=== PATIENT | female | born 1965 | race Caucasian/White ===

== ENCOUNTER 2019-11-24 22:15 | Emergency (ER) | payer MEDICARE, MEDICAID, SELFPAY ==
[2019-11-24 22:20] VITALS: O2SAT 86
[2019-11-24 22:29] VITALS: BP 120/76; BP 169/73; PULSE 66; PULSE 69; RESP 16; TEMP 36.5; O2SAT 94; O2SAT 97; BMI 39.5
[2019-11-24 23:09] VITALS: PULSE 65; RESP 16; O2SAT 97
--- NOTE | 2019-11-24 23:09 | XR_ITS ---
EXAMINATION: XR CHEST CLINICAL INFORMATION: Shortness of breath COMPARISON: None TECHNIQUE: Frontal view of the chest was obtained. FINDINGS: Heart size within normal limits. CHF. Some minimal bibasilar densities are seen which may represent atelectasis. An early infiltrate cannot be excluded, especially on the right. A tiny right pleural effusion may be present. No left effusion is seen. IMPRESSION: Mild bibasilar density. An early infiltrate could be present
--- NOTE | 2019-11-24 23:09 | ECG_ITS ---
Test Reason : SOB Blood Pressure : / mmHG Vent. Rate : 066 BPM Atrial Rate : 066 BPM P-R Int : 164 ms QRS Dur : 078 ms QT Int : 430 ms P-R-T Axes : 051 052 134 degrees QTc Int : 450 ms Normal sinus rhythm ST & T wave abnormality, consider lateral ischemia Abnormal ECG No previous ECGs available Referred By: Catalino Pinto Electronically Signed By:HILLARY DUMONT
--- NOTE | 2019-11-24 23:29 | ED.SOB ---
HPI - SOB/Dyspnea General Chief Complaint: Dyspnea Stated Complaint: shortness of breath Time Seen by Provider: 11/24/19 23:07 Source: patient Mode of arrival: EMS History of Present Illness HPI Narrative: 54-year-old female coming in from respite care secondary to shortness of breath, not taking medications and agitation. Patient is a poor historian unable to obtain a proper history from patient MD elicited complaint: shortness of breath Related Data Home oxygen amount: none Allergies Allergy/AdvReac Type Severity Reaction Status Date / Time Penicillins Allergy Mild unkown Verified 11/24/19 23:09 Sulfa (Sulfonamide Allergy Mild unknown Verified 11/24/19 23:09 Antibiotics) Review of Systems Review of Systems: unable to obtain secondary to poor historian PMF Past Medical History Attestation statement: The following information was validated with the patient. Medical History Bipolar 1 disorder Diabetes HTN (hypertension) Kidney disease Social History Social History Alcohol intake: never Smoking Status: Current every day smoker Smoked in Last 30 Days: Yes Use of substances other than those prescribed or required for medical reasons: No Advance Directives: No Advance Directives Information Provided: Yes Physical Exam Vital Signs and I&O and Narrative: Vital Signs and I&O: Vital Signs Temp 97.7 F 11/24/19 22:29 Pulse 69 11/24/19 22:29 Resp 16 11/24/19 22:29 BP 169/73 H 11/24/19 22:29 Pulse Ox 94 11/24/19 22:29 Intake & Output 11/24/19 11/24/19 11/25/19 06:59 18:59 06:59 Weight 111.13 kg Body Mass Index 39.5 reviewed vital signs Const: Other: Appearance: Alert. obese awake and following commands No acute distress. Eyes: Pupils equal, round and reactive to light. ENT: Pharynx normal. Neck: Normal inspection. Neck supple. CVS: Normal heart rate and rhythm. Pulses normal. Respiratory: mild respiratory distress. Decreased bilateral breath sounds no rales no wheezing Abdomen: Soft and nontender. Skin: Skin warm and dry. Normal skin color. Normal skin turgor. Extremities: positive bilateral lower extremity edema. no rational lacerations no bleeding Neuro: awake and following simple commands. No motor deficit. No sensory deficit. General: cooperative Course Course Hospital Course: my differential diagnosis includes pulmonary embolism, acute coronary syndrome, heart failure, pneumonia MDM - SOB/Dyspnea Lab Data Attestation: I reviewed the patient's lab results. ECG Data Attestation: I personally reviewed and interpreted this ECG as follows: Interpretation: rate of 66, normal sinus rhythm. Normal axis. Nonspecific ST TT changes. No STEMI
[2019-11-24 23:46] LABS: MANUAL DIFF FLAG NO
[2019-11-24 23:50] LABS: Basophils Absolute Auto 0.1 X10*3/uL (0.0-0.2); Basophils Percent Auto 1.1 % (0-2); Eosinophils Absolute Auto 0.3 X10*3/uL (0.0-0.4); Eosinophils Percent Auto 4.4 % (0-4); Hematocrit 25.6 % (37-47); Hemoglobin 8.3 g/dl (12.0-16.0); Imm Gran Abs Auto 0.02 X10*3/uL (0.00-0.03); Imm Gran Pct Auto 0.3 % (0.0-0.4); Lymphocytes Absolute Auto 2.8 X10*3/uL (1.2-4.9); Lymphocytes Percent Auto 46.3 % (20-40); Mean Corpuscular HGB Conc 32.4 g/dl (31.0-35.0); Mean Corpuscular Volume 92.4 fL (80-98); Mean Platelet Volume 11.1 fL (9.4-12.3); Monocytes Absolute Auto 0.6 X10*3/uL (0.1-1.2); Monocytes Percent Auto 10.3 % (2-11); Neutrophils Absolute Auto 2.3 X10*3/uL (2.0-8.3); Neutrophils Percent Auto 37.6 % (45-73); Platelet Count 202 X10*3/uL (160-400); Red Blood Count 2.77 X10*6/uL (4.20-5.50); Red Cell Distribution Width 14.5 % (11.0-16.0); White Blood Count 6.1 X10*3/uL (4.8-10.8)
[2019-11-25] VITALS (10 sets, daily range): BP systolic 120–152; BP diastolic 46–84; PULSE 66–127; RESP 16–23; TEMP 36.1–37.2; O2SAT 93–98
--- NOTE | 2019-11-25 | CT_ITS ---
EXAMINATION: CT PULMONARY EMBOLISM STUDY CLINICAL INFORMATION: Hypoxia. COMPARISON: 11/24/2019. TECHNIQUE: Contiguous helical images of the chest were obtained following the administration of IV contrast. Multiplanar reconstructions were performed. MIPS were obtained and reviewed. DLP: 453 mGy-cm. CONTRAST: 65 mL of Omnipaque 350 were administered without incident. FINDINGS: The heart is of normal size. There is no pericardial effusion. The great vessels are unremarkable. Specifically, there is no pulmonary arterial filling defect. There is no CT evidence for pulmonary embolism. There are no chest wall masses. Review of lung windows demonstrates that there are no pneumothoraces. There are small bilateral pleural effusions with associated bilateral lower lobe atelectasis. Limited evaluation of the upper abdomen demonstrates that the liver is of normal size and attenuation without focal lesions. Normal adrenal glands are identified. IMPRESSION: No CT evidence for pulmonary embolism. Small bilateral pleural effusions with associated bibasilar atelectasis. Automated exposure control (Care Dose) Adjustment of the mA and/or kv according to patient size (this includes techniques or standardized protocols for targeted exams where dose is matched to indication / reason for exam; i.e. extremities or head).
[2019-11-25 00:03] LABS: D Dimer 639 NG/ML
[2019-11-25 00:21] LABS: B Type Natriuretic Peptide 739 pg/mL (<100); Troponin-I High Sensitivity 4.6 ng/L (<3.5-17.0)
[2019-11-25 00:24] LABS: Alanine Aminotransferase 7 U/L (0-31); Albumin Level 2.9 g/dL (3.5-5.0); Alkaline Phosphatase 45 U/L (39-117); Anion Gap 14 (12-20); Aspartate Amino Transferase 10 U/L (5-31); Bilirubin Direct < 0.2 mg/dL (0.0-0.5); Bilirubin Total 0.2 mg/dL (0.0-1.0); Blood Urea Nitrogen 14 mg/dL (9-16); Calcium 8.6 mg/dL (8.4-10.2); Carbon Dioxide 24 mmol/L (22-29); Chloride 104 mmol/L (96-108); Creatinine Clr Calc Pharmacy 75.6; Estimated Glomerular Filt Rate 52; Glucose Random 76 mg/dL (60-115); Lipase 10 U/L (8-78); Potassium 4.3 mmol/l (3.3-5.1); Sodium 138 mmol/L (135-145); Total Protein 5.5 g/dL (6.5-8.0)
--- NOTE | 2019-11-25 00:58 | ED.GENADULT ---
HPI - General Adult General Chief complaint: Dyspnea Stated complaint: shortness of breath Time Seen by Provider: 11/24/19 23:07 Source: patient Mode of arrival: EMS History of Present Illness HPI narrative: patient sent over by respite for not acting right, history of bipolar not taking medications and depressed. He also noted that she had bilateral leg edema with shortness of breath. Sent over on a Section [facility] to be evaluated by crisis. And medically. Patient recently discharged from [facility] for similar Onset (ago): day(s) Severity: mild Related Data Home Medications Medication Instructions Recorded Confirmed Abilify 11/25/19 Abilify 30 mg DAILY 11/25/19 11/25/19 Colace 100 mg BID 11/25/19 11/25/19 Vistaril 50 mg TID 11/25/19 11/25/19 acetaminophen [Mapap Extra 1 tab PO Q6H PRN 11/25/19 11/25/19 Strength] divalproex 3 tab PO BEDTIME 11/25/19 11/25/19 lisinopril 1 tab PO DAILY 11/25/19 11/25/19 metformin 1 tab PO BID 11/25/19 11/25/19 metoprolol succinate 1 tab PO DAILY 11/25/19 11/25/19 multivitamin [Daily-Lisa] 1 tab PO DAILY 11/25/19 11/25/19 olanzapine 1 tab PO DAILY PRN 11/25/19 11/25/19 prazosin 1 mg PO BID 11/25/19 11/25/19 senna 8.6 mg BID 11/25/19 11/25/19 trazodone 4 tab PO BEDTIME 11/25/19 11/25/19 Allergies Allergy/AdvReac Type Severity Reaction Status Date / Time Penicillins Allergy Mild unkown Verified 11/24/19 23:09 Sulfa (Sulfonamide Allergy Mild unknown Verified 11/24/19 23:09 Antibiotics) Review of Systems Review of Systems: Constitutional : obese No Fever, No Chills, No Night Sweats, No Fatigue, No Malaise ENT/Mouth : No Hearing loss, No Ear Pain, No Nasal Congestion, No Sinus Pain, No Hoarseness, No sore throat, No Rhinorrhea, No Swallowing Difficulty Eyes: No Eye Pain, No Swelling, No Redness, No Foreign Body, No Discharge, No Vision Changes Cardiovascular : No Chest Pain, No SOB, No Dyspnea on Exertion, No Orthopnea, No Edema, No Palpitations Respiratory : No Cough, No Sputum, No Wheezing, No Smoke Exposure, No Dyspnea Gastrointestinal : No Nausea, No Vomiting, No Diarrhea, No Constipation, No abdominal Pain, No Hematochezia, No Melena Genitourinary : no irregular bleeding, No Dysuria, No Urinary Frequency, No Hematuria, No Urinary Incontinence, No Urgency, No Flank Pain, No Urinary Flow Changes, No Hesitancy Musculoskeletal : No joint pain, No Myalgias, bilateral pitting edema without ecchymosis without lacerations Skin : No Skin Lesions, No rash Neuro : No Weakness, No Numbness, No Paresthesias, No Loss of Consciousness, No Dizziness, No Headache Psych : No Anxiety/Panic, No Depression, No SI/HI/AH/VH, No Social Issues, Heme/Lymph: No Bruising, No Bleeding,No Lymphadenopathy Endocrine : No Polyuria, No Polydipsia, No Temperature Intolerance [facility] Past Medical History Medical History Bipolar 1 disorder Diabetes HTN (hypertension) Kidney disease Social History Social History Alcohol intake: never Smoking Status: Current every day smoker Smoked in Last 30 Days: Yes Use of substances other than those prescribed or required for medical reasons: No Advance Directives: No Advance Directives Information Provided: Yes Physical Exam Vital Signs and I&O and Narrative: Vital Signs and I&O: Vital Signs Temp 97.7 F 11/24/19 22:29 Pulse 67 11/25/19 00:04 Resp 23 H 11/25/19 00:04 BP 120/46 L 11/25/19 00:04 Pulse Ox 98 11/25/19 00:04 Intake & Output 11/24/19 11/24/19 11/25/19 06:59 18:59 06:59 Weight 111.13 kg Body Mass Index 39.5 vital signs noted Const: Other: Appearance: Alert. awake and alert No acute distress. Eyes: Pupils equal, round and reactive to light. ENT: Pharynx normal. Neck: Normal inspection. Neck supple. CVS: Normal heart rate and rhythm. Pulses normal. Respiratory: No respiratory distress. Breath sounds normal. Abdomen: Soft and nontender. Skin: Skin warm and dry. Normal skin color. Normal skin turgor. Extremities: positive bilateral pain and edema, no abrasions, no lacerations, intact neurovascular Neuro: awake and alert No motor deficit. No sensory deficit. General: cooperative Course Course Hospital Course: my differential diagnosis includes pulmonary embolism, acute coronary syndrome, heart failure, pneumonia Reevaluation(s) Reevaluation #1: patient sent to the emergency department for medical and psychiatric evaluation. Patient with a transient drop of oxygen however off oxygen patient remains well above 92%. Unless sleeping. CT scan of the chest without evidence of PE. 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 Will medically clear for evaluation on pH in Time: 01:50 Medical Decision Making Medical Records Medical records reviewed: Yes I reviewed the patient's medical records. Medical records narrative: records from [facility] with the discharge of 11/22/2019 were reviewed by me. records indicate that patient was there for shortness of breath as well as psychiatric evaluation. Patient was noted to have bilateral pedal edema in which was evaluated and had at echocardiogram on November 20 with a EF of 60 65%. patient was also worked up for anemia in which revealed microcytic anemia due to iron deficiency. Discharge labs on November 21 revealed that a hemoglobin of 8.1 and 25.1 hematocrit, in which 2 days numbers are 8.3 and 25 which are improved on arrival patient's BNP was greater than 3000 in which today's is improved at 739 Patient also had a venous Doppler of the bilateral extremities which showed edema no clots workup at [facility] secondary to shortness of breath and pedal edema reveal that today's workup is much improved. However at this point patient did have transient drop of oxygen and will do a CT scan of the chest for rule out PE secondary to an elevated D-dimer. Lab Data Lab results reviewed: Yes I reviewed the patient's lab results. Result diagrams: 11/24/19 23:39 11/24/19 23:39 Labs: Lab Results 11/24/19 11/24/19 11/24/19 Range/Units 23:39 23:39 23:39 WBC 6.1 (4.8-10.8) X10*3/uL RBC 2.77 L (4.20-5.50) X10*6/uL Hgb 8.3 L (12.0-16.0) g/dl Hct 25.6 L (37-47) % MCV 92.4 (80-98) fL MCH 30.0 (27.0-33.0) pg MCHC 32.4 (31.0-35.0) g/dl RDW 14.5 (11.0-16.0) % Plt Count 202 (160-400) X10*3/uL MPV 11.1 (9.4-12.3) fL Immature Gran % (Auto) 0.3 (0.0-0.4) % Neut % (Auto) 37.6 L (45-73) % Lymph % (Auto) 46.3 H (20-40) % [place] % (Auto) 10.3 (2-11) % Eos % (Auto) 4.4 H (0-4) % Baso % (Auto) 1.1 (0-2) % Neut # (Auto) 2.3 (2.0-8.3) X10*3/uL Lymph # (Auto) 2.8 (1.2-4.9) X10*3/uL [place] # (Auto) 0.6 (0.1-1.2) X10*3/uL Eos # (Auto) 0.3 (0.0-0.4) X10*3/uL Baso # (Auto) 0.1 (0.0-0.2) X10*3/uL Abs Immat Gran (auto) 0.02 (0.00-0.03) X10*3/uL Absolute Nucleated RBC 0.000 (0.0-0.012) X10*3/uL Nucleated RBC % (auto) 0.0 (0.0-0.2) /100WBC D-Dimer 639 NG/ML Hold Blue Top SEE NOTE Sodium 138 (135-145) mmol/L Potassium 4.3 (3.3-5.1) mmol/l Chloride 104 (96-108) mmol/L Carbon Dioxide 24 (22-29) mmol/L Anion Gap 14 (12-20) BUN 14 (9-16) mg/dL Creatinine 1.10 (0.5-1.4) mg/dL Estim Creat Clear Calc 75.6 Estimated GFR 52 Random Glucose 76 (60-115) mg/dL Calcium 8.6 (8.4-10.2) mg/dL Total Bilirubin 0.2 (0.0-1.0) mg/dL Direct Bilirubin < 0.2 (0.0-0.5) mg/dL AST 10 (5-31) U/L ALT 7 (0-31) U/L Alkaline Phosphatase 45 (39-117) U/L Troponin I High Sens (<3.5-17.0) ng/L B-Natriuretic Peptide (<100) pg/mL Total Protein 5.5 L (6.5-8.0) g/dL Albumin 2.9 L (3.5-5.0) g/dL Lipase 10 (8-78) U/L 11/24/19 Range/Units 23:39 WBC (4.8-10.8) X10*3/uL RBC (4.20-5.50) X10*6/uL Hgb (12.0-16.0) g/dl Hct (37-47) % MCV (80-98) fL MCH (27.0-33.0) pg MCHC (31.0-35.0) g/dl RDW (11.0-16.0) % Plt Count (160-400) X10*3/uL MPV (9.4-12.3) fL Immature Gran % (Auto) (0.0-0.4) % Neut % (Auto) (45-73) % Lymph % (Auto) (20-40) % [place] % (Auto) (2-11) % Eos % (Auto) (0-4) % Baso % (Auto) (0-2) % Neut # (Auto) (2.0-8.3) X10*3/uL Lymph # (Auto) (1.2-4.9) X10*3/uL [place] # (Auto) (0.1-1.2) X10*3/uL Eos # (Auto) (0.0-0.4) X10*3/uL Baso # (Auto) (0.0-0.2) X10*3/uL Abs Immat Gran (auto) (0.00-0.03) X10*3/uL Absolute Nucleated RBC (0.0-0.012) X10*3/uL Nucleated RBC % (auto) (0.0-0.2) /100WBC D-Dimer NG/ML Hold Blue Top Sodium (135-145) mmol/L Potassium (3.3-5.1) mmol/l Chloride (96-108) mmol/L Carbon Dioxide (22-29) mmol/L Anion Gap (12-20) BUN (9-16) mg/dL Creatinine (0.5-1.4) mg/dL Estim Creat Clear Calc Estimated GFR Random Glucose (60-115) mg/dL Calcium (8.4-10.2) mg/dL Total Bilirubin (0.0-1.0) mg/dL Direct Bilirubin (0.0-0.5) mg/dL AST (5-31) U/L ALT (0-31) U/L Alkaline Phosphatase (39-117) U/L Troponin I High Sens 4.6 (<3.5-17.0) ng/L B-Natriuretic Peptide 739 H (<100) pg/mL Total Protein (6.5-8.0) g/dL Albumin (3.5-5.0) g/dL Lipase (8-78) U/L Discharge Plan Discharge Clinical Impression: Bipolar 1 disorder, Depression, Pedal edema Prescriptions: No Action Abilify 30 mg DAILY RF: 0 Abilify RF: 0 multivitamin [Daily-Lisa] Tablet 1 tab PO DAILY RF: 0 metformin 500 mg tablet 1 tab PO BID RF: 0 trazodone 50 mg tablet 4 tab PO BEDTIME RF: 0 metoprolol succinate 50 mg tablet extended release 24 hr 1 tab PO DAILY RF: 0 prazosin 1 mg capsule 1 mg PO BID RF: 0 olanzapine 5 mg tablet 1 tab PO DAILY PRN (Reason: Agitation) RF: 0 acetaminophen [Mapap Extra Strength] 500 mg tablet 1 tab PO Q6H PRN (Reason: pain) RF: 0 lisinopril 10 mg tablet 1 tab PO DAILY RF: 0 divalproex 500 mg tablet extended release 24 hr 3 tab PO BEDTIME RF: 0 Colace 100 mg BID RF: 0 senna 8.6 mg BID RF: 0 Vistaril 50 mg TID RF: 0
[2019-11-25] MEDS: iohexoL 350 MG/ML 100 ML INFUS..BTL 75 ML IV (01:37)
--- NOTE | 2019-11-25 02:01 | PC.NURSE ---
Pt semi fowlers in bed, no distress and oxygen removed by provider. Pt s spo2 remains in 90 s. pt expressed that she has been depressed, and was discharged from respite, now has no place to live. Pt has her lock box with RX medications with her. When asked why she wouldn t take her medications, she said i was too tired, why bother. Pt mentions that she has a history of bipolar disorder and had something happen to her recently that she doesn't want to talk about.
--- NOTE | 2019-11-25 02:17 | PC.NURSE ---
SUMMARY FAXED TO [facility]
--- NOTE | 2019-11-25 02:45 | PC.NURSE ---
pt refusing anything to eat or drink. Pt has not had evening medications,
[2019-11-25 06:51] LABS: Glucose, Whole Blood 76 mg/dL (60-115)
--- NOTE | 2019-11-25 07:13 | PC.NURSE ---
Pt sat up out from her bed, got dressed and walked down the hallway towards the exit. Pt stopped at the door, security assisted walking patient to the [facility]. IV's removed.
--- NOTE | 2019-11-25 07:14 | PC.NURSE ---
REPORT RECIEVED. PT AMBULATED TO POD WITH STEADY GAIT, PT RESPONDING APPROPRIATELY TO STAFF, PT DENIES COMPLAINTS.
--- NOTE | 2019-11-25 09:30 | PC.NURSE ---
pt resting, calm and cooperative, reporting anxiety, provider aware.
[2019-11-25] MEDS: Multivitamin TABLET 1 TAB PO (10:18)
[2019-11-25] MEDS: ARIPiprazole 30 MG TABLET PO (10:18)
[2019-11-25] MEDS: metFORMIN HCl 500 MG TABLET PO (10:19)
[2019-11-25] MEDS: Metoprolol Succinate ER 50 MG TAB.ER.24H PO (10:46)
[2019-11-25] MEDS: Prazosin HCL 1 MG CAPSULE PO ×2 (10:47→21:08)
[2019-11-25] MEDS: lisinopriL 10 MG TABLET PO (10:47)
[2019-11-25] MEDS: OLANZapine 5 MG TABLET PO (11:21)
--- NOTE | 2019-11-25 11:22 | PC.NURSE ---
MEDICATED FOR BUILDING ANXIETY. PT HAS BEEN TOLD THAT SHE IS A CASE MNGNT FOR PLACEMENT. IS EAGER TO LEAVE EVEN THOUGH SHE HAS NOWHERE TO GO. THIS RN SUSPECTS THAT PT IS INCAPABLE OF COMPREHENDING CONSEQUENCES OF HER DECISIONS. IS EASILY REDIRECTABLE BUT FREQUENTLY ASKS TO GO HOME.
--- NOTE | 2019-11-25 12:05 | PC.NURSE ---
THIS RN CALLING CASE MANAGMENT. PT WAS ATTEMPTING TO ELOPE AND DIFFICULT TO REDIRECT. STOOD AT EXIT TO POD FOR 15-20 MINUTES. SECURITY WAS CALLED. PT EVENTUALLY REDIRECTED TO BED ONCE SECURITY PRESENT AND STATES IF IM GOING TO STAY HERE I'M GOING TO NEED SOME STRONG MEDS CASE MNGMENT SUGGESTING PSYCHCONSULT FOR DECISION MAKING ABILITY
--- NOTE | 2019-11-25 12:09 | PC.NURSE ---
MARY ANN FROM [facility] CALLING TO SPEAK WITH HAZEL DIRECTLY. STATES THAT PATIENT WILL SABATOG PLACEMENT AND WOULD LIKE TO SPEAK WITH PATIENT DIRECTLY TO ASSESS WILLINGNESS TO TAKE PLACEMENT. PT HAS BEEN HOPING FOR A BED AT [facility] BUT THERE WAS A COVIUD OUTBREAK. RECENTLY DX WITH CHF, HAD DIFF WITH ADL'S. PT IS ALLOWED TO KEEP SWEATPANTS ON IN POD BECAUSE OTHER AREAS OF COPERATION ARE TAKING PRIORITY. SECURITY CHECKED POCKETS.
--- NOTE | 2019-11-25 12:14 | MHC.CM.ED ---
Received case management consult. Patient came to ER from [facility]. Patient evaluated by [facility]. Cleared from crisis stand point. [facility] is not able to accept patient back. [facility] would agree to pay for motel for patient. However, she is not participating in daily ADL's. Referral broadcasted in [employer]. [facility] is able to offer a bed. Per Sylvia CUELLAR, patient has been trying to elope from the pod. She is alert and oriented but it is unsure if she has the ability to make her own medical decisions. Psych consult has been ordered to see if HCP needs to be invoked. Continue to monitor for d/c needs.
[2019-11-25] MEDS: hydrOXYzine HCL 50 MG TABLET PO ×2 (12:32→22:50)
[2019-11-25] MEDS: Nicotine 14 MG PATCH.TD24 TRANSDERMA (12:32)
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
--- NOTE | 2019-11-25 13:38 | MHC.CM.ED ---
Received telephone call from patient's [facility] worker, Rhoda. Rhoda can be reached via telephone at [phone]. Rhoda has gotten patient to agree to rehab. However patient is requesting to be at a facility that would allow her to smoke. T/W explained there were only 2 facilities prior to Covid that allowed patients to smoke. During the current pandemic, there are no facilities that will allow this. Rhoda will speak to patient. Continue to monitor for d/c needs.
--- NOTE | 2019-11-25 14:59 | MHC.CM.ED ---
Addendum entered by Jihan Matias 11/25/19 15:41: Patient was accepted at [facility], not [place]. Original Note: Received telephone call from Rhoda son [facility]. Patient is agreeable to going to [facility]. She is requesting prescription for nicotine patch and lozenges. Patient will need PASRR Level 2. Clinicals faxed to [facility]. Don't anticipate exemption letter will be received before tomorrow. Anticipate patient will remain in ER overnight night. Continue to monitor for d/c needs.
--- NOTE | 2019-11-25 15:23 | PC.NURSE ---
PT GETTING AGGITATED BUT ABLE TO REDIRECTABLE REQUESTING HALDOL. THIS RN TO REQUEST OF PROVIDER.
[2019-11-25] MEDS: haloperidoL 5 MG TABLET PO (16:08)
--- NOTE | 2019-11-25 20:24 | PC.NURSE ---
Patient in bed appears sleeping comfortably, safety check maintained as ordered. Will continue to monitor.
[2019-11-25] MEDS: Divalproex Sodium ER 500 MG TAB.ER.24H 1500 MG PO (21:06)
[2019-11-25] MEDS: traZODone HCL 50 MG TABLET 200 MG PO (21:07)
--- NOTE | 2019-11-25 22:02 | PC.NURSE ---
Patient in bed lying on/off sleeping. Compliant with HS PO medication. Compliant with care. Denied SI/HI/AVH. Will continue to monitor.
[2019-11-26 01:28] VITALS: BP 165/65; PULSE 79; RESP 18; TEMP 36.7; O2SAT 92
[2019-11-26] MEDS: OLANZapine 5 MG TABLET PO ×2 (01:31→16:10)
--- NOTE | 2019-11-26 01:33 | PC.NURSE ---
Patient out of room after having incontinence bladder episode, incontinence care & support provided, patient compliant with care. Requested for haldol, educated patient has prn Olanzapine 5 mg but was prn daily order next prn is due in the morning. Provider notified/ordered one time Olanzapine 5 mg/administered as ordered. Patient currently in bed lying. Will continue to monitor.
--- NOTE | 2019-11-26 04:01 | PC.NURSE ---
Patient in bed appears sleeping, no distress observed/reported, respiration +/=/non-labored bilaterally. Will continue to monitor.
--- NOTE | 2019-11-26 06:31 | PC.NURSE ---
Patient in bed appears sleeping. Patient was briefly up in bed and back to bed. No distress observed/reported. Respiration +/=/non-labored bilaterally. Will continue to monitor.
[2019-11-26] MEDS: metFORMIN HCl 500 MG TABLET PO ×2 (09:21→23:19)
[2019-11-26] MEDS: Metoprolol Succinate ER 50 MG TAB.ER.24H PO (09:21)
[2019-11-26] MEDS: hydrOXYzine HCL 50 MG TABLET PO ×3 (09:22→23:05)
[2019-11-26] MEDS: Multivitamin TABLET 1 TAB PO (09:22)
[2019-11-26] MEDS: Prazosin HCL 1 MG CAPSULE PO ×2 (09:22→23:05)
[2019-11-26] MEDS: lisinopriL 10 MG TABLET PO (09:22)
[2019-11-26] MEDS: Docusate Sodium 100 MG CAPSULE PO (09:22)
[2019-11-26] MEDS: Sennosides 8.6 MG TABLET PO (09:22)
--- NOTE | 2019-11-26 09:33 | PC.NURSE ---
pt laying on right side on bed. pt sts she will not take her medication unless she knows that she is leaving today. This RN assured pt that a plan is in place for her to leave but the exact time is unknown. pt agreed to take medication but not colace or sennoside. pt is calm & cooperative. pt sts I don't want to give you a hard time, it's just really boring in here
[2019-11-26 09:43] VITALS: BP 136/61; PULSE 67; RESP 18; TEMP 36.4; O2SAT 92
[2019-11-26] MEDS: ARIPiprazole 30 MG TABLET PO (10:37)
[2019-11-26] MEDS: Nicotine 21 MG PATCH.TD24 TRANSDERMA (12:11)
--- NOTE | 2019-11-26 12:15 | PC.NURSE ---
patient agitated about not having her nicotine patch yet, order was obtained, patient medicated per order, patch placed on rt upper arm per patient request. patient has since calmed.
--- NOTE | 2019-11-26 13:30 | MHC.CM.ED ---
pls call mora at [facility] at [phone] when we have a dc time. at this time we are still waiting for the paa letter. cm to cont. to follow.
--- NOTE | 2019-11-26 15:55 | PC.NURSE ---
PT AGITATED Pt becoming increasingly agitated, wants to leave. Yelling and swearing at staff and patients. Requesting medication, given vistaril. Scottie from case management here to speak with patient.
[2019-11-26] MEDS: LORazepam 1 MG TABLET 2 MG PO (16:10)
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
--- NOTE | 2019-11-26 19:30 | PC.NURSE ---
PT CURRENTLY ASLEEP, NO SIGNS OF DISTRESS, RESPIRATIONS UNLABORED
[2019-11-26] MEDS: Divalproex Sodium ER 500 MG TAB.ER.24H 1500 MG PO (23:04)
[2019-11-26 23:05] VITALS: BP 134/50; PULSE 71
[2019-11-26] MEDS: traZODone HCL 50 MG TABLET 200 MG PO (23:05)
[2019-11-26 23:14] VITALS: BP 134/50; PULSE 71; RESP 16; TEMP 36.1; O2SAT 93
[2019-11-26 23:47] VITALS: BP 134/50; PULSE 71; RESP 16; TEMP 36.1; O2SAT 93
[2019-11-27] VITALS (8 sets, daily range): BP systolic 126–137; BP diastolic 8–74; PULSE 75–90; RESP 16–18; TEMP 36.8; O2SAT 93
--- NOTE | 2019-11-27 01:28 | PC.NURSE ---
Patient compliant with her medication, pt needed help to get up for medication, compliant with most of her HS medication accept laxatives. Denied distress. Will continue to monitor.
--- NOTE | 2019-11-27 02:08 | PC.NURSE ---
Patient in bed appears sleeping, no distress observed/reported, respiration +/=/non-labored bilaterally. Will continue to monitor.
--- NOTE | 2019-11-27 04:05 | PC.NURSE ---
Patient in bed appears sleeping. No distress observed/reported. Respiration +/=/non-labored bilaterally. Will continue to monitor .
--- NOTE | 2019-11-27 06:40 | PC.NURSE ---
Patient just got out of room enquiring about her discharge. Patient made aware of the process. Patient calm and appears frustrated for being here for too long. Patiewnt is in goo behavioral control. Slept well.
--- NOTE | 2019-11-27 07:12 | PC.NURSE ---
Report received. PT is sleeping in bed. Breathing is even and unlabored. Awaiting transfer to [facility].
[2019-11-27] MEDS: Multivitamin TABLET 1 TAB PO (09:16)
[2019-11-27 09:17] LABS: Glucose, Whole Blood 77 mg/dL (60-115)
[2019-11-27] MEDS: Prazosin HCL 1 MG CAPSULE PO (09:17)
[2019-11-27] MEDS: lisinopriL 10 MG TABLET PO (09:18)
[2019-11-27] MEDS: Metoprolol Succinate ER 50 MG TAB.ER.24H PO (09:19)
[2019-11-27] MEDS: hydrOXYzine HCL 50 MG TABLET PO (09:19)
[2019-11-27] MEDS: metFORMIN HCl 500 MG TABLET PO (09:19)
[2019-11-27] MEDS: ARIPiprazole 30 MG TABLET PO (09:19)
--- NOTE | 2019-11-27 10:21 | PC.NURSE ---
Addendum entered by Jose Manuel Villarreal 11/27/19 10:34: PT is resting in bed. Calm and cooperative. Waiting to be transferred to [facility]. No complaints at this time. Original Note: PT resting in bed. Calm and cooperative. Waiting to be transferred to . No complaints at this time.
--- NOTE | 2019-11-27 10:22 | MHC.CM.ED ---
Patient remains in ER. PASRR letter obtained. Clinical updates sent to [facility] via [employer]. Rapid Covid is pending. Continue to monitor for d/c needs.
[2019-11-27 11:23] LABS: SARS COV2 PCR INHOUSE NEGATIVE (Negative)
--- NOTE | 2019-11-27 11:52 | MHC.CM.ED ---
MDS completed and sent to [facility] and [facility]. Covid swab is negative. Patient can leave at 1pm. [facility] booked. [facility] with chart. Patient, Rhoda of [facility], Breanna ROSENBERG and Shawn CUELLAR aware. Continue to monitor for d/c needs.
[2019-11-27] MEDS: OLANZapine 5 MG TABLET PO (12:40)
[2019-11-27] MEDS: Nicotine 14 MG PATCH.TD24 TRANSDERMA (12:40)
--- NOTE | 2019-11-27 13:07 | PC.NURSE ---
PT resting, awaiting transfer, calm and cooperative, denies complaints.
--- NOTE | 2019-11-27 14:18 | MHC.CM.ED ---
Late entry from 11/26/2019: Psych consult was ordered for Neeta Martinez for capacity to make medical decisions. Consult is no longer needed. Neeta Martinez aware.
== END 2019-11-27 13:36 | disposition skilled nursing facility (03) ==
PROVIDERS: Physician Assistant; Emergency Provider Emergency Medicine
DX: F32.9 Major depressive disorder, single episode, unspecified (principal); R60.0 Localized edema; Z20.828 Contact with and (suspected) exposure to other viral communicable diseases; E11.9 Type 2 diabetes mellitus without complications; I10 Essential (primary) hypertension; F17.200 Nicotine dependence, unspecified, uncomplicated; Z71.6 Tobacco abuse counseling; Z79.84 Long term (current) use of oral hypoglycemic drugs; Z79.899 Other long term (current) drug therapy
CPT/HCPCS: 36415; 71045; 71275; 80048; 80076; 82947; 83690; 83880; 84484; 85025; 85379; 87635; 93005; 93010; 97161; 97166; 99285

== ENCOUNTER 2019-12-20 10:22 | Outpatient (REF) | payer MEDICARE, MEDICAID, SELFPAY | END 2019-12-20 10:23 | disposition home or self-care (01) | LOC: HO.LAB 10:22 | PROVIDERS: Visit Provider Internal Medicine | DX: Z20.828 Contact with and (suspected) exposure to other viral communicable diseases (principal) | CPT/HCPCS: U0003 ==

== ENCOUNTER 2021-05-05 00:38 | Inpatient (IN) | payer MEDICARE, SELFPAY ==
[2021-05-05 01:00] VITALS: BP 153/67; PULSE 85; RESP 18; TEMP 36.2; O2SAT 97
[2021-05-05 02:00] VITALS: BMI 32.5
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
[2021-05-05 09:27] VITALS: BP 195/99; PULSE 87; RESP 17; TEMP 36.3; O2SAT 97
[2021-05-05 10:55] LABS: Glucose, Whole Blood 162 mg/dL (60-115)
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
[2021-05-05] MEDS: Metoprolol Succinate ER 50 MG TAB.ER.24H PO (13:39)
[2021-05-05] MEDS: Colchicine 0.6 MG TABLET PO (13:40)
[2021-05-05] MEDS: dilTIAZem HCL CD 180 MG CAP.ER.24H 360 MG PO (13:40)
[2021-05-05 13:41] VITALS: BP 188/82; PULSE 94; RESP 17; O2SAT 100
--- NOTE | 2021-05-05 14:39 | MHC.CLN ---
NUTRITION PATIENT REPORTS 100# WEIGHT LOSS X 1 YEAR. PLEASED WITH WEIGHT LOSS. STATED THAT SKILLED NURSING WATCHES PATIENT'S INTAKE. NOT TAKING DM MEDS AND WANTS REGULAR DIET. REPORTS NO TEETH BUT OK FOR REGULAR DIET.
--- NOTE | 2021-05-05 17:27 | PC.NURSE ---
medication list recieved from correction, home med list updated.
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
[2021-05-05 23:06] VITALS: BP 150/67; PULSE 75; TEMP 36.6; O2SAT 94
[2021-05-05] MEDS: OLANZapine 10 MG TABLET PO (23:10)
[2021-05-05] MEDS: Prazosin HCL 1 MG CAPSULE PO (23:10)
[2021-05-05] MEDS: traZODone HCL 50 MG TABLET PO (23:19)
[2021-05-05] MEDS: Divalproex Sodium ER 500 MG TAB.ER.24H 1000 MG PO (23:20)
[2021-05-05] MEDS: Acetaminophen 325 MG TABLET 650 MG PO (23:28)
[2021-05-06] MEDS: Levothyroxine Sodium 125 MCG TABLET PO (06:49)
[2021-05-06 08:35] LABS: Glucose, Whole Blood 90 mg/dL (60-115)
[2021-05-06 08:51] VITALS: BP 170/78; PULSE 75; RESP 16; TEMP 36.4; O2SAT 100
[2021-05-06 08:58] LABS: Alanine Aminotransferase 9 U/L (0-31); Albumin Level 3.2 g/dL (3.5-5.0); Alkaline Phosphatase 78 U/L (39-117); Anion Gap 10 (12-20); Aspartate Amino Transferase 10 U/L (5-31); Bilirubin Total 0.3 mg/dL (0.0-1.0); Blood Urea Nitrogen 19 mg/dL (9-16); Calcium 9.5 mg/dL (8.4-10.2); Carbon Dioxide 27 mmol/L (22-29); Chloride 108 mmol/L (96-108); Cholesterol 145 mg/dL; Creatinine Clr Calc Pharmacy 81.3; Estimated Glomerular Filt Rate > 60; Glucose Fasting 88 mg/dL (60-99); HDL Cholesterol 35 mg/dL; LDL Cholesterol Calculated 90 mg/dl; Potassium 4.4 mmol/L (3.3-5.1); Sodium 141 mmol/L (135-145); Total Protein 5.8 g/dL (6.5-8.0); Triglycerides 101 mg/dL
--- NOTE | 2021-05-06 12:31 | P.PNPSI_ITS ---
Subjective Subjective Date of Service: 05/06/21 Reason For Visit: Bipolar Interim History: pt found resting in her bed in her room. rousable to voice. does not respond to MD's questions with more than monosyllabic yes/no's, grunts, or i want to go home today. one exception was when MD referred to the place where she lives as your home, and she retorted, i don't have a home. MD explained he felt pt should go home soon but we need to be sure her behavior is stable and the intermediate would determine when they might accept her back. and in order for them to accept her back, they would want to see her taking her medications and not throwing her walker in frustration as she did last night. she did not endorse a plan to attempt to comply with recommended medical treatment or to attempt to control her impulses. per staff, c/o anxiety and depression. wants to discharge. isolative, withdrawn. tearful and threw walker when she was unable to access her belongings yesterday. c/o feeling targeted by her intermediate. declining medications. Mental Status Exam Mental Status Exam Narrative: dressed in hospital attire. no PMA/PMR. not cooperative. speech soft, nml rate, decr amount, flattened prosody, incr latency. thoughts linear and logical. affect constricted, normo-intense, non-labile. mood not assessed. no SIBI/SI/HI/AVH expressed. Diagnostics Vital Signs (24Hr): Vital Signs - 24 hr 05/05/21 13:41 05/05/21 23:06 05/06/21 08:51 Temperature 97.8 F 97.6 F Pulse Rate 94 75 75 Respiratory Rate 17 16 Blood Pressure 188/82 H 150/67 H 170/78 H Pulse Oximetry 100 94 100 BMI result Body Mass Index 32.5 Labs Results: 05/06/21 08:04 Labs: Laboratory Results - last 48 hr 05/05/21 05/06/21 05/06/21 10:51 08:04 08:30 Sodium 141 Potassium 4.4 Chloride 108 Carbon Dioxide 27 Anion Gap 10 L BUN 19 H Creatinine 0.89 Estim Creat Clear Calc 81.3 Estimated GFR > 60 POC Glucose 162 H 90 Fasting Glucose 88 Calcium 9.5 D Total Bilirubin 0.3 AST 10 ALT 9 Alkaline Phosphatase 78 D Total Protein 5.8 L Albumin 3.2 L Triglycerides 101 Cholesterol 145 LDL Cholesterol, Calc 90 HDL Cholesterol 35 Medications Medications Current Medications Acetaminophen (Acetaminophen 325 Mg Tablet) 650 mg PO Q6H PRN PRN Reason: Headache/Pain Mild Scale (1-3) Last Admin: 05/05/21 23:28 Dose: 650 mg Documented by: Al Hydroxide/Mg Hydroxide (Magnesium Hydrox/Alum Hydrox 30 Ml Oral.Susp) 30 ml PO Q6H PRN PRN Reason: Heartburn/Nausea Albuterol Sulfate (Albuterol Sulfate 90 Mcg 8 Gm Inhaler) 2 puff INHALE Q4H PRN PRN Reason: Shortness of Breath Aripiprazole (Aripiprazole 30 Mg Tablet) 30 mg PO DAILY [facility] Last Admin: 05/06/21 08:59 Dose: Not Given Documented by: Aspirin (Aspirin 81 Mg Tab.Chew) 81 mg PO DAILY [facility] Last Admin: 05/06/21 08:55 Dose: Not Given Documented by: Atorvastatin Calcium (Atorvastatin Calcium 80 Mg Tablet) 80 mg PO BEDTIME [facility] Baclofen (Baclofen 10 Mg Tablet) 10 mg PO BID [facility] Last Admin: 05/06/21 08:55 Dose: Not Given Documented by: Benztropine Mesylate (Benztropine Mesylate 0.5 Mg Tablet) 0.5 mg PO BID [facility] Last Admin: 05/06/21 08:59 Dose: Not Given Documented by: Colchicine (Colchicine 0.6 Mg Tablet) 0.6 mg PO DAILY [facility] Last Admin: 05/06/21 08:55 Dose: Not Given Documented by: Diltiazem HCl (Diltiazem Hcl Cd 180 Mg Cap.Er.24h) 360 mg PO DAILY [facility]; Protocol Last Admin: 05/06/21 08:55 Dose: Not Given Documented by: Divalproex Sodium (Divalproex Sodium Er 500 Mg Tab.Er.24h) 1,000 mg PO BEDTIME [facility] Last Admin: 05/05/21 23:20 Dose: 1,000 mg Documented by: Divalproex Sodium (Divalproex Sodium Er 500 Mg Tab.Er.24h) 500 mg PO DAILY [facility] Last Admin: 05/06/21 08:58 Dose: Not Given Documented by: Famotidine (Famotidine 20 Mg Tablet) 10 mg PO DAILY [facility] Last Admin: 05/06/21 08:56 Dose: Not Given Documented by: Ferrous Sulfate (Ferrous Sulfate 324 Mg Tablet.Dr) 324 mg PO DAILY [facility] Last Admin: 05/06/21 08:56 Dose: Not Given Documented by: Fluticasone/Vilanterol (Fluticasone/Vilanterol 100/25 Blst.W.Dev) 1 puff INHALE DAILY [facility] Last Admin: 05/06/21 08:56 Dose: Not Given Documented by: Hydroxyzine HCl (Hydroxyzine Hcl 50 Mg Tablet) 50 mg PO TID PRN PRN Reason: Anxiety Lactulose (Lactulose 20 Gm/30 Ml Solution) 10 gm PO DAILY [facility] Last Admin: 05/06/21 08:56 Dose: Not Given Documented by: Levothyroxine Sodium (Levothyroxine Sodium 125 Mcg Tablet) 125 mcg PO DAILY@0600 [facility] Last Admin: 05/06/21 06:49 Dose: 125 mcg Documented by: Loperamide HCl (Loperamide Hcl 2 Mg Capsule) 2 mg PO Q6H PRN PRN Reason: Diarrhea Magnesium Hydroxide (Milk Of Magnesia 30 Ml Oral.Susp) 30 ml PO DAILY PRN PRN Reason: Constipation Metoprolol Succinate (Metoprolol Succinate Er 50 Mg Tab.Er.24h) 50 mg PO DAILY [facility]; Protocol Last Admin: 05/06/21 08:56 Dose: Not Given Documented by: Multivitamins/Vitamin C (Multivitamin Tablet) 1 tab PO DAILY [facility] Last Admin: 05/06/21 08:56 Dose: Not Given Documented by: Nicotine (Nicotine 14 Mg Patch.Td24) 14 mg TRANSDERMA DAILY [facility] Last Admin: 05/06/21 08:56 Dose: Not Given Documented by: Olanzapine (Olanzapine 10 Mg Tablet) 10 mg PO TID PRN PRN Reason: Agitation Olanzapine (Olanzapine 10 Mg Tablet) 10 mg PO BID [facility] Last Admin: 05/06/21 08:58 Dose: Not Given Documented by: Polyethylene Glycol (Polyethylene Glycol 3350 17 Gm Powd.Pack) 17 gm PO DAILY [facility] Last Admin: 05/06/21 08:56 Dose: Not Given Documented by: Prazosin HCl (Prazosin Hcl 1 Mg Capsule) 1 mg PO BID [facility]; Protocol Last Admin: 05/06/21 08:56 Dose: Not Given Documented by: Senna (Sennosides 8.6 Mg Tablet) 8.6 mg PO BID PRN PRN Reason: Constipation Sitagliptin Phosphate (Sitagliptin Phosphate 100 Mg Tablet) 100 mg PO DAILY [facility] Last Admin: 05/06/21 08:56 Dose: Not Given Documented by: Trazodone HCl (Trazodone Hcl 50 Mg Tablet) 50 mg PO BEDTIME PRN PRN Reason: Insomnia Trazodone HCl (Trazodone Hcl 50 Mg Tablet) 50 mg PO BEDTIME [facility] Last Admin: 05/05/21 23:19 Dose: 50 mg Documented by: Venlafaxine HCl (Venlafaxine Hcl Er 150 Mg Cap.Er.24h) 150 mg PO DAILY [facility] Last Admin: 05/06/21 08:58 Dose: Not Given Documented by: Allergies Allergies Allergy/AdvReac Type Severity Reaction Status Date / Time Penicillins Allergy Mild unkown Verified 11/24/19 23:09 Sulfa (Sulfonamide Allergy Mild unknown Verified 11/24/19 23:09 Antibiotics) Assessment & Plan Assessment & Plan (1) PTSD (post-traumatic stress disorder): Status: Acute Code(s): F43.10 - Post-traumatic stress disorder, unspecified (2) Borderline personality disorder: Status: Acute Code(s): F60.3 - Borderline personality disorder Plan continue home medications for now. keep hospitalization brief. discharge to intermediate once stabilized. I spent __15____ minutes with the patient and/or on the patient floor today, greater than?50% of which was spent counseling/coordinating care. Reason for contiued inpatient stay Substantial Risk for: inability to function and rapid decompensation
[2021-05-06] MEDS: Acetaminophen 325 MG TABLET 650 MG PO (15:24)
[2021-05-06] MEDS: OLANZapine 10 MG TABLET PO (16:43)
[2021-05-06 18:00] VITALS: RESP 16
[2021-05-06] MEDS: traZODone HCL 50 MG TABLET PO (22:47)
[2021-05-07 08:35] LABS: Glucose, Whole Blood 103 mg/dL (60-115)
--- NOTE | 2021-05-07 11:13 | PM.PSYDC ---
DS: Providers Provider Date of admission: 05/05/21 00:38 Primary care physician: Unknown Physician Consults: 05/05/21 10:58 Consult to Hospitalist Routine Consulting Provider: Hospitalist Reason For Exam: direct admission DS: Diagnosis Discharge Diagnosis (1) PTSD (post-traumatic stress disorder): Status: Acute (2) Borderline personality disorder: Status: Acute DS: Medications Discharge Medications Home Medications: Home Medications Medication Instructions Recorded Confirmed acetaminophen 500 mg tablet (Mapap 500 mg PO Q6H PRN 11/25/19 05/05/21 Extra Strength) aripiprazole 30 mg tablet (Abilify) 30 mg PO DAILY 11/25/19 05/05/21 divalproex 500 mg tablet,extended 500 mg PO DAILY 11/25/19 05/05/21 release 24 hr hydroxyzine pamoate 50 mg capsule 50 mg PO TID PRN 11/25/19 05/05/21 (Vistaril) metoprolol succinate 50 mg 50 mg PO BID 11/25/19 05/05/21 tablet,extended release 24 hr multivitamin (Daily-Lisa) 1 tab PO DAILY 11/25/19 05/05/21 olanzapine 5 mg tablet 10 mg PO TID PRN 11/25/19 05/05/21 sennosides 8.6 mg tablet (senna) 8.6 mg PO BID PRN 11/25/19 05/05/21 trazodone 50 mg tablet 50 mg PO BEDTIME 11/25/19 05/05/21 venlafaxine 75 mg capsule,extended 150 mg PO DAILY 11/25/19 05/05/21 release 24 hr albuterol sulfate 90 mcg/actuation 2 puff INHALATION Q4-6H 05/05/21 05/05/21 aerosol inhaler aspirin 81 mg chewable tablet 81 mg PO DAILY 05/05/21 05/05/21 atorvastatin 80 mg tablet 80 mg PO BEDTIME 05/05/21 05/05/21 baclofen 10 mg tablet 10 mg PO BID 05/05/21 05/05/21 benztropine 0.5 mg tablet 0.5 mg PO BID 05/05/21 05/05/21 budesonide-formoterol HFA 80 2 puff INHALATION BID 05/05/21 05/05/21 mcg-4.5 mcg/actuation aerosol inhaler (Symbicort) colchicine 0.6 mg tablet 0.6 mg PO BID 05/05/21 05/05/21 diltiazem HCl 360 mg capsule,24 360 mg PO DAILY 05/05/21 05/05/21 hr,extended release divalproex 500 mg tablet,extended 1,000 mg PO BEDTIME 05/05/21 05/05/21 release 24 hr famotidine 10 mg tablet 10 mg PO DAILY 05/05/21 05/05/21 ferrous sulfate 325 mg (65 mg 325 mg PO DAILY 05/05/21 05/05/21 iron) tablet lactulose 10 gram/15 mL (15 mL) 15 ml PO DAILY 05/05/21 05/05/21 oral solution levothyroxine 125 mcg tablet 125 mcg PO DAILY 05/05/21 05/05/21 loperamide 2 mg tablet 2 mg PO Q6H PRN 05/05/21 05/05/21 olanzapine 10 mg tablet 10 mg PO BID 05/05/21 05/05/21 polyethylene glycol 3350 17 gram 17 g PO DAILY 05/05/21 05/05/21 oral powder packet prazosin 1 mg capsule 1 mg PO BID 05/05/21 05/05/21 sitagliptin 100 mg tablet 100 mg PO DAILY 05/05/21 05/05/21 Previous Rx's Medication Instructions Recorded nicotine 14 mg/24 hr daily 1 patch TRANSDERMAL DAILY #28 ea 11/27/19 transdermal patch Data Data Completed and Pending Completed studies during hospitalization [Text1]: 05/05/21 05/06/21 05/06/21 10:51 08:04 08:30 Sodium 141 Potassium 4.4 Chloride 108 Carbon Dioxide 27 Anion Gap 10 L BUN 19 H Creatinine 0.89 Estim Creat Clear Calc 81.3 Estimated GFR > 60 POC Glucose 162 H 90 Fasting Glucose 88 Calcium 9.5 D Total Bilirubin 0.3 AST 10 ALT 9 Alkaline Phosphatase 78 D Total Protein 5.8 L Albumin 3.2 L Triglycerides 101 Cholesterol 145 LDL Cholesterol, Calc 90 HDL Cholesterol 35 05/07/21 08:30 Sodium Potassium Chloride Carbon Dioxide Anion Gap BUN Creatinine Estim Creat Clear Calc Estimated GFR POC Glucose 103 Fasting Glucose Calcium Total Bilirubin AST ALT Alkaline Phosphatase Total Protein Albumin Triglycerides Cholesterol LDL Cholesterol, Calc HDL Cholesterol DS: Summary Time Spent with Patient Time attestation: Total time spent providing and/or coordinating discharge services: Discharge Plan Discharge Patient Disposition: Home, Self-Care Discharge Diagnosis: Borderline Personality Disorder Referrals: Dr. Joel Zee (Psychiatry) [Other] - 1 Week (In Person Appointment) Darell Elizabeth PA [Physician Posting Clerk] - 05/13/21 3:20 pm () Discharge Medications: Continued multivitamin [Daily-Lisa] Tablet 1 tab PO DAILY 0RF trazodone 50 mg tablet 50 mg PO BEDTIME 0RF metoprolol succinate 50 mg tablet extended release 24 hr 50 mg PO BID 0RF olanzapine 5 mg tablet 10 mg PO TID PRN (Reason: Agitation) 0RF acetaminophen [Mapap Extra Strength] 500 mg tablet 500 mg PO Q6H PRN (Reason: pain) 0RF divalproex 500 mg tablet extended release 24 hr 500 mg PO DAILY 0RF sennosides [senna] 8.6 mg Tablet 8.6 mg PO BID PRN (Reason: Constipation) 0RF hydroxyzine pamoate [Vistaril] 50 mg Capsule 50 mg PO TID PRN (Reason: Anxiety) 0RF aripiprazole [Abilify] 30 mg Tablet 30 mg PO DAILY 0RF venlafaxine 75 mg Capsule,Extended Release 24hr 150 mg PO DAILY 0RF nicotine 14 mg/24 hr patch 24 hour 1 patch transdermal DAILY Qty: 28 0RF benztropine 0.5 mg Tablet 0.5 mg PO BID 0RF loperamide 2 mg Tablet 2 mg PO Q6H PRN (Reason: Diarrhea) 0RF ferrous sulfate 325 mg (65 mg iron) Tablet 325 mg PO DAILY 0RF levothyroxine 125 mcg Tablet 125 mcg PO DAILY 0RF albuterol sulfate 90 mcg/actuation Hfa Aerosol Inhaler 2 puff INHALATION Q4-6H 0RF colchicine 0.6 mg Tablet 0.6 mg PO BID 0RF sitagliptin 100 mg Tablet 100 mg PO DAILY 0RF budesonide-formoterol [Symbicort] 80-4.5 mcg/actuation Hfa Aerosol Inhaler 2 puff INHALATION BID 0RF famotidine 10 mg Tablet 10 mg PO DAILY 0RF aspirin 81 mg Tablet,Chewable 81 mg PO DAILY 0RF diltiazem HCl 360 mg Capsule,Extended Release 24 Hr 360 mg PO DAILY 0RF atorvastatin 80 mg Tablet 80 mg PO BEDTIME 0RF baclofen 10 mg Tablet 10 mg PO BID 0RF polyethylene glycol 3350 17 gram Powder In Packet 17 g PO DAILY 0RF prazosin 1 mg Capsule 1 mg PO BID 0RF olanzapine 10 mg Tablet 10 mg PO BID 0RF divalproex 500 mg Tablet Extended Release 24 Hr 1,000 mg PO BEDTIME 0RF lactulose 10 gram/15 mL (15 mL) Solution 15 ml PO DAILY 0RF Discharge Orders: Discharge Order (Routine); Ordered 05/07/21 Ordered By: Campos Brush Diet: advance to usual diet and diabetic diet Activity on Discharge: As tolerated Stand Alone Forms: Patient Portal Discharge page Care Plan Goals: remain safe and stable in the outpatient treatment setting Health Concerns: Diabetes Asthma Gout Cardiac Disease HTN Hyperlipidemia GERD Hypothyroidism Plan of Treatment: take medications as prescribed, attend appointments as scheduled Assessment: this patient's personality structure is such that her mood and behavior may be reactive and unpredictable in relation to life stressors and her environment. she is felt to be at baseline at the time of discharge and further psychiatric hospitalization will not improve her mental status.
[2021-05-07] MEDS: OLANZapine 10 MG TABLET PO ×2 (14:49→22:06)
--- NOTE | 2021-05-07 14:50 | HO.PSYCHPN ---
Subjective Subjective Date of Service: 05/07/21 Reason For Visit: Bipolar Interim History: pt seen in the morning for discharge. she states she wants to leave. informs her that that is the plan and that is what he is meeting with her to go over. she then says she wants to kill herself, that if she is discharged she will kill herself. CITLALI barrera joins the interview. pt proceeds to say she wants to discharge but she will kill herself if we allow her to. she states she does not want to return to the care home where she was, but that it is her only option. and CITLALI encourage pt to not kill herself but maintain discharge plan for the moment. later in the day pt throwing her chair against nursing station, yelling, saying we don't care if she dies, we're still discharging her. she is ultimately calmed by several staff and eats lunch. once again 30 minutes prior to the planned discharge time she has another episode of agitated yelling saying MD will lose his license bcse she will kill herself after she goes. continues to tell staff to discharge her and also that she will kill herself if we do. unable to have insight regarding her double-binding behavior. informs pt that despite her stating she would like to discharge from the hospital today, her behavior is communicating otherwise and therefore we will stop the discharge and revisit the issue monday. of note, CITLALI barrera later contacted this handbook writer and informed that [facility] will not be returning pt to prior care home but rather a different one. pt currently unaware. such a late change of plan not acceptable for discharge in any case. per staff, no groups. yesterday declined all morning meds. isolative. refused 1:1 contact. she stated to staff that she would not tell you how i really feel so i can leave tomorrow. took trazodone only at HS. denies SI/HI @ HS. refused meds this morning. POC 90 yesterday. Mental Status Exam Mental Status Exam Narrative: dressed in hospital attire. no PMA/PMR. not cooperative. speech variable in loudness, nml rate, nml amount, fnml prosody, decr latency. thoughts linear and illogical. affect constricted, hyper-intense, labile. mood angry/irritable. reporting SI. no SIBI/HI/AVH expressed. Diagnostics Vital Signs (24Hr): Vital Signs - 24 hr 05/06/21 18:00 Respiratory Rate 16 BMI result Body Mass Index 32.5 Labs Results: 05/06/21 08:04 Labs: Laboratory Results - last 48 hr 05/06/21 05/06/21 05/07/21 08:04 08:30 08:30 Sodium 141 Potassium 4.4 Chloride 108 Carbon Dioxide 27 Anion Gap 10 L BUN 19 H Creatinine 0.89 Estim Creat Clear Calc 81.3 Estimated GFR > 60 POC Glucose 90 103 Fasting Glucose 88 Calcium 9.5 D Total Bilirubin 0.3 AST 10 ALT 9 Alkaline Phosphatase 78 D Total Protein 5.8 L Albumin 3.2 L Triglycerides 101 Cholesterol 145 LDL Cholesterol, Calc 90 HDL Cholesterol 35 Medications Medications Current Medications Acetaminophen (Acetaminophen 325 Mg Tablet) 650 mg PO Q6H PRN PRN Reason: Headache/Pain Mild Scale (1-3) Last Admin: 05/06/21 15:24 Dose: 650 mg Documented by: Al Hydroxide/Mg Hydroxide (Magnesium Hydrox/Alum Hydrox 30 Ml Oral.Susp) 30 ml PO Q6H PRN PRN Reason: Heartburn/Nausea Albuterol Sulfate (Albuterol Sulfate 90 Mcg 8 Gm Inhaler) 2 puff INHALE Q4H PRN PRN Reason: Shortness of Breath Aripiprazole (Aripiprazole 30 Mg Tablet) 30 mg PO DAILY [facility] Last Admin: 05/07/21 08:42 Dose: Not Given Documented by: Aspirin (Aspirin 81 Mg Tab.Chew) 81 mg PO DAILY [facility] Last Admin: 05/07/21 08:42 Dose: Not Given Documented by: Atorvastatin Calcium (Atorvastatin Calcium 80 Mg Tablet) 80 mg PO BEDTIME [facility] Last Admin: 05/06/21 22:45 Dose: Not Given Documented by: Baclofen (Baclofen 10 Mg Tablet) 10 mg PO BID [facility] Last Admin: 05/07/21 08:42 Dose: Not Given Documented by: Benztropine Mesylate (Benztropine Mesylate 0.5 Mg Tablet) 0.5 mg PO BID [facility] Last Admin: 05/07/21 08:42 Dose: Not Given Documented by: Colchicine (Colchicine 0.6 Mg Tablet) 0.6 mg PO DAILY [facility] Last Admin: 05/07/21 08:42 Dose: Not Given Documented by: Diltiazem HCl (Diltiazem Hcl Cd 180 Mg Cap.Er.24h) 360 mg PO DAILY [facility]; Protocol Last Admin: 05/07/21 08:43 Dose: Not Given Documented by: Divalproex Sodium (Divalproex Sodium Er 500 Mg Tab.Er.24h) 1,000 mg PO BEDTIME [facility] Last Admin: 05/06/21 22:45 Dose: Not Given Documented by: Divalproex Sodium (Divalproex Sodium Er 500 Mg Tab.Er.24h) 500 mg PO DAILY [facility] Last Admin: 05/07/21 08:43 Dose: Not Given Documented by: Famotidine (Famotidine 20 Mg Tablet) 10 mg PO DAILY [facility] Last Admin: 05/07/21 08:43 Dose: Not Given Documented by: Ferrous Sulfate (Ferrous Sulfate 324 Mg Tablet.Dr) 324 mg PO DAILY [facility] Last Admin: 05/07/21 08:45 Dose: Not Given Documented by: Fluticasone/Vilanterol (Fluticasone/Vilanterol 100/25 Blst.W.Dev) 1 puff INHALE DAILY [facility] Last Admin: 05/07/21 08:45 Dose: Not Given Documented by: Hydroxyzine HCl (Hydroxyzine Hcl 50 Mg Tablet) 50 mg PO TID PRN PRN Reason: Anxiety Lactulose (Lactulose 20 Gm/30 Ml Solution) 10 gm PO DAILY [facility] Last Admin: 05/07/21 08:45 Dose: Not Given Documented by: Levothyroxine Sodium (Levothyroxine Sodium 125 Mcg Tablet) 125 mcg PO DAILY@0600 [facility] Last Admin: 05/07/21 08:42 Dose: Not Given Documented by: Loperamide HCl (Loperamide Hcl 2 Mg Capsule) 2 mg PO Q6H PRN PRN Reason: Diarrhea Magnesium Hydroxide (Milk Of Magnesia 30 Ml Oral.Susp) 30 ml PO DAILY PRN PRN Reason: Constipation Metoprolol Succinate (Metoprolol Succinate Er 50 Mg Tab.Er.24h) 50 mg PO DAILY [facility]; Protocol Last Admin: 05/07/21 08:45 Dose: Not Given Documented by: Multivitamins/Vitamin C (Multivitamin Tablet) 1 tab PO DAILY [facility] Last Admin: 05/07/21 08:45 Dose: Not Given Documented by: Nicotine (Nicotine 14 Mg Patch.Td24) 14 mg TRANSDERMA DAILY [facility] Last Admin: 05/07/21 08:45 Dose: Not Given Documented by: Olanzapine (Olanzapine 10 Mg Tablet) 10 mg PO TID PRN PRN Reason: Agitation Last Admin: 05/06/21 16:43 Dose: 10 mg Documented by: Olanzapine (Olanzapine 10 Mg Tablet) 10 mg PO BID [facility] Last Admin: 05/07/21 08:46 Dose: Not Given Documented by: Polyethylene Glycol (Polyethylene Glycol 3350 17 Gm Powd.Pack) 17 gm PO DAILY [facility] Last Admin: 05/07/21 08:46 Dose: Not Given Documented by: Prazosin HCl (Prazosin Hcl 1 Mg Capsule) 1 mg PO BID [facility]; Protocol Last Admin: 05/07/21 08:46 Dose: Not Given Documented by: Senna (Sennosides 8.6 Mg Tablet) 8.6 mg PO BID PRN PRN Reason: Constipation Sitagliptin Phosphate (Sitagliptin Phosphate 100 Mg Tablet) 100 mg PO DAILY [facility] Last Admin: 05/07/21 08:46 Dose: Not Given Documented by: Trazodone HCl (Trazodone Hcl 50 Mg Tablet) 50 mg PO BEDTIME PRN PRN Reason: Insomnia Trazodone HCl (Trazodone Hcl 50 Mg Tablet) 50 mg PO BEDTIME [facility] Last Admin: 05/06/21 22:47 Dose: 50 mg Documented by: Venlafaxine HCl (Venlafaxine Hcl Er 150 Mg Cap.Er.24h) 150 mg PO DAILY [facility] Last Admin: 05/07/21 08:46 Dose: Not Given Documented by: Allergies Allergies Allergy/AdvReac Type Severity Reaction Status Date / Time Penicillins Allergy Mild unkown Verified 11/24/19 23:09 Sulfa (Sulfonamide Allergy Mild unknown Verified 11/24/19 23:09 Antibiotics) Assessment & Plan Assessment & Plan (1) PTSD (post-traumatic stress disorder): Status: Acute Code(s): F43.10 - Post-traumatic stress disorder, unspecified (2) Borderline personality disorder: Status: Acute Code(s): F60.3 - Borderline personality disorder Plan continue home medications for now. keep hospitalization brief. discharge to care home once stabilized. I spent ___60___ minutes with the patient and/or on the patient floor today, greater than?50% of which was spent counseling/coordinating care. Reason for contiued inpatient stay Substantial Risk for: harm to self, inability to function and rapid decompensation
[2021-05-07] MEDS: Acetaminophen 325 MG TABLET 650 MG PO (15:54)
[2021-05-07] MEDS: Divalproex Sodium ER 500 MG TAB.ER.24H 1000 MG PO (22:06)
[2021-05-07] MEDS: traZODone HCL 50 MG TABLET PO (22:07)
[2021-05-07] MEDS: Benztropine Mesylate 0.5 MG TABLET PO (22:07)
[2021-05-07] MEDS: Prazosin HCL 1 MG CAPSULE PO (22:09)
[2021-05-07 22:12] VITALS: BP 172/83; PULSE 80; RESP 16; O2SAT 98
[2021-05-08 09:36] LABS: Glucose, Whole Blood 136 mg/dL (60-115)
--- NOTE | 2021-05-08 10:57 | P.PNPSI_ITS ---
Subjective Subjective Date of Service: 05/08/21 Reason For Visit: Bipolar Interim History: Patient was seen and discussed in rounds today. She continues to be very angry and demanding to leave even though yesterday she had stated that she would ?kill? herself if discharged. Her discharge which was planned for yesterday was descended. She also is demanding to get her belongings, specially cellphone. All her belongings are in quarantine and double backed because of bedbugs. She has been refusing care and medications. Eating adequately. No dangerous behaviors. A lot of anger and screaming pertaining to not getting herself on. No changes were made today Mental Status Exam Mental Status Exam Narrative: In today's visit she is alert, very angry and uncooperative. She repeatedly asked about herself on and when I tried to explain to her the reasons she told me to, ?go to hell?. She does express suicidal ideations but no dangerous behaviors reported. No acute signs of psychosis. Judgment is impaired Diagnostics Vital Signs (24Hr): Vital Signs - 24 hr 05/07/21 22:12 Pulse Rate 80 Respiratory Rate 16 Blood Pressure 172/83 H Pulse Oximetry 98 BMI result Body Mass Index 32.5 Labs Results: 05/06/21 08:04 Labs: Laboratory Results - last 48 hr 05/07/21 05/08/21 08:30 09:32 POC Glucose 103 136 H Medications Medications Current Medications Acetaminophen (Acetaminophen 325 Mg Tablet) 650 mg PO Q6H PRN PRN Reason: Headache/Pain Mild Scale (1-3) Last Admin: 05/07/21 15:54 Dose: 650 mg Documented by: Al Hydroxide/Mg Hydroxide (Magnesium Hydrox/Alum Hydrox 30 Ml Oral.Susp) 30 ml PO Q6H PRN PRN Reason: Heartburn/Nausea Albuterol Sulfate (Albuterol Sulfate 90 Mcg 8 Gm Inhaler) 2 puff INHALE Q4H PRN PRN Reason: Shortness of Breath Aripiprazole (Aripiprazole 30 Mg Tablet) 30 mg PO DAILY [facility] Last Admin: 05/07/21 08:42 Dose: Not Given Documented by: Aspirin (Aspirin 81 Mg Tab.Chew) 81 mg PO DAILY [facility] Last Admin: 05/07/21 08:42 Dose: Not Given Documented by: Atorvastatin Calcium (Atorvastatin Calcium 80 Mg Tablet) 80 mg PO BEDTIME [facility] Last Admin: 05/08/21 02:02 Dose: Not Given Documented by: Baclofen (Baclofen 10 Mg Tablet) 10 mg PO BID [facility] Last Admin: 05/08/21 02:03 Dose: Not Given Documented by: Benztropine Mesylate (Benztropine Mesylate 0.5 Mg Tablet) 0.5 mg PO BID [facility] Last Admin: 05/07/21 22:07 Dose: 0.5 mg Documented by: Colchicine (Colchicine 0.6 Mg Tablet) 0.6 mg PO DAILY [facility] Last Admin: 05/07/21 08:42 Dose: Not Given Documented by: Diltiazem HCl (Diltiazem Hcl Cd 180 Mg Cap.Er.24h) 360 mg PO DAILY [facility]; Protocol Last Admin: 05/07/21 08:43 Dose: Not Given Documented by: Divalproex Sodium (Divalproex Sodium Er 500 Mg Tab.Er.24h) 1,000 mg PO BEDTIME [facility] Last Admin: 05/07/21 22:06 Dose: 1,000 mg Documented by: Divalproex Sodium (Divalproex Sodium Er 500 Mg Tab.Er.24h) 500 mg PO DAILY [facility] Last Admin: 05/07/21 08:43 Dose: Not Given Documented by: Famotidine (Famotidine 20 Mg Tablet) 10 mg PO DAILY [facility] Last Admin: 05/07/21 08:43 Dose: Not Given Documented by: Ferrous Sulfate (Ferrous Sulfate 324 Mg Tablet.Dr) 324 mg PO DAILY [facility] Last Admin: 05/07/21 08:45 Dose: Not Given Documented by: Fluticasone/Vilanterol (Fluticasone/Vilanterol 100/25 Blst.W.Dev) 1 puff INHALE DAILY [facility] Last Admin: 05/07/21 08:45 Dose: Not Given Documented by: Hydroxyzine HCl (Hydroxyzine Hcl 50 Mg Tablet) 50 mg PO TID PRN PRN Reason: Anxiety Lactulose (Lactulose 20 Gm/30 Ml Solution) 10 gm PO DAILY [facility] Last Admin: 05/07/21 08:45 Dose: Not Given Documented by: Levothyroxine Sodium (Levothyroxine Sodium 125 Mcg Tablet) 125 mcg PO DAILY@0600 [facility] Last Admin: 05/07/21 08:42 Dose: Not Given Documented by: Loperamide HCl (Loperamide Hcl 2 Mg Capsule) 2 mg PO Q6H PRN PRN Reason: Diarrhea Magnesium Hydroxide (Milk Of Magnesia 30 Ml Oral.Susp) 30 ml PO DAILY PRN PRN Reason: Constipation Metoprolol Succinate (Metoprolol Succinate Er 50 Mg Tab.Er.24h) 50 mg PO DAILY [facility]; Protocol Last Admin: 05/07/21 08:45 Dose: Not Given Documented by: Multivitamins/Vitamin C (Multivitamin Tablet) 1 tab PO DAILY [facility] Last Admin: 05/07/21 08:45 Dose: Not Given Documented by: Nicotine (Nicotine 14 Mg Patch.Td24) 14 mg TRANSDERMA DAILY [facility] Last Admin: 05/07/21 08:45 Dose: Not Given Documented by: Olanzapine (Olanzapine 10 Mg Tablet) 10 mg PO TID PRN PRN Reason: Agitation Last Admin: 05/07/21 14:49 Dose: 10 mg Documented by: Olanzapine (Olanzapine 10 Mg Tablet) 10 mg PO BID [facility] Last Admin: 05/07/21 22:06 Dose: 10 mg Documented by: Polyethylene Glycol (Polyethylene Glycol 3350 17 Gm Powd.Pack) 17 gm PO DAILY [facility] Last Admin: 05/07/21 08:46 Dose: Not Given Documented by: Prazosin HCl (Prazosin Hcl 1 Mg Capsule) 1 mg PO BID [facility]; Protocol Last Admin: 05/07/21 22:09 Dose: 1 mg Documented by: Senna (Sennosides 8.6 Mg Tablet) 8.6 mg PO BID PRN PRN Reason: Constipation Sitagliptin Phosphate (Sitagliptin Phosphate 100 Mg Tablet) 100 mg PO DAILY [facility] Last Admin: 05/07/21 08:46 Dose: Not Given Documented by: Trazodone HCl (Trazodone Hcl 50 Mg Tablet) 50 mg PO BEDTIME PRN PRN Reason: Insomnia Trazodone HCl (Trazodone Hcl 50 Mg Tablet) 50 mg PO BEDTIME [facility] Last Admin: 05/07/21 22:07 Dose: 50 mg Documented by: Venlafaxine HCl (Venlafaxine Hcl Er 150 Mg Cap.Er.24h) 150 mg PO DAILY [facility] Last Admin: 05/07/21 08:46 Dose: Not Given Documented by: Allergies Allergies Allergy/AdvReac Type Severity Reaction Status Date / Time Penicillins Allergy Mild unkown Verified 11/24/19 23:09 Sulfa (Sulfonamide Allergy Mild unknown Verified 11/24/19 23:09 Antibiotics) Assessment & Plan Assessment & Plan (1) PTSD (post-traumatic stress disorder): Status: Acute Code(s): F43.10 - Post-traumatic stress disorder, unspecified (2) Borderline personality disorder: Status: Acute Code(s): F60.3 - Borderline personality disorder Plan continue home medications for now. keep hospitalization brief. discharge to correction once stabilized. 05/08/2021 continue current regimen and try to explain to her the circumstances which has not been easy. I spent minutes with the patient and/or on the patient floor today, greater than?50% of which was spent counseling/coordinating care. Reason for contiued inpatient stay Substantial Risk for: harm to self and med/psych decompensation
[2021-05-08] MEDS: OLANZapine 10 MG VIAL IM (15:00)
[2021-05-08] MEDS: LORazepam 2 MG/ML VIAL IM (15:00)
[2021-05-08 16:03] VITALS: BP 137/65; PULSE 93; RESP 16; TEMP 36.3; O2SAT 97
--- NOTE | 2021-05-08 17:04 | PC.NURSE ---
This morning patient refused vital signs and medications. Throughout the morning patient made comments about planning to kill herself. She was refusing to walk with her walker, I hope I fall and hit my head and . During 5 min checks she was found standing on her bed hitting her head on the wall. I will kill myself here. You can't stop me. Patient was assisted to the seated position on her bed by staff and security. She declined prn medications, quiet space, art, attempts to assist her to cope were met with negativity and resistance.Patient was placed on 1:1 for safety at 1247pm. Patient made pleas to retrieve her phone and kelby from quarantine. She agreed to remain safe while I attempted to assist her. Infection control was contacted and electronics were removed from quarantine and disinfected. Phone was not found. Eklby and chargers retrieved. Patient refused them That's not what I want. I have no home. I can't start over again. I'd rather . Patient then began hitting her head and aggressively scratching her skin. She was not redirectable and required hold by staff to remain safe. Dr Miramontes was on unit and ordered medication and physical restraint. IM medication offered with hold only and patient refused. Patient required security assist to 4 point chair restraint. She made continuous attempts to remove her arms from restraint. At 1500 ATivan 2mg given IM in right deltoid and Zyprexa 10mg given IM in left deltoid. Restraint chair was moved to the anteroom where patient continued to struggle at restraints until 1528 when she fell asleep. She was removed from restraint at 1530 and assisted in to her bed with 1:1 for safety. Vital signs remained stable throughout. Patient was offered food, fluids, toileting per policy. At present she is resting comfortably in bed.
[2021-05-08] MEDS: OLANZapine 10 MG TABLET PO (23:22)
[2021-05-08] MEDS: Benztropine Mesylate 0.5 MG TABLET PO (23:22)
[2021-05-08] MEDS: Divalproex Sodium ER 500 MG TAB.ER.24H 1000 MG PO (23:22)
[2021-05-08] MEDS: traZODone HCL 50 MG TABLET PO (23:23)
[2021-05-08 23:28] VITALS: RESP 17
--- NOTE | 2021-05-09 10:24 | HO.PSYCHPN ---
Subjective Subjective Date of Service: 05/09/21 Reason For Visit: Bipolar Subjective Notes: Conditional Voluntary Interim History: Patient was seen and discussed in rounds today. She continues to be upset over not being able to get her belongings, specially her cellphone because of her belongings being in quarantine because of bedbugs. She has been very sleepy today, refusing meds and point of care. She was more pleasant yesterday in spite of not getting her phone back. Was eating and sleeping adequately. This morning she continues to be on one-to-one observation and was drowsy and refused to interact or communicate Review of Systems Review of Systems Yes Unobtainable due to mental status Mental Status Exam Mental Status Exam Narrative: In today's visit she refused to respond or communicate. She was sitting in a chair slumped and has a one-to-one level of observation. Diagnostics Vital Signs (24Hr): Vital Signs - 24 hr 05/08/21 16:03 05/08/21 23:28 Temperature 97.4 F Pulse Rate 93 Respiratory Rate 16 17 Blood Pressure 137/65 Pulse Oximetry 97 BMI result Body Mass Index 32.5 Labs Results: 05/06/21 08:04 Labs: Laboratory Results - last 48 hr 05/08/21 09:32 POC Glucose 136 H Medications Medications Current Medications Acetaminophen (Acetaminophen 325 Mg Tablet) 650 mg PO Q6H PRN PRN Reason: Headache/Pain Mild Scale (1-3) Last Admin: 05/07/21 15:54 Dose: 650 mg Documented by: Al Hydroxide/Mg Hydroxide (Magnesium Hydrox/Alum Hydrox 30 Ml Oral.Susp) 30 ml PO Q6H PRN PRN Reason: Heartburn/Nausea Albuterol Sulfate (Albuterol Sulfate 90 Mcg 8 Gm Inhaler) 2 puff INHALE Q4H PRN PRN Reason: Shortness of Breath Aripiprazole (Aripiprazole 30 Mg Tablet) 30 mg PO DAILY [facility] Last Admin: 05/09/21 09:13 Dose: Not Given Documented by: Aspirin (Aspirin 81 Mg Tab.Chew) 81 mg PO DAILY [facility] Last Admin: 05/09/21 09:13 Dose: Not Given Documented by: Atorvastatin Calcium (Atorvastatin Calcium 80 Mg Tablet) 80 mg PO BEDTIME [facility] Last Admin: 05/08/21 23:27 Dose: Not Given Documented by: Baclofen (Baclofen 10 Mg Tablet) 10 mg PO BID [facility] Last Admin: 05/09/21 09:13 Dose: Not Given Documented by: Benztropine Mesylate (Benztropine Mesylate 0.5 Mg Tablet) 0.5 mg PO BID [facility] Last Admin: 05/09/21 09:13 Dose: Not Given Documented by: Colchicine (Colchicine 0.6 Mg Tablet) 0.6 mg PO DAILY [facility] Last Admin: 05/09/21 09:14 Dose: Not Given Documented by: Diltiazem HCl (Diltiazem Hcl Cd 180 Mg Cap.Er.24h) 360 mg PO DAILY [facility]; Protocol Last Admin: 05/09/21 09:14 Dose: Not Given Documented by: Divalproex Sodium (Divalproex Sodium Er 500 Mg Tab.Er.24h) 1,000 mg PO BEDTIME [facility] Last Admin: 05/08/21 23:22 Dose: 1,000 mg Documented by: Divalproex Sodium (Divalproex Sodium Er 500 Mg Tab.Er.24h) 500 mg PO DAILY [facility] Last Admin: 05/09/21 09:14 Dose: Not Given Documented by: Famotidine (Famotidine 20 Mg Tablet) 10 mg PO DAILY [facility] Last Admin: 05/09/21 09:14 Dose: Not Given Documented by: Ferrous Sulfate (Ferrous Sulfate 324 Mg Tablet.Dr) 324 mg PO DAILY [facility] Last Admin: 05/09/21 09:14 Dose: Not Given Documented by: Fluticasone/Vilanterol (Fluticasone/Vilanterol 100/25 Blst.W.Dev) 1 puff INHALE DAILY [facility] Last Admin: 05/09/21 09:14 Dose: Not Given Documented by: Hydroxyzine HCl (Hydroxyzine Hcl 50 Mg Tablet) 50 mg PO TID PRN PRN Reason: Anxiety Lactulose (Lactulose 20 Gm/30 Ml Solution) 10 gm PO DAILY [facility] Last Admin: 05/09/21 09:14 Dose: Not Given Documented by: Levothyroxine Sodium (Levothyroxine Sodium 125 Mcg Tablet) 125 mcg PO DAILY@0600 [facility] Last Admin: 05/09/21 09:13 Dose: Not Given Documented by: Loperamide HCl (Loperamide Hcl 2 Mg Capsule) 2 mg PO Q6H PRN PRN Reason: Diarrhea Magnesium Hydroxide (Milk Of Magnesia 30 Ml Oral.Susp) 30 ml PO DAILY PRN PRN Reason: Constipation Metoprolol Succinate (Metoprolol Succinate Er 50 Mg Tab.Er.24h) 50 mg PO DAILY [facility]; Protocol Last Admin: 05/09/21 09:14 Dose: Not Given Documented by: Multivitamins/Vitamin C (Multivitamin Tablet) 1 tab PO DAILY [facility] Last Admin: 05/09/21 09:14 Dose: Not Given Documented by: Nicotine (Nicotine 14 Mg Patch.Td24) 14 mg TRANSDERMA DAILY [facility] Last Admin: 05/09/21 09:15 Dose: Not Given Documented by: Olanzapine (Olanzapine 10 Mg Tablet) 10 mg PO TID PRN PRN Reason: Agitation Last Admin: 05/07/21 14:49 Dose: 10 mg Documented by: Olanzapine (Olanzapine 10 Mg Tablet) 10 mg PO BID [facility] Last Admin: 05/09/21 09:18 Dose: Not Given Documented by: Polyethylene Glycol (Polyethylene Glycol 3350 17 Gm Powd.Pack) 17 gm PO DAILY [facility] Last Admin: 05/09/21 09:18 Dose: Not Given Documented by: Prazosin HCl (Prazosin Hcl 1 Mg Capsule) 1 mg PO BID [facility]; Protocol Last Admin: 05/09/21 09:18 Dose: Not Given Documented by: Senna (Sennosides 8.6 Mg Tablet) 8.6 mg PO BID PRN PRN Reason: Constipation Sitagliptin Phosphate (Sitagliptin Phosphate 100 Mg Tablet) 100 mg PO DAILY [facility] Last Admin: 05/09/21 09:18 Dose: Not Given Documented by: Trazodone HCl (Trazodone Hcl 50 Mg Tablet) 50 mg PO BEDTIME PRN PRN Reason: Insomnia Trazodone HCl (Trazodone Hcl 50 Mg Tablet) 50 mg PO BEDTIME [facility] Last Admin: 05/08/21 23:23 Dose: 50 mg Documented by: Venlafaxine HCl (Venlafaxine Hcl Er 150 Mg Cap.Er.24h) 150 mg PO DAILY [facility] Last Admin: 05/09/21 09:18 Dose: Not Given Documented by: Allergies Allergies Allergy/AdvReac Type Severity Reaction Status Date / Time Penicillins Allergy Mild unkown Verified 11/24/19 23:09 Sulfa (Sulfonamide Allergy Mild unknown Verified 11/24/19 23:09 Antibiotics) Assessment & Plan Assessment & Plan (1) PTSD (post-traumatic stress disorder): Status: Acute Code(s): F43.10 - Post-traumatic stress disorder, unspecified (2) Borderline personality disorder: Status: Acute Code(s): F60.3 - Borderline personality disorder Plan continue home medications for now. keep hospitalization brief. discharge to nursing home once stabilized. 05/08/2021 continue current regimen and try to explain to her the circumstances which has not been easy. 05/09/2021 continue current regimen and plans. No changes were implemented today I spent minutes with the patient and/or on the patient floor today, greater than?50% of which was spent counseling/coordinating care. Reason for contiued inpatient stay Substantial Risk for: harm to self
[2021-05-09] MEDS: LORazepam 2 MG/ML VIAL IM ×2 (11:00→16:28)
[2021-05-09] MEDS: OLANZapine 10 MG VIAL IM (11:00)
--- NOTE | 2021-05-09 11:13 | PM.EVENT ---
Event Note Date of Service: 05/09/21 Event Note: This morning she became more stirred up, started to pick at the wound on her wrist and refused all her 20 morning medications.. Out of concern for her safety and current mental status she was given Ativan 2 mg and Zyprexa 10 mg IM with security involved. We did not put her in a chair restrained because she was able to get out of it yesterday and was essentially being held for 30 minutes by security. She was moderately resistant to being held, stating ?let me , I am a DNR?. Her vital signs were within normal range. She is alert and talking.
[2021-05-09 11:44] VITALS: BP 153/79; PULSE 99; RESP 16; TEMP 36.4; O2SAT 99
--- NOTE | 2021-05-09 16:08 | PM.EVENT ---
Event Note Date of Service: 05/09/21 Event Note: Pt seen for physical/chemical restraint. Appears in NAD, VS normal, lungs clear, no resp distress, CV RRR no m/r/g, restricted affect.
[2021-05-09 18:00] VITALS: BP 130/60; PULSE 104; RESP 18; TEMP 36.8; O2SAT 95
[2021-05-09 18:06] LABS: Glucose, Whole Blood 121 mg/dL (60-115)
--- NOTE | 2021-05-09 19:28 | PC.NURSE ---
Pt. was in the kitchen and became upset because the kitchen staff refused to bring her macaroni and cheese after telling her that they would. Pt. began to yell and threaten to hurt herself. She then went into her bedroom with her 1:1 and attempted to throw herself off of the bed to attempt self harm. She was laying 1/2 on 1/2 off of her bed and then very easily unscrewed the bolts from her bed and put one into her mouth. Staff was able to get it out of her mouth, however, at this time, we decided to do a mechanical restraint. This incident started at approximately 1500 and the mechanical restraint started at 1705 Before restraint was applied, staff attempted to redirect patient several times. They offered her art, sensory room, tv, reading, walking, and medication. Patient refused all offers. After patient was placed into restraint chair, she continued to state that she was not going to be safe if we let her out. Chemical restraint was provided with Thorazine 100mg and Ativan 2mg at approximately 1820. Pt was taken out of the chair and placed prone on the bed in order to be give the Thorazine in her gluteus kenya. Ativan given while patient was still in restraint chair. After patient had received both IM injections, she lay quietly on the bed for approximately 30 minutes on her side. She then was able to get up safely and walk to the kitchen for dinner. Patient ate her dinner and is currently safely sitting with her 1:1 operator command support systems.
--- NOTE | 2021-05-09 21:14 | PC.NURSE ---
Prion to 1100am today Ariadna was sitting in the day room on 1:1 when she was noted attempting to reopen left wrist wound with a plastic object. The object was removed. She then attempted to open left wrist wound with her own fingernails. She did not respond to verbal redirection. She declined offers of alternative activities, prn medications, move to quiet area, offers of food, drink and declined to discuss her feelings except to yell, Just let me . I have nothing to live for. She was increasingly agitated and at 1055 she was attempting to bang head on table. Patient was placed in physical hold at 1100 by security and unit staff. Medication restraint Ativan 2mg IM admin in right deltoid, zyprexa 10mg IM administered in left deltoid. She continues to thrash and threaten to kill herself on the unit for the duration of the 30 minute hold. At 11:30 she was placed in restraint chair for her own safety. She continued to thrash and threaten suicdie on the unit until 1150am when she fell asleep. She was removed from mechanical restraint at that time.
[2021-05-09] MEDS: traZODone HCL 50 MG TABLET PO (21:43)
[2021-05-09] MEDS: OLANZapine 10 MG TABLET PO (21:43)
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
== END 2021-05-10 11:45 | disposition home or self-care (01) | DRG 885 ==
PROVIDERS: Psychiatry & Neurology Psychiatry; Admitting Provider Psychiatry & Neurology Psychiatry; Visit Provider Psychiatry & Neurology Psychiatry
DX: F31.9 Bipolar disorder, unspecified (principal); R45.851 Suicidal ideations; I13.0 Hypertensive heart and chronic kidney disease with heart failure and stage 1 through stage 4 chronic kidney disease, or unspecified chronic kidney disease; I50.32 Chronic diastolic (congestive) heart failure; F43.10 Post-traumatic stress disorder, unspecified; F60.1 Schizoid personality disorder; I25.10 Atherosclerotic heart disease of native coronary artery without angina pectoris; E11.22 Type 2 diabetes mellitus with diabetic chronic kidney disease; I48.91 Unspecified atrial fibrillation; Z91.52 Personal history of nonsuicidal self-harm; N18.9 Chronic kidney disease, unspecified; Z87.891 Personal history of nicotine dependence; Z88.0 Allergy status to penicillin; Z88.2 Allergy status to sulfonamides; Z79.82 Long term (current) use of aspirin; Z79.890 Hormone replacement therapy; Z79.899 Other long term (current) drug therapy
CPT/HCPCS: 36415; 80053; 80061; 82947; 97161; J2060; J3230

== ENCOUNTER 2021-06-10 17:57 | Inpatient (IN) | payer OTHER, SELFPAY ==
--- NOTE | ~2021-06-10 | XR_ITS ---
EXAMINATION: XR CHEST CLINICAL INFORMATION: Shortness of breath COMPARISON: CT chest and plain radiographs from November, TECHNIQUE: AP portable upright view of the chest was obtained. FINDINGS: Chronic nonspecific increase in predominantly Central reticular lung markings. Favor minor chronic bronchial wall thickening. No focal pneumonia. No large effusion or pneumothorax. Grossly stable heart and mediastinum; patient rotated to right. Nonobstructive gas pattern. XR/XR chest 1V IMPRESSION: No acute disease. Chronic increase in lung markings likely a bronchial wall thickening.
[2021-06-10 18:23] VITALS: BP 124/78; PULSE 78; O2SAT 99
[2021-06-10 18:27] VITALS: BP 164/63; PULSE 61; RESP 18; TEMP 36.5; O2SAT 94; BMI 41.9
--- NOTE | 2021-06-10 19:00 | ED.GENADULT ---
HPI - General Adult General Chief complaint: Psychiatric Symptoms Stated complaint: SI/HI SECTION 12 Time Seen by Provider: 06/10/21 18:08 Source: patient, EMS and RN notes reviewed Mode of arrival: EMS Limitations: no limitations History of Present Illness HPI narrative: This is a 55-year-old female past medical history significant for CHF, DM, HTN, bipolar disorder, borderline personality disorder, schizophrenia presenting to the emergency department with complaints of suicidal ideation with plan to overdose. According to EMS and patient patient called [facility] and mention to them that she was suicidal and wanted to overdose on Benadryl. She is currently living at a hotel because she is homeless. She reports increasing life stressors. [facility] reached out to and and called an ambulance. Patient was brought in on a Section 12. She tells me she was suicidal, she tells me she has been feeling this way for a while. She denies homicidal ideation. She denies visual, auditory and tactile hallucinations. She denies drugs alcohol and tobacco. She tells me that she has no medical complaints however she does mention to me that she has gained 30 lb in the past 3 weeks. She tells me that this is an estimate however she is not certain. She tells me she has a history of CHF and she is on Lasix she has been taking all her medications as prescribed. She reports some shortness of breath at night however she does not report any shortness of breath, chest pain, fevers, chills, nausea, vomiting, abdominal pain, headaches, dizziness, vision changes. She tells me she sees a therapist and a psychiatrist and she is followed by them regularly. Onset (ago): unknown Relieving factors: none Exacerbating factors: none Associated symptoms: other (Weight gain) Treatments prior to arrival: none Related Data Home Medications Medication Instructions Recorded Confirmed aripiprazole 30 mg tablet (Abilify) 30 mg PO DAILY 11/25/19 06/10/21 divalproex 500 mg tablet,extended 500 mg PO DAILY 11/25/19 06/10/21 release 24 hr hydroxyzine pamoate 50 mg capsule 50 mg PO TID PRN 11/25/19 06/10/21 (Vistaril) metoprolol succinate 50 mg 50 mg PO BID 11/25/19 06/10/21 tablet,extended release 24 hr multivitamin (Daily-Lisa) 1 tab PO DAILY 11/25/19 06/10/21 trazodone 50 mg tablet 50 mg PO BEDTIME 11/25/19 06/10/21 albuterol sulfate 90 mcg/actuation 2 puff INHALATION Q4H 05/05/21 06/10/21 aerosol inhaler aspirin 81 mg chewable tablet 81 mg PO DAILY 05/05/21 06/10/21 atorvastatin 80 mg tablet 80 mg PO BEDTIME 05/05/21 06/10/21 baclofen 10 mg tablet 10 mg PO BID 05/05/21 06/10/21 benztropine 0.5 mg tablet 0.5 mg PO BID 05/05/21 06/10/21 budesonide-formoterol HFA 80 2 puff INHALATION BID 05/05/21 06/10/21 mcg-4.5 mcg/actuation aerosol inhaler (Symbicort) colchicine 0.6 mg tablet 0.6 mg PO BID 05/05/21 06/10/21 diltiazem HCl 360 mg capsule,24 360 mg PO DAILY 05/05/21 06/10/21 hr,extended release divalproex 500 mg tablet,extended 1,000 mg PO BEDTIME 05/05/21 06/10/21 release 24 hr famotidine 10 mg tablet 10 mg PO BID PRN 05/05/21 06/10/21 ferrous sulfate 325 mg (65 mg 325 mg PO DAILY 05/05/21 06/10/21 iron) tablet lactulose 10 gram/15 mL (15 mL) 15 ml PO DAILY 05/05/21 06/10/21 oral solution levothyroxine 125 mcg tablet 125 mcg PO DAILY 05/05/21 06/10/21 loperamide 2 mg tablet 2 mg PO Q6H PRN 05/05/21 06/10/21 olanzapine 10 mg tablet 10 mg PO TID PRN 05/05/21 06/10/21 polyethylene glycol 3350 17 gram 17 g PO DAILY 05/05/21 06/10/21 oral powder packet prazosin 1 mg capsule 1 mg PO BID 05/05/21 06/10/21 sitagliptin 100 mg tablet 100 mg PO DAILY 05/05/21 06/10/21 clotrimazole-betamethasone 1 1 applic TOPICAL BID 06/10/21 06/10/21 %-0.05 % topical cream furosemide 40 mg tablet 1 tab PO DAILY 06/10/21 06/10/21 nicotine 21 mg/24 hr daily 1 patch TOPICAL DAILY 06/10/21 06/10/21 transdermal patch sennosides 8.6 mg-docusate sodium 1 tab PO DAILY PRN 06/10/21 06/10/21 50 mg tablet (Senna Plus) venlafaxine 150 mg 1 cap PO DAILY 06/10/21 06/10/21 capsule,extended release 24 hr Previous Rx's Medication Instructions Recorded nitrofurantoin 100 mg PO Q12H 5 Days #10 cap 06/10/21 monohydrate/macrocrystals 100 mg capsule (Macrobid) Allergies Allergy/AdvReac Type Severity Reaction Status Date / Time Penicillins Allergy Mild unkown Verified 11/24/19 23:09 Sulfa (Sulfonamide Allergy Mild unknown Verified 11/24/19 23:09 Antibiotics) Review of Systems Review of Systems: Constitutional : No Weight loss, No Fever, No Chills, No Fatigue, No Malaise, + weight gain ENT/Mouth : No sore throat, No Rhinorrhea Eyes: No Eye Pain, No Swelling, No Redness Cardiovascular : No Chest Pain, No SOB, No Dyspnea on Exertion, No Orthopnea, No Edema, No Palpitations Respiratory : No Cough, No Sputum, No Wheezing Gastrointestinal : No Nausea, No Vomiting, No Diarrhea, No Constipation, No abdominal Pain, No Hematochezia, No Melena Genitourinary : No Dysuria, No Urinary Frequency, No Hematuria, Musculoskeletal : No joint pain, No Myalgias, No Joint Swelling Skin : No Skin Lesions, No rash Neuro : No Weakness, No Numbness, No Dizziness, No Headache Psych : No Anxiety/Panic, + Depression, + SI All other systems reviewed and are negative Yes all other systems are reviewed and are negative [facility] Past Medical History Attestation statement: The following information was validated with the patient. Source: old records reviewed and nursing notes reviewed Medical History Bipolar 1 disorder Diabetes HTN (hypertension) Kidney disease Social History Social History Household Members Other:: 3 other people live in jail Housing: Other Housing Other:: intermediate Alcohol intake: never Patient Tobacco Use Status: Former Tobacco user Cigarette Packs Per Day: 0.5 Cigarettes Per Day: 10.0 Advance Directives: Yes Advance Directives on File: Yes Advance Directives Date on File: 11/25/19 Patient : No service: No Sexual orientation: UNKNOWN Physical Exam ED Vital Signs: Vital Signs - 24 hr 06/10/21 18:27 06/10/21 20:38 Temperature 97.7 F 96.8 F Pulse Rate 61 63 Respiratory Rate 18 19 Blood Pressure 164/63 H 136/71 Pulse Oximetry 94 94 BMI result Body Mass Index 41.9 Vital signs stable. Appearance: Alert.? Oriented X3.? No acute distress.? Patient withdrawn. Head: Normocephalic, atraumatic, no step-offs or deformities Eyes: Pupils equal, round and reactive to light.? ENT: Pharynx normal.? Neck: Normal inspection.? Neck supple.? CVS: Normal heart rate and rhythm.? Pulses normal.? Respiratory: No respiratory distress.? Breath sounds normal.? Abdomen: Soft and nontender.? Skin: Skin warm and dry.? Normal skin color.? Normal skin turgor.? Extremities:2+ pitting edema to b/l lower extemities. No calf ttp. 5/5 strength to bilateral upper and lower extremities Back: No midline tenderness, no C-spine tenderness, full range of motion, no CVA tenderness bilaterally Neuro: Oriented X 3.? No motor deficit.? No sensory deficit. CN 2-12 intact Course Reevaluation(s) Reevaluation #1: Patient's CBC appears to be around her baseline. Chemistry with no acute electrolyte abnormalities requiring intervention. BNP elevated 622 she will be given 40 mg of IV Lasix. Salicylates, acetaminophen normal. Ethanol negative. Pending UA, MIRANDA. Time: 21:29 Reevaluation #2: Patient saturating well on room air although her BNP was elevated she does have a history of this, she was given Lasix and she also takes p.o. Lasix, patient is not the best historian it is likely that she has not been taking her medications as prescribed. Patient ambulated from her room to the bathroom with no issues, she is not complaining of chest pain, palpitations or shortness of breath. She is saturating 96% on room air. No crackles on exam. Urine toxicology negative. Urine with 2+ leukocyte esterases. Patient will be treated for UTI At this time patient will be placed into physician observation to allow more time to be evaluated by the behavioral health team. At time observation was started patient common cooperative no acute distress. Will continue to monitor. Time: 21:57 Medical Decision Making [facility] Narrative Medical decision making narrative: 1824 55 yo f presents with suicidal ideation with plan to overdose on Benadryl. She also reports increased weight around 30 lb over the past 3 weeks. She does have a history of CHF and she is currently reports intermittent shortness of breath at night however she does not have shortness of breath or chest pain at this time. Physical examination significant for a withdrawn affect, she does have 2+ pitting edema to bilateral lower extremities, regular rate and rhythm, neuro nonfocal, abdomen soft nontender nondistended. Plan at this time is medical clearance Medical Records Medical records reviewed: Yes I reviewed the patient's medical records. Lab Data Lab results reviewed: Yes I reviewed the patient's lab results. Result diagrams: 06/10/21 18:59 06/10/21 18:59 Labs: Lab Results 06/10/21 06/10/21 06/10/21 Range/Units 18:30 18:59 18:59 WBC 5.8 (4.8-10.8) X10*3/uL RBC 3.74 L (4.20-5.50) X10*6/uL Hgb 9.9 L (12.0-16.0) g/dl Hct 31.7 L (37.0-47.0) % MCV 84.8 (80.0-98.0) fL MCH 26.5 L (27.0-33.0) pg MCHC 31.2 (31.0-35.0) g/dl RDW 19.1 H (11.0-16.0) % Plt Count 150 L (160-400) X10*3/uL MPV Not Reportable Immature Gran % (Auto) 0.5 H (0.0-0.4) % Neut % (Auto) 39.2 L (45-73) % Lymph % (Auto) 41.4 H (20-40) % [place] % (Auto) 12.2 H (2-11) % Eos % (Auto) 4.3 H (0-4) % Baso % (Auto) 2.4 H (0-2) % Lymph # (Auto) 2.4 (1.2-4.9) X10*3/uL [place] # (Auto) 0.7 (0.1-1.2) X10*3/uL Eos # (Auto) 0.3 (0.0-0.4) X10*3/uL Baso # (Auto) 0.1 (0.0-0.2) X10*3/uL Abs Immat Gran (auto) 0.03 (0.00-0.03) X10*3/uL Absolute Neuts (auto) 2.3 (2.0-8.3) x10*3/uL Absolute Nucleated RBC 0.000 (0.0-0.012) X10*3/uL Nucleated RBC % (auto) 0.0 (0.0-0.2) /100WBC Sodium 142 (135-145) mmol/L Potassium 3.7 (3.3-5.1) mmol/L Chloride 103 (96-108) mmol/L Carbon Dioxide 31 H (22-29) mmol/L Anion Gap 12 (12-20) BUN 20 H (9-16) mg/dL Creatinine 1.01 (0.5-1.4) mg/dL Estim Creat Clear Calc 84.2 Estimated GFR 57 Random Glucose 99 (60-115) mg/dL Calcium 9.7 (8.4-10.2) mg/dL Magnesium 1.9 (1.6-2.6) mg/dL Total Bilirubin 0.6 (0.0-1.0) mg/dL AST 13 (5-31) U/L ALT 9 (0-31) U/L Alkaline Phosphatase 102 D (39-117) U/L B-Natriuretic Peptide (<100) pg/mL Total Protein 7.1 D (6.5-8.0) g/dL Albumin 4.0 D (3.5-5.0) g/dL Urine Color Urine Appearance Urine pH (5.0-8.0) Ur Specific Chadron (1.005-1.025) Urine Protein (NEG-TRACE) MG/DL Urine Glucose (UA) (NEG) MG/DL Urine Ketones (NEG) MG/DL Urine Blood (NEG) Urine Nitrite (NEG) Ur Leukocyte Esterase (NEG) Urine RBC (0) /HPF Urine WBC (0-4) /HPF Ur Squamous Epith Cells /LPF Urine Bacteria /LPF Salicylates (15-30) mg/dL Urine Opiates Screen (Not Detect) Urine Fentanyl Screen (Not Detect) Acetaminophen (<30) mcg/mL Ur Barbiturates Screen (Not Detect) Ur Phencyclidine Scrn (Not Detect) Ur Amphetamines Screen (Not Detect) U Benzodiazepines Scrn (Not Detect) Urine Cocaine Screen (Not Detect) U Marijuana (THC) Screen (Not Detect) Ethyl Alcohol mg/dL COVID-19 (IDANIA) Negative (Negative) COVID-19 Clin Com See Note 06/10/21 06/10/21 06/10/21 Range/Units 18:59 18:59 18:59 WBC (4.8-10.8) X10*3/uL RBC (4.20-5.50) X10*6/uL Hgb (12.0-16.0) g/dl Hct (37.0-47.0) % MCV (80.0-98.0) fL MCH (27.0-33.0) pg MCHC (31.0-35.0) g/dl RDW (11.0-16.0) % Plt Count (160-400) X10*3/uL MPV Immature Gran % (Auto) (0.0-0.4) % Neut % (Auto) (45-73) % Lymph % (Auto) (20-40) % [place] % (Auto) (2-11) % Eos % (Auto) (0-4) % Baso % (Auto) (0-2) % Lymph # (Auto) (1.2-4.9) X10*3/uL [place] # (Auto) (0.1-1.2) X10*3/uL Eos # (Auto) (0.0-0.4) X10*3/uL Baso # (Auto) (0.0-0.2) X10*3/uL Abs Immat Gran (auto) (0.00-0.03) X10*3/uL Absolute Neuts (auto) (2.0-8.3) x10*3/uL Absolute Nucleated RBC (0.0-0.012) X10*3/uL Nucleated RBC % (auto) (0.0-0.2) /100WBC Sodium (135-145) mmol/L Potassium (3.3-5.1) mmol/L Chloride (96-108) mmol/L Carbon Dioxide (22-29) mmol/L Anion Gap (12-20) BUN (9-16) mg/dL Creatinine (0.5-1.4) mg/dL Estim Creat Clear Calc Estimated GFR Random Glucose (60-115) mg/dL Calcium (8.4-10.2) mg/dL Magnesium (1.6-2.6) mg/dL Total Bilirubin (0.0-1.0) mg/dL AST (5-31) U/L ALT (0-31) U/L Alkaline Phosphatase (39-117) U/L B-Natriuretic Peptide 622 H (<100) pg/mL Total Protein (6.5-8.0) g/dL Albumin (3.5-5.0) g/dL Urine Color Urine Appearance Urine pH (5.0-8.0) Ur Specific Chadron (1.005-1.025) Urine Protein (NEG-TRACE) MG/DL Urine Glucose (UA) (NEG) MG/DL Urine Ketones (NEG) MG/DL Urine Blood (NEG) Urine Nitrite (NEG) Ur Leukocyte Esterase (NEG) Urine RBC (0) /HPF Urine WBC (0-4) /HPF Ur Squamous Epith Cells /LPF Urine Bacteria /LPF Salicylates < 5.0 L (15-30) mg/dL Urine Opiates Screen (Not Detect) Urine Fentanyl Screen (Not Detect) Acetaminophen 7 (<30) mcg/mL Ur Barbiturates Screen (Not Detect) Ur Phencyclidine Scrn (Not Detect) Ur Amphetamines Screen (Not Detect) U Benzodiazepines Scrn (Not Detect) Urine Cocaine Screen (Not Detect) U Marijuana (THC) Screen (Not Detect) Ethyl Alcohol < 10 mg/dL COVID-19 (IDANIA) (Negative) COVID-19 Clin Com 06/10/21 06/10/21 Range/Units 21:47 21:47 WBC (4.8-10.8) X10*3/uL RBC (4.20-5.50) X10*6/uL Hgb (12.0-16.0) g/dl Hct (37.0-47.0) % MCV (80.0-98.0) fL MCH (27.0-33.0) pg MCHC (31.0-35.0) g/dl RDW (11.0-16.0) % Plt Count (160-400) X10*3/uL MPV Immature Gran % (Auto) (0.0-0.4) % Neut % (Auto) (45-73) % Lymph % (Auto) (20-40) % [place] % (Auto) (2-11) % Eos % (Auto) (0-4) % Baso % (Auto) (0-2) % Lymph # (Auto) (1.2-4.9) X10*3/uL [place] # (Auto) (0.1-1.2) X10*3/uL Eos # (Auto) (0.0-0.4) X10*3/uL Baso # (Auto) (0.0-0.2) X10*3/uL Abs Immat Gran (auto) (0.00-0.03) X10*3/uL Absolute Neuts (auto) (2.0-8.3) x10*3/uL Absolute Nucleated RBC (0.0-0.012) X10*3/uL Nucleated RBC % (auto) (0.0-0.2) /100WBC Sodium (135-145) mmol/L Potassium (3.3-5.1) mmol/L Chloride (96-108) mmol/L Carbon Dioxide (22-29) mmol/L Anion Gap (12-20) BUN (9-16) mg/dL Creatinine (0.5-1.4) mg/dL Estim Creat Clear Calc Estimated GFR Random Glucose (60-115) mg/dL Calcium (8.4-10.2) mg/dL Magnesium (1.6-2.6) mg/dL Total Bilirubin (0.0-1.0) mg/dL AST (5-31) U/L ALT (0-31) U/L Alkaline Phosphatase (39-117) U/L B-Natriuretic Peptide (<100) pg/mL Total Protein (6.5-8.0) g/dL Albumin (3.5-5.0) g/dL Urine Color YELLOW Urine Appearance HAZY Urine pH 6.5 (5.0-8.0) Ur Specific [place] 1.010 (1.005-1.025) Urine Protein NEG (NEG-TRACE) MG/DL Urine Glucose (UA) NEG (NEG) MG/DL Urine Ketones NEG (NEG) MG/DL Urine Blood NEG (NEG) Urine Nitrite NEG (NEG) Ur Leukocyte Esterase 2+ H (NEG) Urine RBC 0 (0) /HPF Urine WBC 15-29 H (0-4) /HPF Ur Squamous Epith Cells 1+ /LPF Urine Bacteria 1+ /LPF Salicylates (15-30) mg/dL Urine Opiates Screen Not Detected (Not Detect) Urine Fentanyl Screen Not Detected (Not Detect) Acetaminophen (<30) mcg/mL Ur Barbiturates Screen Not Detected (Not Detect) Ur Phencyclidine Scrn Not Detected (Not Detect) Ur Amphetamines Screen Not Detected (Not Detect) U Benzodiazepines Scrn Not Detected (Not Detect) Urine Cocaine Screen Not Detected (Not Detect) U Marijuana (THC) Screen Not Detected (Not Detect) Ethyl Alcohol mg/dL COVID-19 (IDANIA) (Negative) COVID-19 Clin Com Critical Care Time Critical Care Time Critical Care Time: No Discharge Plan Discharge Clinical Impression: Borderline personality disorder, Depression, Elevated brain natriuretic peptide (BNP) level, Urinary tract infection Patient Disposition: Still a Patient Additional Instructions: Patient has a UTI unsure she gets discharged home with Macrobid. Prescriptions: New nitrofurantoin monohyd/m-cryst [Macrobid] 100 mg capsule 100 mg PO Q12H 5 Days Qty: 10 0RF Rx Instructions: must administer with a meal/food No Action multivitamin [Daily-Lisa] Tablet 1 tab PO DAILY 0RF trazodone 50 mg tablet 50 mg PO BEDTIME 0RF metoprolol succinate 50 mg tablet extended release 24 hr 50 mg PO BID 0RF divalproex 500 mg tablet extended release 24 hr 500 mg PO DAILY 0RF hydroxyzine pamoate [Vistaril] 50 mg Capsule 50 mg PO TID PRN (Reason: Anxiety) 0RF aripiprazole [Abilify] 30 mg Tablet 30 mg PO DAILY 0RF benztropine 0.5 mg Tablet 0.5 mg PO BID 0RF loperamide 2 mg Tablet 2 mg PO Q6H PRN (Reason: Diarrhea) 0RF ferrous sulfate 325 mg (65 mg iron) Tablet 325 mg PO DAILY 0RF levothyroxine 125 mcg Tablet 125 mcg PO DAILY 0RF albuterol sulfate 90 mcg/actuation Hfa Aerosol Inhaler 2 puff INHALATION Q4H 0RF colchicine 0.6 mg Tablet 0.6 mg PO BID 0RF sitagliptin 100 mg Tablet 100 mg PO DAILY 0RF budesonide-formoterol [Symbicort] 80-4.5 mcg/actuation Hfa Aerosol Inhaler 2 puff INHALATION BID 0RF famotidine 10 mg Tablet 10 mg PO BID PRN (Reason: Indigestion) 0RF aspirin 81 mg Tablet,Chewable 81 mg PO DAILY 0RF diltiazem HCl 360 mg Capsule,Extended Release 24 Hr 360 mg PO DAILY 0RF atorvastatin 80 mg Tablet 80 mg PO BEDTIME 0RF baclofen 10 mg Tablet 10 mg PO BID 0RF polyethylene glycol 3350 17 gram Powder In Packet 17 g PO DAILY 0RF prazosin 1 mg Capsule 1 mg PO BID 0RF olanzapine 10 mg Tablet 10 mg PO TID PRN (Reason: Agitation) 0RF divalproex 500 mg Tablet Extended Release 24 Hr 1,000 mg PO BEDTIME 0RF lactulose 10 gram/15 mL (15 mL) Solution 15 ml PO DAILY 0RF furosemide 40 mg tablet 1 tab PO DAILY 0RF sennosides-docusate sodium [Senna Plus] 8.6-50 mg tablet 1 tab PO DAILY PRN (Reason: constipation) 0RF venlafaxine 150 mg capsule,extended release 24hr 1 cap PO DAILY 0RF clotrimazole-betamethasone 1-0.05 % cream 1 applic topical BID 0RF nicotine 21 mg/24 hr patch 24 hour 1 patch topical DAILY 0RF Referrals: Darell Elizabeth PA [Primary Care Provider] - 2 days
[2021-06-10 19:05] LABS: COVID-19 Test Negative (Negative)
[2021-06-10 19:09] LABS: Basophils Absolute Auto 0.1 X10*3/uL (0.0-0.2); Basophils Percent Auto 2.4 % (0-2); Hemoglobin 9.9 g/dl (12.0-16.0); Imm Gran Abs Auto 0.03 X10*3/uL (0.00-0.03); Imm Gran Pct Auto 0.5 % (0.0-0.4); SCAN SMEAR FLAG 1
[2021-06-10 19:11] LABS: Eosinophils Absolute Auto 0.3 X10*3/uL (0.0-0.4); Eosinophils Percent Auto 4.3 % (0-4); Hematocrit 31.7 % (37.0-47.0); Lymphocytes Absolute Auto 2.4 X10*3/uL (1.2-4.9); Lymphocytes Percent Auto 41.4 % (20-40); Mean Corpuscular HGB Conc 31.2 g/dl (31.0-35.0); Mean Corpuscular Hemoglobin 26.5 pg (27.0-33.0); Mean Corpuscular Volume 84.8 fL (80.0-98.0); Monocytes Absolute Auto 0.7 X10*3/uL (0.1-1.2); Monocytes Percent Auto 12.2 % (2-11); Neutrophils Absolute Auto 2.3 x10*3/uL (2.0-8.3); Neutrophils Percent Auto 39.2 % (45-73); Platelet Count 150 X10*3/uL (160-400); Red Blood Count 3.74 X10*6/uL (4.20-5.50); Red Cell Distribution Width 19.1 % (11.0-16.0); White Blood Count 5.8 X10*3/uL (4.8-10.8)
[2021-06-10 19:12] LABS: PLT ABN DIST 1
[2021-06-10 19:13] LABS: MANUAL DIFF FLAG NO
[2021-06-10 19:31] LABS: Ethanol < 10 mg/dL
[2021-06-10 19:33] LABS: Acetaminophen LAB 7 mcg/mL (<30); Salicylate < 5.0 mg/dL (15-30)
[2021-06-10 19:34] LABS: Alanine Aminotransferase 9 U/L (0-31); Alkaline Phosphatase 102 U/L (39-117); Anion Gap 12 (12-20); Aspartate Amino Transferase 13 U/L (5-31); Bilirubin Total 0.6 mg/dL (0.0-1.0); Blood Urea Nitrogen 20 mg/dL (9-16); Calcium 9.7 mg/dL (8.4-10.2); Carbon Dioxide 31 mmol/L (22-29); Chloride 103 mmol/L (96-108); Creatinine Clr Calc Pharmacy 84.2; Estimated Glomerular Filt Rate 57; Glucose Random 99 mg/dL (60-115); Magnesium 1.9 mg/dL (1.6-2.6); Potassium 3.7 mmol/L (3.3-5.1); Sodium 142 mmol/L (135-145); Total Protein 7.1 g/dL (6.5-8.0)
[2021-06-10 19:41] LABS: B Type Natriuretic Peptide 622 pg/mL (<100)
--- NOTE | 2021-06-10 20:35 | PHA.MEDREC ---
Pharmacy Consult ? Medication Reconciliation Pharmacy has completed the medication reconciliation. Pt stated that she has a home visiting nurse that comes twice a day, but could not provide me with contact info. She also stated that she doesn't know what they are but there are a lot of them regarding her medications. I went by the claim history from April to May of 2021 and crosschecked with her discharge paperwork from 05/10/21.
[2021-06-10 20:38] VITALS: BP 136/71; PULSE 63; RESP 19; TEMP 36; O2SAT 94
[2021-06-10] MEDS: Furosemide 40 MG/4 ML VIAL IVPUSH (20:51)
--- NOTE | 2021-06-10 21:55 | PC.NURSE ---
pt ambulated to BR using walker to void with standby contact guard [employer]. steady gait. no c/o pain. sleeping at this time
[2021-06-10 21:58] LABS: Appearance Urine HAZY; Color Urine YELLOW; Glucose Urine UA NEG (NEG); Leukocyte Esterase Urine 2+ (NEG); Nitrite Urine NEG (NEG); PH 6.5 (5.0-8.0); UACC Culture Trigger YES; Urine Blood NEG (NEG); Urine Ketones NEG (NEG); Urine Protein NEG (NEG-TRACE)
[2021-06-10 22:06] LABS: Bacteria Urine 1+ /LPF; RBC Urine 0 /HPF (0); Squamous Epithelial Cell Urine 1+ /LPF
[2021-06-10 22:10] LABS: Amphetamine Screen Urine Not Detected (Not Detect); Barbiturates, Urine Not Detected (Not Detect); Benzodiazepines Screen Urine Not Detected (Not Detect); Cannabinoid Screen Urine Not Detected (Not Detect); Cocaine Screen Urine Not Detected (Not Detect); Fentanyl, urine Not Detected (Not Detect); Opiate Screen Urine Not Detected (Not Detect); Phencyclidine Screen Urine Not Detected (Not Detect)
[2021-06-10] MEDS: Nitrofurantoin Monohyd/M-Cryst 100 MG CAPSULE PO (23:24)
--- NOTE | 2021-06-11 | ECG_ITS ---
Test Reason : PSYCH MEDS Blood Pressure : / mmHG Vent. Rate : 074 BPM Atrial Rate : 074 BPM P-R Int : 200 ms QRS Dur : 086 ms QT Int : 424 ms P-R-T Axes : 042 034 151 degrees QTc Int : 470 ms Normal sinus rhythm ST & T wave abnormality, consider lateral ischemia Prolonged QT Abnormal ECG When compared with ECG of 24-NOV-2019 22:49, No significant change was found Referred By: Contreras Adorno Electronically Signed By:LURDES ARVIZU MD
[2021-06-11 01:27] VITALS: BP 149/74; PULSE 64; RESP 12; TEMP 36.6; O2SAT 96
[2021-06-11] MEDS: Levothyroxine Sodium 125 MCG TABLET PO (05:55)
[2021-06-11] MEDS: Albuterol Sulfate 90 MCG 8 GM INHALER 2 PUFF INHALE ×5 (05:55→21:51)
--- NOTE | 2021-06-11 06:15 | PC.NURSE ---
Patient slept through the night, no distress observed/reported, ambulates with walker independently, medication compliant, patient had incontinence episode which according to patient happens whenever she is stressed, incontinence support provided, BHN assessed the patient, patient engaged, disposition is RICHY f/u in the morning, BP 174/83 at 0600, will continue to monitor.
[2021-06-11 06:23] VITALS: BP 174/83; PULSE 109; RESP 16; TEMP 36.8; O2SAT 98
[2021-06-11 08:49] VITALS: BP 171/61; PULSE 73; RESP 16; TEMP 36.3; O2SAT 95
[2021-06-11] MEDS: ARIPiprazole 30 MG TABLET PO (09:58)
[2021-06-11] MEDS: Colchicine 0.6 MG TABLET PO (09:58)
[2021-06-11] MEDS: Venlafaxine HCl ER 150 MG CAP.ER.24H PO (09:59)
[2021-06-11] MEDS: Furosemide 40 MG TABLET PO (09:59)
[2021-06-11] MEDS: Multivitamin TABLET 1 TAB PO (09:59)
[2021-06-11] MEDS: SITagliptin Phosphate 100 MG TABLET PO (09:59)
[2021-06-11] MEDS: Nitrofurantoin Monohyd/M-Cryst 100 MG CAPSULE PO ×2 (10:00→22:02)
[2021-06-11] MEDS: Aspirin 81 MG TAB.CHEW PO (10:00)
[2021-06-11] MEDS: Ferrous Sulfate 324 MG TABLET.DR PO (10:00)
[2021-06-11] MEDS: Divalproex Sodium ER 500 MG TAB.ER.24H PO (10:00)
[2021-06-11] MEDS: Prazosin HCL 1 MG CAPSULE PO ×2 (10:00→21:51)
[2021-06-11] MEDS: dilTIAZem HCL CD 180 MG CAP.ER.24H 360 MG PO (10:00)
[2021-06-11] MEDS: Baclofen 10 MG TABLET PO ×2 (10:01→21:50)
[2021-06-11] MEDS: Metoprolol Succinate ER 50 MG TAB.ER.24H PO ×2 (10:01→21:50)
[2021-06-11] MEDS: Benztropine Mesylate 0.5 MG TABLET PO ×2 (10:01→21:51)
[2021-06-11] MEDS: Nicotine 21 MG PATCH.TD24 TRANSDERMA (10:02)
--- NOTE | 2021-06-11 14:17 | PC.NURSE ---
Patient very upset regarding belongings that were left at the [facility] in [place] due to seeking crisis. Patient requests to be discharged stating I can't take this anymore and I will act out . This RN called [facility] who reports that the motel agreed to hold belongings for 30 days and that the motel will not allow someone else to cone picker patient's belongings, as it is their policy. Upon relaying this message to the patient, she became very agitated and said If you don't let me leave, I'm going to find a way to kill myself . Patient now on 1:1 checks, charge authorizer aware.
[2021-06-11] MEDS: Divalproex Sodium ER 500 MG TAB.ER.24H 1000 MG PO (21:50)
[2021-06-11] MEDS: Atorvastatin Calcium 80 MG TABLET PO (21:50)
[2021-06-11] MEDS: traZODone HCL 50 MG TABLET PO (21:50)
[2021-06-11] MEDS: OLANZapine 10 MG TABLET PO (21:51)
[2021-06-11 21:57] VITALS: BP 169/64; PULSE 73
[2021-06-11 22:34] VITALS: BP 153/71; PULSE 65; RESP 16; TEMP 35.8; O2SAT 99; BMI 34.6
--- NOTE | 2021-06-11 23:13 | PC.ADMIT ---
Pt is a 55 year old female admitted on CV for inpatient level of care after endorsed suicide with a plan to OD on prescription meds or Benadryl. Pt is alert and oriented X3, VSS, Ambulates with a walker. Covid negative, Tox screen negative. Pt reports she was kicked out of her [facility] due to an attempt to commit suicide by trying to jump out of a moving van. Pt currently lives in a motel. Speech is clear with normal tone and rhythm. Pt has poor eye contact, flat affect, and anxious mood.Pt states she is homeless and will need help getting a place to live after discharge. Impaired insight, judgment and impulse. Pt endorsed depression, denies all psych symptoms at this time. States she will let staff know if SI occurs. Admission orders obtained.
[2021-06-12 08:02] LABS: Cholesterol 132 mg/dL; HDL Cholesterol 41 mg/dL; LDL Cholesterol Calculated 75 mg/dl; Magnesium 1.9 mg/dL (1.6-2.6); Triglycerides 82 mg/dL
[2021-06-12 08:06] LABS: Estimated Average Glucose 103 mg/dL; Hemoglobin A1c % 5.2 %
[2021-06-12 08:16] LABS: Free T4 (Free Thyroxine) 1.07 ng/dL (0.71-1.85); Thyroid Stimulating Hormone 2.16 uIU/mL (0.32-4.0)
[2021-06-12] MEDS: Nicotine 21 MG PATCH.TD24 TRANSDERMA (08:25)
[2021-06-12] MEDS: Fluticasone/Vilanterol 100/25 BLST.W.DEV 1 PUFF INHALE (08:25)
[2021-06-12] MEDS: Venlafaxine HCl ER 150 MG CAP.ER.24H PO (08:26)
[2021-06-12] MEDS: dilTIAZem HCL CD 180 MG CAP.ER.24H 360 MG PO (08:26)
[2021-06-12] MEDS: Benztropine Mesylate 0.5 MG TABLET PO ×2 (08:26→21:13)
[2021-06-12] MEDS: Furosemide 40 MG TABLET PO (08:27)
[2021-06-12] MEDS: Baclofen 10 MG TABLET PO ×2 (08:27→21:14)
[2021-06-12] MEDS: Ferrous Sulfate 324 MG TABLET.DR PO (08:27)
[2021-06-12] MEDS: SITagliptin Phosphate 100 MG TABLET PO (08:27)
[2021-06-12] MEDS: ARIPiprazole 30 MG TABLET PO (08:27)
[2021-06-12] MEDS: Multivitamin TABLET 1 TAB PO (08:27)
[2021-06-12] MEDS: Aspirin 81 MG TAB.CHEW PO (08:27)
[2021-06-12] MEDS: Metoprolol Succinate ER 50 MG TAB.ER.24H PO ×2 (08:28→21:14)
[2021-06-12] MEDS: Colchicine 0.6 MG TABLET PO ×2 (08:28→21:14)
[2021-06-12] MEDS: Nitrofurantoin Monohyd/M-Cryst 100 MG CAPSULE PO ×2 (08:28→21:14)
[2021-06-12] MEDS: Prazosin HCL 1 MG CAPSULE PO ×2 (08:28→21:14)
[2021-06-12] MEDS: Levothyroxine Sodium 125 MCG TABLET PO (08:28)
[2021-06-12] MEDS: Divalproex Sodium ER 500 MG TAB.ER.24H PO (08:39)
[2021-06-12 08:50] VITALS: BP 174/77; PULSE 64; RESP 16; O2SAT 98
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
[2021-06-12] MEDS: Nystatin/Triamcinolone Cream 15 GM TUBE 1 APPL TOPICAL ×2 (08:56→21:16)
[2021-06-12 18:00] VITALS: BP 128/83; PULSE 100; RESP 18; TEMP 36.5; O2SAT 98
[2021-06-12] MEDS: Albuterol Sulfate 90 MCG 8 GM INHALER 2 PUFF INHALE ×2 (19:18→21:16)
[2021-06-12] MEDS: traZODone HCL 50 MG TABLET PO (21:13)
[2021-06-12] MEDS: Divalproex Sodium ER 500 MG TAB.ER.24H 1000 MG PO (21:14)
[2021-06-12] MEDS: Atorvastatin Calcium 80 MG TABLET PO (21:14)
[2021-06-12 21:15] VITALS: BP 133/63; PULSE 72; RESP 16; TEMP 36.3; O2SAT 98
--- NOTE | 2021-06-13 05:51 | P.PNPSI_ITS ---
Subjective Subjective Date of Service: 06/13/21 Reason For Visit: Si, depression Subjective Notes: Conditional Voluntary Interim History: 06/13: Ariadna is contrite today. Worried about being homeless. Wants to work with the team. We discussed DBT and healthy coping. Pleased loss of water weight. No SOB/CP. UTI + on Macrobid Medication Compliance: Yes Review of Systems Review of Systems Constitutional : No Weight loss, No Fever, No Chills, No Fatigue, No Malaise, + weight gain ENT/Mouth : No sore throat, No Rhinorrhea Eyes: No Eye Pain, No Swelling, No Redness Cardiovascular : No Chest Pain, No SOB, No Dyspnea on Exertion, No Orthopnea, No Edema, No Palpitations Respiratory : No Cough, No Sputum, No Wheezing Gastrointestinal : No Nausea, No Vomiting, No Diarrhea, No Constipation, No abdominal Pain, No Hematochezia, No Melena Genitourinary : No Dysuria, No Urinary Frequency, No Hematuria, Musculoskeletal : No joint pain, No Myalgias, No Joint Swelling Skin : No Skin Lesions, No rash Neuro : No Weakness, No Numbness, No Dizziness, No Headache Psych : No Anxiety/Panic, + Depression, + SI All other systems reviewed and are negative Yes all other systems are reviewed and are negative Cardiovascular: Reports dyspnea Respiratory: Reports dyspnea Musculoskeletal: Reports no additional musculoskeletal complaints Skin/Breast: Reports system reviewed and no additional complaints, except as docu Psychiatric: Reports depression and Reports anhedonia Mental Status Exam Mental Status Exam Patient Appearance: Disheveled Patient Orientation: Person, Place, Time and Situation Level of Consciousness: Awake Patient Behavior: Anxious and Good Eye Contact Mood Description: Sad and Nervous Ability to Follow Directions: Excellent Speech Pattern: Clear Memory Description: Intact Diagnostics Vital Signs (24Hr): Vital Signs - 24 hr 06/12/21 08:50 06/12/21 18:00 06/12/21 21:15 Temperature 97.7 F 97.3 F Pulse Rate 64 100 72 Respiratory Rate 16 18 16 Blood Pressure 174/77 H 128/83 133/63 Pulse Oximetry 98 98 98 BMI result Body Mass Index 34.6 Labs Results: 06/10/21 18:59 06/10/21 18:59 Labs: Laboratory Results - last 48 hr 06/12/21 06/12/21 07:17 07:17 Estimat Average Glucose 103 Hemoglobin A1c % 5.2 Magnesium 1.9 Triglycerides 82 Cholesterol 132 LDL Cholesterol, Calc 75 HDL Cholesterol 41 TSH 2.16 Free T4 1.07 Imaging Radiology Impressions: ITS Impressions Chest X-Ray 06/10/21 18:43 IMPRESSION: No acute disease. Chronic increase in lung markings likely a bronchial wall thickening. Medications Medications Current Medications Acetaminophen (Acetaminophen 325 Mg Tablet) 650 mg PO Q6H PRN PRN Reason: Headache/Pain Mild Scale (1-3) Al Hydroxide/Mg Hydroxide (Magnesium Hydrox/Alum Hydrox 30 Ml Oral.Susp) 30 ml PO Q6H PRN PRN Reason: Heartburn/Nausea Albuterol Sulfate (Albuterol Sulfate 90 Mcg 8 Gm Inhaler) 2 puff INHALE Q4H [facility] Last Admin: 06/13/21 02:17 Dose: Not Given Documented by: Aripiprazole (Aripiprazole 30 Mg Tablet) 30 mg PO DAILY [facility] Last Admin: 06/12/21 08:27 Dose: 30 mg Documented by: Aspirin (Aspirin 81 Mg Tab.Chew) 81 mg PO DAILY [facility] Last Admin: 06/12/21 08:27 Dose: 81 mg Documented by: Atorvastatin Calcium (Atorvastatin Calcium 80 Mg Tablet) 80 mg PO BEDTIME [facility] Last Admin: 06/12/21 21:14 Dose: 80 mg Documented by: Baclofen (Baclofen 10 Mg Tablet) 10 mg PO BID [facility] Last Admin: 06/12/21 21:14 Dose: 10 mg Documented by: Benztropine Mesylate (Benztropine Mesylate 0.5 Mg Tablet) 0.5 mg PO BID [facility] Last Admin: 06/12/21 21:13 Dose: 0.5 mg Documented by: Colchicine (Colchicine 0.6 Mg Tablet) 0.6 mg PO BID [facility] Last Admin: 06/12/21 21:14 Dose: 0.6 mg Documented by: Diltiazem HCl (Diltiazem Hcl Cd 180 Mg Cap.Er.24h) 360 mg PO DAILY [facility]; Protocol Last Admin: 06/12/21 08:26 Dose: 360 mg Documented by: Divalproex Sodium (Divalproex Sodium Er 500 Mg Tab.Er.24h) 1,000 mg PO BEDTIME [facility] Last Admin: 06/12/21 21:14 Dose: 1,000 mg Documented by: Divalproex Sodium (Divalproex Sodium Er 500 Mg Tab.Er.24h) 500 mg PO DAILY [facility] Last Admin: 06/12/21 08:39 Dose: 500 mg Documented by: Famotidine (Famotidine 20 Mg Tablet) 10 mg PO BID PRN PRN Reason: Indigestion Ferrous Sulfate (Ferrous Sulfate 324 Mg Tablet.Dr) 324 mg PO DAILY [facility] Last Admin: 06/12/21 08:27 Dose: 324 mg Documented by: Fluticasone/Vilanterol (Fluticasone/Vilanterol 100/25 Blst.W.Dev) 1 puff INHALE DAILY [facility] Last Admin: 06/12/21 08:25 Dose: 1 puff Documented by: Furosemide (Furosemide 40 Mg Tablet) 40 mg PO DAILY [facility]; Protocol Last Admin: 06/12/21 08:27 Dose: 40 mg Documented by: Hydroxyzine HCl (Hydroxyzine Hcl 50 Mg Tablet) 50 mg PO TID PRN PRN Reason: Anxiety Lactulose (Lactulose 20 Gm/30 Ml Solution) 10 gm PO DAILY [facility] Last Admin: 06/12/21 08:29 Dose: Not Given Documented by: Levothyroxine Sodium (Levothyroxine Sodium 125 Mcg Tablet) 125 mcg PO DAILY [facility] Last Admin: 06/12/21 08:28 Dose: 125 mcg Documented by: Loperamide HCl (Loperamide Hcl 2 Mg Capsule) 2 mg PO Q6H PRN PRN Reason: Diarrhea Magnesium Hydroxide (Milk Of Magnesia 30 Ml Oral.Susp) 30 ml PO DAILY PRN PRN Reason: Constipation Metoprolol Succinate (Metoprolol Succinate Er 50 Mg Tab.Er.24h) 50 mg PO BID [facility]; Protocol Last Admin: 06/12/21 21:14 Dose: 50 mg Documented by: Multivitamins/Vitamin C (Multivitamin Tablet) 1 tab PO DAILY [facility] Last Admin: 06/12/21 08:27 Dose: 1 tab Documented by: Nicotine (Nicotine 21 Mg Patch.Td24) 21 mg TRANSDERMA DAILY [facility] Last Admin: 06/12/21 08:25 Dose: 21 mg Documented by: Nitrofurantoin Macrocrystals (Nitrofurantoin Monohyd/M-Cryst 100 Mg Capsule) 100 mg PO BID [facility] Last Admin: 06/12/21 21:14 Dose: 100 mg Documented by: Nystatin/Triamcinolone Acetonide (Nystatin/Triamcinolone Cream 15 Gm Tube) 1 appl TOPICAL BID [facility] Last Admin: 06/12/21 21:16 Dose: 1 appl Documented by: Olanzapine (Olanzapine 10 Mg Tablet) 10 mg PO TID PRN PRN Reason: Agitation Last Admin: 06/11/21 21:51 Dose: 10 mg Documented by: Polyethylene Glycol (Polyethylene Glycol 3350 17 Gm Powd.Pack) 17 gm PO DAILY [facility] Last Admin: 06/12/21 08:35 Dose: Not Given Documented by: Prazosin HCl (Prazosin Hcl 1 Mg Capsule) 1 mg PO BID [facility]; Protocol Last Admin: 06/12/21 21:14 Dose: 1 mg Documented by: Senna/Docusate Sodium (Sennosides/Docusate Sodium Tablet) 1 tab PO DAILY PRN PRN Reason: constipation Sitagliptin Phosphate (Sitagliptin Phosphate 100 Mg Tablet) 100 mg PO DAILY [facility] Last Admin: 06/12/21 08:27 Dose: 100 mg Documented by: Trazodone HCl (Trazodone Hcl 50 Mg Tablet) 50 mg PO BEDTIME [facility] Last Admin: 06/12/21 21:13 Dose: 50 mg Documented by: Venlafaxine HCl (Venlafaxine Hcl Er 150 Mg Cap.Er.24h) 150 mg PO DAILY [facility] Last Admin: 06/12/21 08:26 Dose: 150 mg Documented by: Allergies Allergies Allergy/AdvReac Type Severity Reaction Status Date / Time Penicillins Allergy Mild unkown Verified 11/24/19 23:09 Sulfa (Sulfonamide Allergy Mild unknown Verified 11/24/19 23:09 Antibiotics) Assessment & Plan Assessment & Plan (1) PTSD (post-traumatic stress disorder): Status: Acute Code(s): F43.10 - Post-traumatic stress disorder, unspecified (2) Borderline personality disorder: Status: Acute Code(s): F60.3 - Borderline personality disorder Plan continue home medications for now. Coordinate care with [facility]. Monitor for SOB/edema. UTI+ 06/13: Ct plan. Refer for DBT I spent minutes with the patient and/or on the patient floor today, greater than?50% of which was spent counseling/coordinating care. Reason for contiued inpatient stay Substantial Risk for: harm to self and med/psych decompensation
[2021-06-13 06:00] VITALS: BP 137/63; PULSE 69; RESP 16; O2SAT 97
[2021-06-13 09:04] LABS: B Type Natriuretic Peptide 294 pg/mL (<100)
[2021-06-13] MEDS: Nicotine 21 MG PATCH.TD24 TRANSDERMA (09:15)
[2021-06-13] MEDS: Fluticasone/Vilanterol 100/25 BLST.W.DEV 1 PUFF INHALE (09:15)
[2021-06-13] MEDS: Baclofen 10 MG TABLET PO ×2 (09:15→19:22)
[2021-06-13] MEDS: Multivitamin TABLET 1 TAB PO (09:15)
[2021-06-13] MEDS: Nystatin/Triamcinolone Cream 15 GM TUBE 1 APPL TOPICAL ×2 (09:15→21:37)
[2021-06-13] MEDS: Venlafaxine HCl ER 150 MG CAP.ER.24H PO (09:15)
[2021-06-13] MEDS: Levothyroxine Sodium 125 MCG TABLET PO (09:15)
[2021-06-13] MEDS: SITagliptin Phosphate 100 MG TABLET PO (09:15)
[2021-06-13] MEDS: Aspirin 81 MG TAB.CHEW PO (09:15)
[2021-06-13] MEDS: dilTIAZem HCL CD 180 MG CAP.ER.24H 360 MG PO (09:15)
[2021-06-13] MEDS: Divalproex Sodium ER 500 MG TAB.ER.24H PO (09:15)
[2021-06-13] MEDS: Nitrofurantoin Monohyd/M-Cryst 100 MG CAPSULE PO ×2 (09:15→19:24)
[2021-06-13] MEDS: Benztropine Mesylate 0.5 MG TABLET PO ×2 (09:15→19:22)
[2021-06-13] MEDS: Metoprolol Succinate ER 50 MG TAB.ER.24H PO ×2 (09:15→19:23)
[2021-06-13] MEDS: Colchicine 0.6 MG TABLET PO ×2 (09:16→19:23)
[2021-06-13] MEDS: ARIPiprazole 30 MG TABLET PO (09:16)
[2021-06-13] MEDS: Prazosin HCL 1 MG CAPSULE PO ×2 (09:16→19:23)
[2021-06-13] MEDS: Ferrous Sulfate 324 MG TABLET.DR PO (09:16)
[2021-06-13] MEDS: Furosemide 40 MG TABLET PO (09:16)
[2021-06-13 18:00] VITALS: BP 138/89; PULSE 102; RESP 16; TEMP 36.9; O2SAT 99
[2021-06-13] MEDS: Divalproex Sodium ER 500 MG TAB.ER.24H 1000 MG PO (19:22)
[2021-06-13] MEDS: traZODone HCL 50 MG TABLET PO (19:23)
[2021-06-13] MEDS: Atorvastatin Calcium 80 MG TABLET PO (19:23)
[2021-06-13] MEDS: Albuterol Sulfate 90 MCG 8 GM INHALER 2 PUFF INHALE (21:36)
[2021-06-13] MEDS: Acetaminophen 325 MG TABLET 650 MG PO (21:46)
[2021-06-14] MEDS: Albuterol Sulfate 90 MCG 8 GM INHALER 2 PUFF INHALE ×3 (06:04→14:33)
[2021-06-14 07:51] LABS: Folate 18.8 ng/mL (> or = 4.0); Vitamin B12 480 pg/mL (200-900)
[2021-06-14 08:10] VITALS: BP 125/64; PULSE 61; TEMP 36.4; O2SAT 95
[2021-06-14] MEDS: Nystatin/Triamcinolone Cream 15 GM TUBE 1 APPL TOPICAL ×2 (08:26→22:30)
[2021-06-14] MEDS: Fluticasone/Vilanterol 100/25 BLST.W.DEV 1 PUFF INHALE (08:26)
[2021-06-14] MEDS: Nicotine 21 MG PATCH.TD24 TRANSDERMA (08:27)
[2021-06-14] MEDS: Multivitamin TABLET 1 TAB PO (08:28)
[2021-06-14] MEDS: Nitrofurantoin Monohyd/M-Cryst 100 MG CAPSULE PO ×2 (08:28→21:52)
[2021-06-14] MEDS: SITagliptin Phosphate 100 MG TABLET PO (08:28)
[2021-06-14] MEDS: dilTIAZem HCL CD 180 MG CAP.ER.24H 360 MG PO (08:28)
[2021-06-14] MEDS: Ferrous Sulfate 324 MG TABLET.DR PO (08:29)
[2021-06-14] MEDS: Aspirin 81 MG TAB.CHEW PO (08:29)
[2021-06-14] MEDS: Divalproex Sodium ER 500 MG TAB.ER.24H PO (08:29)
[2021-06-14] MEDS: Colchicine 0.6 MG TABLET PO ×2 (08:29→21:52)
[2021-06-14] MEDS: ARIPiprazole 30 MG TABLET PO (08:29)
[2021-06-14] MEDS: Furosemide 40 MG TABLET PO (08:29)
[2021-06-14] MEDS: Metoprolol Succinate ER 50 MG TAB.ER.24H PO ×2 (08:29→21:52)
[2021-06-14] MEDS: Prazosin HCL 1 MG CAPSULE PO (08:29)
[2021-06-14] MEDS: Venlafaxine HCl ER 150 MG CAP.ER.24H PO (08:30)
[2021-06-14] MEDS: Baclofen 10 MG TABLET PO ×2 (08:30→21:52)
[2021-06-14] MEDS: Levothyroxine Sodium 125 MCG TABLET PO (08:30)
[2021-06-14] MEDS: Benztropine Mesylate 0.5 MG TABLET PO ×2 (08:30→21:52)
[2021-06-14] MEDS: Acetaminophen 325 MG TABLET 975 MG PO (16:49)
--- NOTE | 2021-06-14 17:17 | P.PNPSI_ITS ---
Subjective Subjective Date of Service: 06/14/21 Reason For Visit: Si, depression Interim History: Patient seen and discussed with team. Patient evaluated today and upon interview she reports the weekend went really well, feels proud of myself for not acting out. Says she feels safe. Feels anxiety due to homelessness. Says her voices didnt act up over the weekend, but are acting up today and that she is afraid because when my voices acted up I would act out in certain ways, I definitely dont wanna do that, i.e. in the past has had suicidal gestures like attempting to jump from a van. Reports the voices are negative and sound like someone not liking me. Says she thinks she needs med adjustments to help with the voices and paranoia. Previously on haldol, seroquel 800 mg, olanzapine. Currently on abilify. Sleep is awesome, trazodone knocks me out. Unclear benefit on prazosin 1 mg BID, denies flashbacks or nightmares. Mood is worried. ? In the milieu, patient is safe and appropriate in behavior. Medication Compliance: Yes Side effects from medications: No Attending Groups: Yes Review of Systems Acute medical concerns: No Medical Review of Systems: unchanged Mental Status Exam Mental Status Exam Narrative: A&O. Ambulates with walker, appears older than stated age. Good eye contact, attentive. No Tics or Tremors. No abnormal involuntary movements. Calm, cooperative, engaged. Non-pressured speech, spontaneous with regular rate and rhythm, normal volume and prosody. No prolonged speech latency or dysarthria. Mood is ?worried,? affect is appropriate. Denies SI/SIB/HI upon inquiry. Endorses AH. Denies VH. Endorses paranoid delusional thought content. Thoughts are coherent, has hx of BPD and acting out behaviors. No known cognitive or memory impairment. Insight/ Judgment limited but adequate. Diagnostics Vital Signs (24Hr): Vital Signs - 24 hr 06/13/21 18:00 06/14/21 08:10 Temperature 98.4 F 97.5 F Pulse Rate 102 H 61 Respiratory Rate 16 Blood Pressure 138/89 125/64 Pulse Oximetry 99 95 BMI result Body Mass Index 34.6 Labs Results: 06/10/21 18:59 06/10/21 18:59 Labs: Laboratory Results - last 48 hr 06/12/21 06/13/21 07:17 08:03 B-Natriuretic Peptide 294 H Vitamin B12 480 Folate 18.8 Imaging Radiology Impressions: ITS Impressions Chest X-Ray 06/10/21 18:43 IMPRESSION: No acute disease. Chronic increase in lung markings likely a bronchial wall thickening. Medications Medications Current Medications Acetaminophen (Acetaminophen 325 Mg Tablet) 975 mg PO Q6H PRN PRN Reason: mod-severe pain Last Admin: 06/14/21 16:49 Dose: 975 mg Documented by: Al Hydroxide/Mg Hydroxide (Magnesium Hydrox/Alum Hydrox 30 Ml Oral.Susp) 30 ml PO Q6H PRN PRN Reason: Heartburn/Nausea Albuterol Sulfate (Albuterol Sulfate 90 Mcg 8 Gm Inhaler) 2 puff INHALE Q4H [facility] Last Admin: 06/14/21 14:33 Dose: 2 puff Documented by: Aripiprazole (Aripiprazole 30 Mg Tablet) 30 mg PO DAILY [facility] Last Admin: 06/14/21 08:29 Dose: 30 mg Documented by: Aspirin (Aspirin 81 Mg Tab.Chew) 81 mg PO DAILY [facility] Last Admin: 06/14/21 08:29 Dose: 81 mg Documented by: Atorvastatin Calcium (Atorvastatin Calcium 80 Mg Tablet) 80 mg PO BEDTIME [facility] Last Admin: 06/13/21 19:23 Dose: 80 mg Documented by: Baclofen (Baclofen 10 Mg Tablet) 10 mg PO BID [facility] Last Admin: 06/14/21 08:30 Dose: 10 mg Documented by: Benztropine Mesylate (Benztropine Mesylate 0.5 Mg Tablet) 0.5 mg PO BID [facility] Last Admin: 06/14/21 08:30 Dose: 0.5 mg Documented by: Colchicine (Colchicine 0.6 Mg Tablet) 0.6 mg PO BID [facility] Last Admin: 06/14/21 08:29 Dose: 0.6 mg Documented by: Diltiazem HCl (Diltiazem Hcl Cd 180 Mg Cap.Er.24h) 360 mg PO DAILY [facility]; P rotocol Last Admin: 06/14/21 08:28 Dose: 360 mg Documented by: Divalproex Sodium (Divalproex Sodium Er 500 Mg Tab.Er.24h) 1,000 mg PO BEDTIME [facility] Last Admin: 06/13/21 19:22 Dose: 1,000 mg Documented by: Divalproex Sodium (Divalproex Sodium Er 500 Mg Tab.Er.24h) 500 mg PO DAILY [facility] Last Admin: 06/14/21 08:29 Dose: 500 mg Documented by: Famotidine (Famotidine 20 Mg Tablet) 10 mg PO BID PRN PRN Reason: Indigestion Ferrous Sulfate (Ferrous Sulfate 324 Mg Tablet.Dr) 324 mg PO DAILY [facility] Last Admin: 06/14/21 08:29 Dose: 324 mg Documented by: Fluticasone/Vilanterol (Fluticasone/Vilanterol 100/25 Blst.W.Dev) 1 puff INHALE DAILY [facility] Last Admin: 06/14/21 08:26 Dose: 1 puff Documented by: Furosemide (Furosemide 40 Mg Tablet) 40 mg PO DAILY [facility]; Protocol Last Admin: 06/14/21 08:29 Dose: 40 mg Documented by: Hydroxyzine HCl (Hydroxyzine Hcl 50 Mg Tablet) 50 mg PO TID PRN PRN Reason: Anxiety Lactulose (Lactulose 20 Gm/30 Ml Solution) 10 gm PO DAILY [facility] Last Admin: 06/14/21 09:04 Dose: Not Given Documented by: Levothyroxine Sodium (Levothyroxine Sodium 125 Mcg Tablet) 125 mcg PO DAILY [facility] Last Admin: 06/14/21 08:30 Dose: 125 mcg Documented by: Loperamide HCl (Loperamide Hcl 2 Mg Capsule) 2 mg PO Q6H PRN PRN Reason: Diarrhea Magnesium Hydroxide (Milk Of Magnesia 30 Ml Oral.Susp) 30 ml PO DAILY PRN PRN Reason: Constipation Metoprolol Succinate (Metoprolol Succinate Er 50 Mg Tab.Er.24h) 50 mg PO BID [facility]; Protocol Last Admin: 06/14/21 08:29 Dose: 50 mg Documented by: Multivitamins/Vitamin C (Multivitamin Tablet) 1 tab PO DAILY [facility] Last Admin: 06/14/21 08:28 Dose: 1 tab Documented by: Nicotine (Nicotine 21 Mg Patch.Td24) 21 mg TRANSDERMA DAILY [facility] Last Admin: 06/14/21 08:27 Dose: 21 mg Documented by: Nitrofurantoin Macrocrystals (Nitrofurantoin Monohyd/M-Cryst 100 Mg Capsule) 100 mg PO BID [facility] Last Admin: 06/14/21 08:28 Dose: 100 mg Documented by: Nystatin/Triamcinolone Acetonide (Nystatin/Triamcinolone Cream 15 Gm Tube) 1 appl TOPICAL BID [facility] Last Admin: 06/14/21 08:26 Dose: 1 appl Documented by: Olanzapine (Olanzapine 10 Mg Tablet) 10 mg PO TID PRN PRN Reason: Agitation Last Admin: 06/11/21 21:51 Dose: 10 mg Documented by: Polyethylene Glycol (Polyethylene Glycol 3350 17 Gm Powd.Pack) 17 gm PO DAILY [facility] Last Admin: 06/14/21 09:04 Dose: Not Given Documented by: Prazosin HCl (Prazosin Hcl 1 Mg Capsule) 1 mg PO BID [facility]; Protocol Last Admin: 06/14/21 08:29 Dose: 1 mg Documented by: Senna/Docusate Sodium (Sennosides/Docusate Sodium Tablet) 1 tab PO DAILY PRN PRN Reason: constipation Sitagliptin Phosphate (Sitagliptin Phosphate 100 Mg Tablet) 100 mg PO DAILY [facility] Last Admin: 06/14/21 08:28 Dose: 100 mg Documented by: Trazodone HCl (Trazodone Hcl 50 Mg Tablet) 50 mg PO BEDTIME [facility] Last Admin: 06/13/21 19:23 Dose: 50 mg Documented by: Venlafaxine HCl (Venlafaxine Hcl Er 150 Mg Cap.Er.24h) 150 mg PO DAILY [facility] Last Admin: 06/14/21 08:30 Dose: 150 mg Documented by: Allergies Allergies Allergy/AdvReac Type Severity Reaction Status Date / Time Penicillins Allergy Mild unkown Verified 11/24/19 23:09 Sulfa (Sulfonamide Allergy Mild unknown Verified 11/24/19 23:09 Antibiotics) Assessment & Plan Assessment & Plan (1) PTSD (post-traumatic stress disorder): Status: Acute Code(s): F43.10 - Post-traumatic stress disorder, unspecified (2) Borderline personality disorder: Status: Acute Code(s): F60.3 - Borderline personality disorder Plan continue home medications for now. Coordinate care with [facility] Blue Team. Monitor for SOB/edema. UTI+ 06/13: Ct plan. Refer for DBT 06/14: Will start perphenazine 8 mg BID for AH. Discontinue prazosin 1 mg BID due to unclear benefit, polypharm. Pt on cogentin 1 mg BID already, will continue. I spent minutes with the patient and/or on the patient floor today, greater than?50% of which was spent counseling/coordinating care. Patient educated on: medication risk/benefits Reason for contiued inpatient stay Substantial Risk for: harm to self, rapid decompensation and med/psych decompensation
[2021-06-14 18:00] VITALS: BP 136/62; PULSE 65; RESP 14; TEMP 36.1
[2021-06-14] MEDS: Perphenazine 8 MG TABLET PO ×2 (21:52→22:21)
[2021-06-14] MEDS: traZODone HCL 50 MG TABLET PO (21:52)
[2021-06-14] MEDS: Divalproex Sodium ER 500 MG TAB.ER.24H 1000 MG PO (21:53)
[2021-06-14] MEDS: Atorvastatin Calcium 80 MG TABLET PO (22:29)
[2021-06-15 06:00] VITALS: BP 157/72; PULSE 66; RESP 14; TEMP 36.3; O2SAT 100
[2021-06-15] MEDS: Albuterol Sulfate 90 MCG 8 GM INHALER 2 PUFF INHALE ×2 (06:31→23:15)
[2021-06-15] MEDS: Nicotine 21 MG PATCH.TD24 TRANSDERMA (08:38)
[2021-06-15] MEDS: Fluticasone/Vilanterol 100/25 BLST.W.DEV 1 PUFF INHALE (08:39)
[2021-06-15] MEDS: Benztropine Mesylate 0.5 MG TABLET PO ×2 (08:39→22:18)
[2021-06-15] MEDS: Nystatin/Triamcinolone Cream 15 GM TUBE 1 APPL TOPICAL ×2 (08:39→22:27)
[2021-06-15] MEDS: Multivitamin TABLET 1 TAB PO (08:40)
[2021-06-15] MEDS: Ferrous Sulfate 324 MG TABLET.DR PO (08:40)
[2021-06-15] MEDS: Venlafaxine HCl ER 150 MG CAP.ER.24H PO (08:40)
[2021-06-15] MEDS: Furosemide 40 MG TABLET PO (08:40)
[2021-06-15] MEDS: Metoprolol Succinate ER 50 MG TAB.ER.24H PO ×2 (08:40→22:19)
[2021-06-15] MEDS: Nitrofurantoin Monohyd/M-Cryst 100 MG CAPSULE PO ×2 (08:40→22:18)
[2021-06-15] MEDS: Divalproex Sodium ER 500 MG TAB.ER.24H PO (08:40)
[2021-06-15] MEDS: ARIPiprazole 30 MG TABLET PO (08:40)
[2021-06-15] MEDS: dilTIAZem HCL CD 180 MG CAP.ER.24H 360 MG PO (08:40)
[2021-06-15] MEDS: Aspirin 81 MG TAB.CHEW PO (08:40)
[2021-06-15] MEDS: Baclofen 10 MG TABLET PO ×2 (08:40→22:19)
[2021-06-15] MEDS: SITagliptin Phosphate 100 MG TABLET PO (08:41)
[2021-06-15] MEDS: Colchicine 0.6 MG TABLET PO ×2 (08:41→22:18)
[2021-06-15] MEDS: Perphenazine 8 MG TABLET PO ×2 (08:41→22:18)
[2021-06-15] MEDS: Levothyroxine Sodium 125 MCG TABLET PO (08:41)
[2021-06-15 09:27] LABS: Valproate 94.4 mcg/mL (50.0-100.0)
--- NOTE | 2021-06-15 10:16 | HO.PSYCHPN ---
Subjective Subjective Date of Service: 06/15/21 Reason For Visit: Si, depression Interim History: pt reports she's better, mood is better and that SI remains resolved. She is anxious however about where she will live when discharges. Pt says her outpt team wants her to go a rest home but this makes her anxious and feel down since she wants to go [facility] a pen[facility] and this feels like a regression; however, she has insight to say that she's burned a lot of bridges... with group homes and she can see that possibly going to a rest home is a chance to prove she can tolerate/be appropriate in a group living situation. Pt says meds are fine. She says she gets paranoid, thinking people are talking about her; she's not sure if she has AH about this or just paranoid thinking; however, she says this anxiety has diminished and she reports it's easier to ignore it. She has insight to know this is her mind playing tricks on her. Mental Status Exam Mental Status Exam Narrative: A&O. Ambulates with walker, appears older than stated age. Good eye contact, attentive. No Tics or Tremors. No abnormal involuntary movements. Calm, cooperative, engaged. Non-pressured speech, spontaneous with regular rate and rhythm, normal volume and prosody. No prolonged speech latency or dysarthria. Mood is ?anxious,? affect is appropriate. Denies SI/SIB/HI upon inquiry. Endorses AH. Denies VH. Endorses paranoid delusional thought content. Thoughts are coherent, has hx of BPD and acting out behaviors. No known cognitive or memory impairment. Insight/ Judgment impaired but adequate.? Diagnostics Vital Signs (24Hr): Vital Signs - 24 hr 06/14/21 18:00 06/15/21 06:00 Temperature 97 F 97.4 F Pulse Rate 65 66 Respiratory Rate 14 14 Blood Pressure 136/62 157/72 H Pulse Oximetry 100 BMI result Body Mass Index 34.6 Labs Results: 06/10/21 18:59 06/10/21 18:59 Labs: Laboratory Results - last 48 hr 06/12/21 06/15/21 07:17 08:01 Vitamin B12 480 Folate 18.8 Valproic Acid 94.4 Imaging Radiology Impressions: ITS Impressions Chest X-Ray 06/10/21 18:43 IMPRESSION: No acute disease. Chronic increase in lung markings likely a bronchial wall thickening. Medications Medications Current Medications Acetaminophen (Acetaminophen 325 Mg Tablet) 975 mg PO Q6H PRN PRN Reason: mod-severe pain Last Admin: 06/14/21 16:49 Dose: 975 mg Documented by: Al Hydroxide/Mg Hydroxide (Magnesium Hydrox/Alum Hydrox 30 Ml Oral.Susp) 30 ml PO Q6H PRN PRN Reason: Heartburn/Nausea Albuterol Sulfate (Albuterol Sulfate 90 Mcg 8 Gm Inhaler) 2 puff INHALE Q4H [facility] Last Admin: 06/15/21 06:31 Dose: 2 puff Documented by: Aripiprazole (Aripiprazole 30 Mg Tablet) 30 mg PO DAILY [facility] Last Admin: 06/15/21 08:40 Dose: 30 mg Documented by: Aspirin (Aspirin 81 Mg Tab.Chew) 81 mg PO DAILY [facility] Last Admin: 06/15/21 08:40 Dose: 81 mg Documented by: Atorvastatin Calcium (Atorvastatin Calcium 80 Mg Tablet) 80 mg PO BEDTIME [facility] Last Admin: 06/14/21 22:29 Dose: 80 mg Documented by: Baclofen (Baclofen 10 Mg Tablet) 10 mg PO BID [facility] Last Admin: 06/15/21 08:40 Dose: 10 mg Documented by: Benztropine Mesylate (Benztropine Mesylate 0.5 Mg Tablet) 0.5 mg PO BID [facility] Last Admin: 06/15/21 08:39 Dose: 0.5 mg Documented by: Colchicine (Colchicine 0.6 Mg Tablet) 0.6 mg PO BID [facility] Last Admin: 06/15/21 08:41 Dose: 0.6 mg Documented by: Diltiazem HCl (Diltiazem Hcl Cd 180 Mg Cap.Er.24h) 360 mg PO DAILY [facility]; Protocol Last Admin: 06/15/21 08:40 Dose: 360 mg Documented by: Divalproex Sodium (Divalproex Sodium Er 500 Mg Tab.Er.24h) 1,000 mg PO BEDTIME [facility] Last Admin: 06/14/21 21:53 Dose: 1,000 mg Documented by: Divalproex Sodium (Divalproex Sodium Er 500 Mg Tab.Er.24h) 500 mg PO DAILY [facility] Last Admin: 06/15/21 08:40 Dose: 500 mg Documented by: Famotidine (Famotidine 20 Mg Tablet) 10 mg PO BID PRN PRN Reason: Indigestion Ferrous Sulfate (Ferrous Sulfate 324 Mg Tablet.Dr) 324 mg PO DAILY [facility] Last Admin: 06/15/21 08:40 Dose: 324 mg Documented by: Fluticasone/Vilanterol (Fluticasone/Vilanterol 100/25 Blst.W.Dev) 1 puff INHALE DAILY [facility] Last Admin: 06/15/21 08:39 Dose: 1 puff Documented by: Furosemide (Furosemide 40 Mg Tablet) 40 mg PO DAILY [facility]; Protocol Last Admin: 06/15/21 08:40 Dose: 40 mg Documented by: Hydroxyzine HCl (Hydroxyzine Hcl 50 Mg Tablet) 50 mg PO TID PRN PRN Reason: Anxiety Lactulose (Lactulose 20 Gm/30 Ml Solution) 10 gm PO DAILY [facility] Last Admin: 06/14/21 09:04 Dose: Not Given Documented by: Levothyroxine Sodium (Levothyroxine Sodium 125 Mcg Tablet) 125 mcg PO DAILY [facility] Last Admin: 06/15/21 08:41 Dose: 125 mcg Documented by: Loperamide HCl (Loperamide Hcl 2 Mg Capsule) 2 mg PO Q6H PRN PRN Reason: Diarrhea Magnesium Hydroxide (Milk Of Magnesia 30 Ml Oral.Susp) 30 ml PO DAILY PRN PRN Reason: Constipation Metoprolol Succinate (Metoprolol Succinate Er 50 Mg Tab.Er.24h) 50 mg PO BID [facility]; Protocol Last Admin: 06/15/21 08:40 Dose: 50 mg Documented by: Multivitamins/Vitamin C (Multivitamin Tablet) 1 tab PO DAILY [facility] Last Admin: 06/15/21 08:40 Dose: 1 tab Documented by: Nicotine (Nicotine 21 Mg Patch.Td24) 21 mg TRANSDERMA DAILY [facility] Last Admin: 06/15/21 08:38 Dose: 21 mg Documented by: Nitrofurantoin Macrocrystals (Nitrofurantoin Monohyd/M-Cryst 100 Mg Capsule) 100 mg PO BID [facility] Last Admin: 06/15/21 08:40 Dose: 100 mg Documented by: Nystatin/Triamcinolone Acetonide (Nystatin/Triamcinolone Cream 15 Gm Tube) 1 appl TOPICAL BID [facility] Last Admin: 06/15/21 08:39 Dose: 1 appl Documented by: Olanzapine (Olanzapine 10 Mg Tablet) 10 mg PO TID PRN PRN Reason: Agitation Last Admin: 06/11/21 21:51 Dose: 10 mg Documented by: Perphenazine (Perphenazine 8 Mg Tablet) 8 mg PO BID [facility] Last Admin: 06/15/21 08:41 Dose: 8 mg Documented by: Polyethylene Glycol (Polyethylene Glycol 3350 17 Gm Powd.Pack) 17 gm PO DAILY [facility] Last Admin: 06/14/21 09:04 Dose: Not Given Documented by: Senna/Docusate Sodium (Sennosides/Docusate Sodium Tablet) 1 tab PO DAILY PRN PRN Reason: constipation Sitagliptin Phosphate (Sitagliptin Phosphate 100 Mg Tablet) 100 mg PO DAILY [facility] Last Admin: 06/15/21 08:41 Dose: 100 mg Documented by: Trazodone HCl (Trazodone Hcl 50 Mg Tablet) 50 mg PO BEDTIME [facility] Last Admin: 06/14/21 21:52 Dose: 50 mg Documented by: Trolamine Salicylate/Aloe Vera (Trolamine Salicylate 10%/Aloe Cream 35.4 Gm) 1 appl TOPICAL TID PRN PRN Reason: arthritis Venlafaxine HCl (Venlafaxine Hcl Er 150 Mg Cap.Er.24h) 150 mg PO DAILY [facility] Last Admin: 06/15/21 08:40 Dose: 150 mg Documented by: Allergies Allergies Allergy/AdvReac Type Severity Reaction Status Date / Time Penicillins Allergy Mild unkown Verified 11/24/19 23:09 Sulfa (Sulfonamide Allergy Mild unknown Verified 11/24/19 23:09 Antibiotics) Assessment & Plan Assessment & Plan (1) PTSD (post-traumatic stress disorder): Status: Acute Code(s): F43.10 - Post-traumatic stress disorder, unspecified (2) Borderline personality disorder: Status: Acute Code(s): F60.3 - Borderline personality disorder Plan continue home medications for now. Coordinate care with [facility] Blue [facility]. Monitor for SOB/edema. UTI+ 06/13: Ct plan. Refer for DBT 06/15 continue current tx plan; will review meds and see if possible to reduce some I spent minutes with the patient and/or on the patient floor today, greater than?50% of which was spent counseling/coordinating care. Patient educated on: diagnosis Informed Consent: understands Reason for contiued inpatient stay Substantial Risk for: stable for discharge
[2021-06-15] MEDS: Acetaminophen 325 MG TABLET 975 MG PO ×2 (13:37→23:15)
[2021-06-15] MEDS: OLANZapine 10 MG TABLET PO ×2 (16:56→23:10)
[2021-06-15 18:00] VITALS: BP 122/70; PULSE 75; TEMP 36.1; O2SAT 98
[2021-06-15] MEDS: Atorvastatin Calcium 80 MG TABLET PO (22:19)
[2021-06-15] MEDS: Divalproex Sodium ER 500 MG TAB.ER.24H 1000 MG PO (22:19)
[2021-06-15] MEDS: traZODone HCL 50 MG TABLET PO (22:19)
[2021-06-15] MEDS: hydrOXYzine HCL 50 MG TABLET PO (23:10)
[2021-06-16 09:40] VITALS: BP 164/74; PULSE 98; RESP 16; TEMP 36.9; O2SAT 98
[2021-06-16] MEDS: Nystatin/Triamcinolone Cream 15 GM TUBE 1 APPL TOPICAL ×2 (09:47→21:19)
[2021-06-16] MEDS: Nicotine 21 MG PATCH.TD24 TRANSDERMA (09:47)
[2021-06-16] MEDS: Fluticasone/Vilanterol 100/25 BLST.W.DEV 1 PUFF INHALE (09:47)
[2021-06-16] MEDS: Levothyroxine Sodium 125 MCG TABLET PO (09:48)
[2021-06-16] MEDS: Baclofen 10 MG TABLET PO ×2 (09:48→21:12)
[2021-06-16] MEDS: Colchicine 0.6 MG TABLET PO ×2 (09:48→21:12)
[2021-06-16] MEDS: Nitrofurantoin Monohyd/M-Cryst 100 MG CAPSULE PO ×2 (09:48→21:13)
[2021-06-16] MEDS: Ferrous Sulfate 324 MG TABLET.DR PO (09:48)
[2021-06-16] MEDS: Perphenazine 8 MG TABLET PO ×2 (09:48→21:14)
[2021-06-16] MEDS: Aspirin 81 MG TAB.CHEW PO (09:48)
[2021-06-16] MEDS: Furosemide 40 MG TABLET PO (09:48)
[2021-06-16] MEDS: ARIPiprazole 30 MG TABLET PO (09:48)
[2021-06-16] MEDS: Benztropine Mesylate 0.5 MG TABLET PO ×2 (09:48→21:12)
[2021-06-16] MEDS: Metoprolol Succinate ER 50 MG TAB.ER.24H PO ×2 (09:48→21:13)
[2021-06-16] MEDS: Multivitamin TABLET 1 TAB PO (09:49)
[2021-06-16] MEDS: dilTIAZem HCL CD 180 MG CAP.ER.24H 360 MG PO (09:49)
[2021-06-16] MEDS: Divalproex Sodium ER 500 MG TAB.ER.24H PO (09:49)
[2021-06-16] MEDS: SITagliptin Phosphate 100 MG TABLET PO (09:49)
[2021-06-16] MEDS: Venlafaxine HCl ER 150 MG CAP.ER.24H PO (09:49)
--- NOTE | 2021-06-16 10:20 | HO.PSYCHPN ---
Subjective Subjective Date of Service: 06/16/21 Reason For Visit: Si, depression Interim History: Patient reports that she is less anxious, especially knowing that she is not going to a senior care/Rest Home but rather back to the hotel. She denies any SI. She talked about her struggles to keep herself from acting out when she is upset since she has done it for so much of her life; she also had the insight to know that her suicidal thinking is also her frequent go to thought when triggered and that given the chronicity of it, this will also likely continue intermittently. HOwever, Patient said she has been working on learning to forgive herself and accept the fact that she is human and will continue to have intermittent struggles. Patient's shared that last night she intermittently had a suicidal thought but was able to talk through in that it resolved on its own. Patient says that she feels ready for discharge. Sander Setter discussed medication regimen with her and she agrees to continue with regimen. Patient said that she has urinary accidents at night, having trouble getting to the bathroom on time. She thinks it is a combination of Lasix trouble with mobility as she uses a walker. Patient says however that while this has always been true during the day, it has only been at night, since this admission. She asks if she can be on a medication that would help relieve this. Diagnostics Vital Signs (24Hr): Vital Signs - 24 hr 06/15/21 18:00 Temperature 97.0 F Pulse Rate 75 Blood Pressure 122/70 Pulse Oximetry 98 BMI result Body Mass Index 34.6 Labs Results: 06/10/21 18:59 06/10/21 18:59 Labs: Laboratory Results - last 48 hr 06/15/21 08:01 Valproic Acid 94.4 Imaging Radiology Impressions: ITS Impressions Chest X-Ray 06/10/21 18:43 IMPRESSION: No acute disease. Chronic increase in lung markings likely a bronchial wall thickening. Medications Medications Current Medications Acetaminophen (Acetaminophen 325 Mg Tablet) 975 mg PO Q6H PRN PRN Reason: mod-severe pain Last Admin: 06/15/21 23:15 Dose: 975 mg Documented by: Al Hydroxide/Mg Hydroxide (Magnesium Hydrox/Alum Hydrox 30 Ml Oral.Susp) 30 ml PO Q6H PRN PRN Reason: Heartburn/Nausea Albuterol Sulfate (Albuterol Sulfate 90 Mcg 8 Gm Inhaler) 2 puff INHALE Q4H [facility] Last Admin: 06/16/21 09:58 Dose: Not Given Documented by: Aripiprazole (Aripiprazole 30 Mg Tablet) 30 mg PO DAILY [facility] Last Admin: 06/16/21 09:48 Dose: 30 mg Documented by: Aspirin (Aspirin 81 Mg Tab.Chew) 81 mg PO DAILY [facility] Last Admin: 06/16/21 09:48 Dose: 81 mg Documented by: Atorvastatin Calcium (Atorvastatin Calcium 80 Mg Tablet) 80 mg PO BEDTIME [facility] Last Admin: 06/15/21 22:19 Dose: 80 mg Documented by: Baclofen (Baclofen 10 Mg Tablet) 10 mg PO BID [facility] Last Admin: 06/16/21 09:48 Dose: 10 mg Documented by: Benztropine Mesylate (Benztropine Mesylate 0.5 Mg Tablet) 0.5 mg PO BID [facility] Last Admin: 06/16/21 09:48 Dose: 0.5 mg Documented by: Colchicine (Colchicine 0.6 Mg Tablet) 0.6 mg PO BID [facility] Last Admin: 06/16/21 09:48 Dose: 0.6 mg Documented by: Diltiazem HCl (Diltiazem Hcl Cd 180 Mg Cap.Er.24h) 360 mg PO DAILY [facility]; Protocol Last Admin: 06/16/21 09:49 Dose: 360 mg Documented by: Divalproex Sodium (Divalproex Sodium Er 500 Mg Tab.Er.24h) 1,000 mg PO BEDTIME [facility] Last Admin: 06/15/21 22:19 Dose: 1,000 mg Documented by: Divalproex Sodium (Divalproex Sodium Er 500 Mg Tab.Er.24h) 500 mg PO DAILY [facility] Last Admin: 06/16/21 09:49 Dose: 500 mg Documented by: Famotidine (Famotidine 20 Mg Tablet) 10 mg PO BID PRN PRN Reason: Indigestion Ferrous Sulfate (Ferrous Sulfate 324 Mg Tablet.Dr) 324 mg PO DAILY [facility] Last Admin: 06/16/21 09:48 Dose: 324 mg Documented by: Fluticasone/Vilanterol (Fluticasone/Vilanterol 100/25 Blst.W.Dev) 1 puff INHALE DAILY [facility] Last Admin: 06/16/21 09:47 Dose: 1 puff Documented by: Furosemide (Furosemide 40 Mg Tablet) 40 mg PO DAILY [facility]; Protocol Last Admin: 06/16/21 09:48 Dose: 40 mg Documented by: Hydroxyzine HCl (Hydroxyzine Hcl 50 Mg Tablet) 50 mg PO TID PRN PRN Reason: Anxiety Last Admin: 06/15/21 23:10 Dose: 50 mg Documented by: Lactulose (Lactulose 20 Gm/30 Ml Solution) 10 gm PO DAILY [facility] Last Admin: 06/16/21 09:58 Dose: Not Given Documented by: Levothyroxine Sodium (Levothyroxine Sodium 125 Mcg Tablet) 125 mcg PO DAILY [facility] Last Admin: 06/16/21 09:48 Dose: 125 mcg Documented by: Loperamide HCl (Loperamide Hcl 2 Mg Capsule) 2 mg PO Q6H PRN PRN Reason: Diarrhea Magnesium Hydroxide (Milk Of Magnesia 30 Ml Oral.Susp) 30 ml PO DAILY PRN PRN Reason: Constipation Metoprolol Succinate (Metoprolol Succinate Er 50 Mg Tab.Er.24h) 50 mg PO BID [facility]; Protocol Last Admin: 06/16/21 09:48 Dose: 50 mg Documented by: Multivitamins/Vitamin C (Multivitamin Tablet) 1 tab PO DAILY [facility] Last Admin: 06/16/21 09:49 Dose: 1 tab Documented by: Nicotine (Nicotine 21 Mg Patch.Td24) 21 mg TRANSDERMA DAILY [facility] Last Admin: 06/16/21 09:47 Dose: 21 mg Documented by: Nitrofurantoin Macrocrystals (Nitrofurantoin Monohyd/M-Cryst 100 Mg Capsule) 100 mg PO BID [facility] Last Admin: 06/16/21 09:48 Dose: 100 mg Documented by: Nystatin/Triamcinolone Acetonide (Nystatin/Triamcinolone Cream 15 Gm Tube) 1 appl TOPICAL BID [facility] Last Admin: 06/16/21 09:47 Dose: 1 appl Documented by: Olanzapine (Olanzapine 10 Mg Tablet) 10 mg PO TID PRN PRN Reason: Agitation Last Admin: 06/15/21 23:10 Dose: 10 mg Documented by: Perphenazine (Perphenazine 8 Mg Tablet) 8 mg PO BID [facility] Last Admin: 06/16/21 09:48 Dose: 8 mg Documented by: Polyethylene Glycol (Polyethylene Glycol 3350 17 Gm Powd.Pack) 17 gm PO DAILY [facility] Last Admin: 06/16/21 09:58 Dose: Not Given Documented by: Senna/Docusate Sodium (Sennosides/Docusate Sodium Tablet) 1 tab PO DAILY PRN PRN Reason: constipation Sitagliptin Phosphate (Sitagliptin Phosphate 100 Mg Tablet) 100 mg PO DAILY [facility] Last Admin: 06/16/21 09:49 Dose: 100 mg Documented by: Trazodone HCl (Trazodone Hcl 50 Mg Tablet) 50 mg PO BEDTIME [facility] Last Admin: 06/15/21 22:19 Dose: 50 mg Documented by: Trolamine Salicylate/Aloe Vera (Trolamine Salicylate 10%/Aloe Cream 35.4 Gm) 1 appl TOPICAL TID PRN PRN Reason: arthritis Venlafaxine HCl (Venlafaxine Hcl Er 150 Mg Cap.Er.24h) 150 mg PO DAILY [facility] Last Admin: 06/16/21 09:49 Dose: 150 mg Documented by: Allergies Allergies Allergy/AdvReac Type Severity Reaction Status Date / Time Penicillins Allergy Mild unkown Verified 11/24/19 23:09 Sulfa (Sulfonamide Allergy Mild unknown Verified 11/24/19 23:09 Antibiotics) Assessment & Plan Assessment & Plan (1) PTSD (post-traumatic stress disorder): Status: Acute Code(s): F43.10 - Post-traumatic stress disorder, unspecified (2) Borderline personality disorder: Status: Acute Code(s): F60.3 - Borderline personality disorder Plan 55-year-old female with history of PTSD, depression and borderline personality disorder who presents for SI. 06/13: Ct plan. Refer for DBT 06/15 continue current tx plan; will review meds and see if possible to reduce some 06/16 remains in improved mood; intermittent SI however patient feels that she can cope with that and has demonstrated ability to do so. Feels that medications are helpful and wants to continue. Feels ready for discharge -Patient said that she has urinary accidents at night, having trouble getting to the bathroom on time. She thinks it is a combination of Lasix and trouble with mobility as she uses a walker. However while she says this is common occurrence during the day, it has only been at night since this admission. She asks if she can be on a medication that would help relieve this. Sander Setter agreed to start oxybutynin. However on admission patient was started on antibiotic for UTI; will get a repeat UA to make sure her UTI has resolved and that this is not a symptom of ongoing infection. Patient otherwise denies dysuria. -Sander Setter reviewed history and patient was on 2 antipsychotics some intensely at her last admission. She has several trials of monotherapy including Haldol, Seroquel, Invega. She used to be on Zyprexa but this was discontinued Abilify was started as an outpatient. On this admission the admitting provider started her on perphenazine. Patient has failed 3 monotherapy trials in the past; at her last admission she was on 2 antipsychotic simultaneously. When casualty underwriter took over treatment of this patient, she was already on 2 antipsychotics and has stabilized on current regimen. Patient has a long history of psychiatric illness with complex medication regimen that is best overseen by an outpatient provider who can follow patient and know her well. Regarding current medication regimen, It is casualty underwriter's opinion that the benefits currently outweigh the risks and that patient can work on trying to tolerate monotherapy as an outpatient. Sander Setter discussed this with patient who agrees PLAN: CV Q 15 minute checks Start oxybutynin 5 mg q.h.s. for nocturnal urinary accidents Repeat UA as patient was started on antibiotic for UTI Otherwise continue medication regimen I spent minutes with the patient and/or on the patient floor today, greater than?50% of which was spent counseling/coordinating care. Patient educated on: diagnosis, medication risk/benefits and therapeutic strategies Informed Consent: understands Reason for contiued inpatient stay Substantial Risk for: stable for discharge
[2021-06-16 17:15] VITALS: BP 133/69; PULSE 69; RESP 20; TEMP 35.9; O2SAT 96
[2021-06-16] MEDS: Atorvastatin Calcium 80 MG TABLET PO (21:11)
[2021-06-16] MEDS: Divalproex Sodium ER 500 MG TAB.ER.24H 1000 MG PO (21:13)
[2021-06-16] MEDS: traZODone HCL 50 MG TABLET PO (21:14)
[2021-06-16] MEDS: Albuterol Sulfate 90 MCG 8 GM INHALER 2 PUFF INHALE (21:19)
[2021-06-17 08:45] VITALS: BP 105/58; PULSE 69; TEMP 36.4
[2021-06-17] MEDS: Fluticasone/Vilanterol 100/25 BLST.W.DEV 1 PUFF INHALE (08:47)
[2021-06-17] MEDS: Nystatin/Triamcinolone Cream 15 GM TUBE 1 APPL TOPICAL (08:48)
[2021-06-17] MEDS: Albuterol Sulfate 90 MCG 8 GM INHALER 2 PUFF INHALE ×3 (08:48→21:00)
[2021-06-17] MEDS: Nicotine 21 MG PATCH.TD24 TRANSDERMA (08:52)
[2021-06-17] MEDS: Aspirin 81 MG TAB.CHEW PO (08:53)
[2021-06-17] MEDS: Levothyroxine Sodium 125 MCG TABLET PO (08:53)
[2021-06-17] MEDS: dilTIAZem HCL CD 180 MG CAP.ER.24H 360 MG PO (08:53)
[2021-06-17] MEDS: Divalproex Sodium ER 500 MG TAB.ER.24H PO (08:53)
[2021-06-17] MEDS: Ferrous Sulfate 324 MG TABLET.DR PO (08:53)
[2021-06-17] MEDS: Colchicine 0.6 MG TABLET PO ×2 (08:53→21:03)
[2021-06-17] MEDS: Metoprolol Succinate ER 50 MG TAB.ER.24H PO ×2 (08:53→21:07)
[2021-06-17] MEDS: Perphenazine 8 MG TABLET PO ×2 (08:53→21:04)
[2021-06-17] MEDS: SITagliptin Phosphate 100 MG TABLET PO (08:53)
[2021-06-17] MEDS: Furosemide 40 MG TABLET PO (08:53)
[2021-06-17] MEDS: Multivitamin TABLET 1 TAB PO (08:53)
[2021-06-17] MEDS: ARIPiprazole 30 MG TABLET PO (08:53)
[2021-06-17] MEDS: Nitrofurantoin Monohyd/M-Cryst 100 MG CAPSULE PO ×2 (08:54→21:03)
[2021-06-17] MEDS: Baclofen 10 MG TABLET PO ×2 (08:54→21:04)
[2021-06-17] MEDS: Benztropine Mesylate 0.5 MG TABLET PO ×2 (08:54→21:02)
[2021-06-17] MEDS: Venlafaxine HCl ER 150 MG CAP.ER.24H PO (08:54)
--- NOTE | 2021-06-17 10:11 | HO.PSYCHPN ---
Subjective Subjective Date of Service: 06/17/21 Reason For Visit: Si, depression Interim History: Patient reports that she has doing okay and thinks that she will Do Good Post discharge because she will be going to [facility] and will be engaged in therapy. Patient says that if she has stuff to do and go out of for it will make a lot of difference... it will help being around other people with health issues. She talked again about likely intermittently struggling with suicidality and agrees that it is something she has been working on for long time and will continue to work on. She currently denies any SI. Patient implemented plan to have scheduled bathroom breaks and denies any incontinence during the day; She also was able to wake herself up at night to urinate and not have any accidents while sleeping. She said she has been avoiding giving the UA just not wanting to; she said she will try to do so. Manager Patient agrees that patient's incontinence is unlikely related to past UTI She said that she was having diarrhea today but that this is intermittently chronic and she plans to talk with her PCP at their next appointment. Patient continues to feel ready for discharge Mental Status Exam Mental Status Exam Narrative: A&O. Ambulates with walker, appears older than stated age. Good eye contact, attentive. No Tics or Tremors. No abnormal involuntary movements. Calm, cooperative, engaged. Non-pressured speech, spontaneous with regular rate and rhythm, normal volume and prosody. No prolonged speech latency or dysarthria. Mood is ?good,? affect is appropriate. Denies SI/SIB/HI upon inquiry. No AVH; No paranoid delusional thought content. Thoughts are coherent, and on discharge; No known cognitive or memory impairment. Insight/ Judgment impaired but have improved, at her baseline and adequate Diagnostics Vital Signs (24Hr): Vital Signs - 24 hr 06/16/21 17:15 Temperature 96.6 F L Pulse Rate 69 Respiratory Rate 20 Blood Pressure 133/69 Pulse Oximetry 96 BMI result Body Mass Index 34.6 Labs Results: 06/10/21 18:59 06/10/21 18:59 Imaging Radiology Impressions: ITS Impressions Chest X-Ray 06/10/21 18:43 IMPRESSION: No acute disease. Chronic increase in lung markings likely a bronchial wall thickening. Medications Medications Current Medications Acetaminophen (Acetaminophen 325 Mg Tablet) 975 mg PO Q6H PRN PRN Reason: mod-severe pain Last Admin: 06/15/21 23:15 Dose: 975 mg Documented by: Al Hydroxide/Mg Hydroxide (Magnesium Hydrox/Alum Hydrox 30 Ml Oral.Susp) 30 ml PO Q6H PRN PRN Reason: Heartburn/Nausea Albuterol Sulfate (Albuterol Sulfate 90 Mcg 8 Gm Inhaler) 2 puff INHALE Q4H [facility] Last Admin: 06/17/21 08:48 Dose: 2 puff Documented by: Aripiprazole (Aripiprazole 30 Mg Tablet) 30 mg PO DAILY [facility] Last Admin: 06/17/21 08:53 Dose: 30 mg Documented by: Aspirin (Aspirin 81 Mg Tab.Chew) 81 mg PO DAILY [facility] Last Admin: 06/17/21 08:53 Dose: 81 mg Documented by: Atorvastatin Calcium (Atorvastatin Calcium 80 Mg Tablet) 80 mg PO BEDTIME [facility] Last Admin: 06/16/21 21:11 Dose: 80 mg Documented by: Baclofen (Baclofen 10 Mg Tablet) 10 mg PO BID [facility] Last Admin: 06/17/21 08:54 Dose: 10 mg Documented by: Benztropine Mesylate (Benztropine Mesylate 0.5 Mg Tablet) 0.5 mg PO BID [facility] Last Admin: 06/17/21 08:54 Dose: 0.5 mg Documented by: Colchicine (Colchicine 0.6 Mg Tablet) 0.6 mg PO BID [facility] Last Admin: 06/17/21 08:53 Dose: 0.6 mg Documented by: Diltiazem HCl (Diltiazem Hcl Cd 180 Mg Cap.Er.24h) 360 mg PO DAILY [facility]; Protocol Last Admin: 06/17/21 08:53 Dose: 360 mg Documented by: Divalproex Sodium (Divalproex Sodium Er 500 Mg Tab.Er.24h) 1,000 mg PO BEDTIME [facility] Last Admin: 06/16/21 21:13 Dose: 1,000 mg Documented by: Divalproex Sodium (Divalproex Sodium Er 500 Mg Tab.Er.24h) 500 mg PO DAILY [facility] Last Admin: 06/17/21 08:53 Dose: 500 mg Documented by: Famotidine (Famotidine 20 Mg Tablet) 10 mg PO BID PRN PRN Reason: Indigestion Ferrous Sulfate (Ferrous Sulfate 324 Mg Tablet.Dr) 324 mg PO DAILY [facility] Last Admin: 06/17/21 08:53 Dose: 324 mg Documented by: Fluticasone/Vilanterol (Fluticasone/Vilanterol 100/25 Blst.W.Dev) 1 puff INHALE DAILY [facility] Last Admin: 06/17/21 08:47 Dose: 1 puff Documented by: Furosemide (Furosemide 40 Mg Tablet) 40 mg PO DAILY [facility]; Protocol Last Admin: 06/17/21 08:53 Dose: 40 mg Documented by: Hydroxyzine HCl (Hydroxyzine Hcl 50 Mg Tablet) 50 mg PO TID PRN PRN Reason: Anxiety Last Admin: 06/15/21 23:10 Dose: 50 mg Documented by: Lactulose (Lactulose 20 Gm/30 Ml Solution) 10 gm PO DAILY [facility] Last Admin: 06/16/21 09:58 Dose: Not Given Documented by: Levothyroxine Sodium (Levothyroxine Sodium 125 Mcg Tablet) 125 mcg PO DAILY [facility] Last Admin: 06/17/21 08:53 Dose: 125 mcg Documented by: Loperamide HCl (Loperamide Hcl 2 Mg Capsule) 2 mg PO Q6H PRN PRN Reason: Diarrhea Magnesium Hydroxide (Milk Of Magnesia 30 Ml Oral.Susp) 30 ml PO DAILY PRN PRN Reason: Constipation Metoprolol Succinate (Metoprolol Succinate Er 50 Mg Tab.Er.24h) 50 mg PO BID [facility]; Protocol Last Admin: 06/17/21 08:53 Dose: 50 mg Documented by: Multivitamins/Vitamin C (Multivitamin Tablet) 1 tab PO DAILY [facility] Last Admin: 06/17/21 08:53 Dose: 1 tab Documented by: Nicotine (Nicotine 21 Mg Patch.Td24) 21 mg TRANSDERMA DAILY [facility] Last Admin: 06/17/21 08:52 Dose: 21 mg Documented by: Nitrofurantoin Macrocrystals (Nitrofurantoin Monohyd/M-Cryst 100 Mg Capsule) 100 mg PO BID [facility] Last Admin: 06/17/21 08:54 Dose: 100 mg Documented by: Nystatin/Triamcinolone Acetonide (Nystatin/Triamcinolone Cream 15 Gm Tube) 1 appl TOPICAL BID [facility] Last Admin: 06/17/21 08:48 Dose: 1 appl Documented by: Olanzapine (Olanzapine 10 Mg Tablet) 10 mg PO TID PRN PRN Reason: Agitation Last Admin: 06/15/21 23:10 Dose: 10 mg Documented by: Oxybutynin Chloride (Oxybutynin Chloride Er 5 Mg Tab.Er.24) 5 mg PO BEDTIME [facility] Last Admin: 06/16/21 21:13 Dose: 5 mg Documented by: Perphenazine (Perphenazine 8 Mg Tablet) 8 mg PO BID [facility] Last Admin: 06/17/21 08:53 Dose: 8 mg Documented by: Polyethylene Glycol (Polyethylene Glycol 3350 17 Gm Powd.Pack) 17 gm PO DAILY [facility] Last Admin: 06/16/21 09:58 Dose: Not Given Documented by: Senna/Docusate Sodium (Sennosides/Docusate Sodium Tablet) 1 tab PO DAILY PRN PRN Reason: constipation Sitagliptin Phosphate (Sitagliptin Phosphate 100 Mg Tablet) 100 mg PO DAILY [facility] Last Admin: 06/17/21 08:53 Dose: 100 mg Documented by: Trazodone HCl (Trazodone Hcl 50 Mg Tablet) 50 mg PO BEDTIME [facility] Last Admin: 06/16/21 21:14 Dose: 50 mg Documented by: Trolamine Salicylate/Aloe Vera (Trolamine Salicylate 10%/Aloe Cream 35.4 Gm) 1 appl TOPICAL TID PRN PRN Reason: arthritis Venlafaxine HCl (Venlafaxine Hcl Er 150 Mg Cap.Er.24h) 150 mg PO DAILY [facility] Last Admin: 06/17/21 08:54 Dose: 150 mg Documented by: Allergies Allergies Allergy/AdvReac Type Severity Reaction Status Date / Time Penicillins Allergy Mild unkown Verified 11/24/19 23:09 Sulfa (Sulfonamide Allergy Mild unknown Verified 11/24/19 23:09 Antibiotics) Assessment & Plan Assessment & Plan (1) PTSD (post-traumatic stress disorder): Status: Acute Code(s): F43.10 - Post-traumatic stress disorder, unspecified (2) Borderline personality disorder: Status: Acute Code(s): F60.3 - Borderline personality disorder Plan 55-year-old female with history of PTSD, depression and borderline personality disorder who presents for SI. 06/13: Ct plan. Refer for DBT 06/15 continue current tx plan; will review meds and see if possible to reduce some 06/16 remains in improved mood; intermittent SI however patient feels that she can cope with that and has demonstrated ability to do so. Feels that medications are helpful and wants to continue. Feels ready for discharge -Patient said that she has urinary accidents at night, having trouble getting to the bathroom on time. She thinks it is a combination of Lasix and trouble with mobility as she uses a walker. However while she says this is common occurrence during the day, it has only been at night since this admission. She asks if she can be on a medication that would help relieve this. Manager Patient agreed to start oxybutynin. However on admission patient was started on antibiotic for UTI; will get a repeat UA to make sure her UTI has resolved and that this is not a symptom of ongoing infection. Patient otherwise denies dysuria. -Manager Patient reviewed history and patient was on 2 antipsychotics some intensely at her last admission. She has several trials of monotherapy including Haldol, Seroquel, Invega. She used to be on Zyprexa but this was discontinued Abilify was started as an outpatient. On this admission the admitting provider started her on perphenazine. Patient has failed 3 monotherapy trials in the past; at her last admission she was on 2 antipsychotic simultaneously. When technical report writer took over treatment of this patient, she was already on 2 antipsychotics and has stabilized on current regimen. Patient has a long history of psychiatric illness with complex medication regimen that is best overseen by an outpatient provider who can follow patient and know her well. Regarding current medication regimen, It is technical report writer's opinion that the benefits currently outweigh the risks and that patient can work on trying to tolerate monotherapy as an outpatient. Manager Patient discussed this with patient who agrees 06/17 Mood is good; patient is cooperative and relaxed and feels ready for discharge. She is thinking about how she will probably do better now that she will be going to a day program which there is a van that transfers people to and from their homes. She denies any SI. Patient is not in imminent risk for harm to self or others And is appropriate To continue treatment as an outpatient PLAN: CV Q 15 minute checks Start oxybutynin 5 mg q.h.s. for nocturnal urinary accidents Repeat UA as patient was started on antibiotic for UTI; Patient has refused to give a UA. It is unlikely that this is the cause of her urinary incontinence which is just overnight and has resolved with scheduled back for breaks and is more likely due to neurogenic bladder (patient said that she cannot feel when bladder is full) Otherwise continue medication regimen I spent minutes with the patient and/or on the patient floor today, greater than?50% of which was spent counseling/coordinating care. Patient educated on: diagnosis, therapeutic strategies and medical condition Informed Consent: understands Reason for contiued inpatient stay Substantial Risk for: stable for discharge
[2021-06-17] MEDS: Loperamide HCl 2 MG CAPSULE PO (18:50)
[2021-06-17] MEDS: Famotidine 20 MG TABLET 10 MG PO (18:50)
[2021-06-17] MEDS: Ondansetron ODT 8 MG TAB.RAPDIS TRANSLINGU (20:56)
[2021-06-17 21:00] VITALS: BP 136/63; PULSE 68; RESP 18; TEMP 36.8; O2SAT 97
[2021-06-17] MEDS: Atorvastatin Calcium 80 MG TABLET PO (21:02)
[2021-06-17] MEDS: Divalproex Sodium ER 500 MG TAB.ER.24H 1000 MG PO (21:02)
[2021-06-17] MEDS: traZODone HCL 50 MG TABLET PO (21:03)
--- NOTE | 2021-06-17 22:07 | PC.NURSE ---
Pt made remarks to staff about fears that upon discharge she may go into the med box at the hotel and overdose on available meds. Passed this along to days also.
[2021-06-18] MEDS: Albuterol Sulfate 90 MCG 8 GM INHALER 2 PUFF INHALE ×2 (06:28→09:06)
[2021-06-18 08:30] VITALS: BP 133/73; PULSE 59; TEMP 36.2
[2021-06-18] MEDS: Nicotine 21 MG PATCH.TD24 TRANSDERMA (08:49)
[2021-06-18] MEDS: Levothyroxine Sodium 125 MCG TABLET PO (08:49)
[2021-06-18] MEDS: Colchicine 0.6 MG TABLET PO (08:49)
[2021-06-18] MEDS: Metoprolol Succinate ER 50 MG TAB.ER.24H PO (08:50)
[2021-06-18] MEDS: Divalproex Sodium ER 500 MG TAB.ER.24H PO (08:50)
[2021-06-18] MEDS: SITagliptin Phosphate 100 MG TABLET PO (08:50)
[2021-06-18] MEDS: dilTIAZem HCL CD 180 MG CAP.ER.24H 360 MG PO (08:50)
[2021-06-18] MEDS: Multivitamin TABLET 1 TAB PO (08:50)
[2021-06-18] MEDS: Venlafaxine HCl ER 150 MG CAP.ER.24H PO (08:50)
[2021-06-18] MEDS: Perphenazine 8 MG TABLET PO (08:50)
[2021-06-18] MEDS: Benztropine Mesylate 0.5 MG TABLET PO (08:50)
[2021-06-18] MEDS: Baclofen 10 MG TABLET PO (08:50)
[2021-06-18] MEDS: Furosemide 40 MG TABLET PO (08:50)
[2021-06-18] MEDS: Aspirin 81 MG TAB.CHEW PO (08:50)
[2021-06-18] MEDS: ARIPiprazole 30 MG TABLET PO (08:51)
[2021-06-18] MEDS: Nystatin/Triamcinolone Cream 15 GM TUBE 1 APPL TOPICAL (08:51)
[2021-06-18] MEDS: Nitrofurantoin Monohyd/M-Cryst 100 MG CAPSULE PO (08:51)
[2021-06-18] MEDS: Ferrous Sulfate 324 MG TABLET.DR PO (08:51)
[2021-06-18] MEDS: Fluticasone/Vilanterol 100/25 BLST.W.DEV 1 PUFF INHALE (08:51)
[2021-06-18] MEDS: Acetaminophen 325 MG TABLET 975 MG PO (09:10)
--- NOTE | 2021-06-18 09:41 | P.DS_ITS ---
DS: Providers Provider Date of Service: 06/18/21 Date of admission: 06/11/21 22:11 Date of discharge: 06/18/21 Primary care physician: SHAKIRA Nichols Attending physician on admission: Turner Stringer Attending physician on discharge: Refugio De Souza DS: Diagnosis Discharge Diagnosis (1) PTSD (post-traumatic stress disorder): Status: Acute (2) Borderline personality disorder: Status: Acute DS: Medications Discharge Medications Home Medications: Home Medications Medication Instructions Recorded Confirmed aripiprazole 30 mg tablet (Abilify) 30 mg PO DAILY 11/25/19 06/10/21 divalproex 500 mg tablet,extended 500 mg PO DAILY 11/25/19 06/10/21 release 24 hr hydroxyzine pamoate 50 mg capsule 50 mg PO TID PRN 11/25/19 06/10/21 (Vistaril) metoprolol succinate 50 mg 50 mg PO BID 11/25/19 06/10/21 tablet,extended release 24 hr multivitamin (Daily-Lisa) 1 tab PO DAILY 11/25/19 06/10/21 trazodone 50 mg tablet 50 mg PO BEDTIME 11/25/19 06/10/21 albuterol sulfate 90 mcg/actuation 2 puff INHALATION Q4H 05/05/21 06/10/21 aerosol inhaler aspirin 81 mg chewable tablet 81 mg PO DAILY 05/05/21 06/10/21 atorvastatin 80 mg tablet 80 mg PO BEDTIME 05/05/21 06/10/21 baclofen 10 mg tablet 10 mg PO BID 05/05/21 06/10/21 benztropine 0.5 mg tablet 0.5 mg PO BID 05/05/21 06/10/21 budesonide-formoterol HFA 80 2 puff INHALATION BID 05/05/21 06/10/21 mcg-4.5 mcg/actuation aerosol inhaler (Symbicort) colchicine 0.6 mg tablet 0.6 mg PO BID 05/05/21 06/10/21 diltiazem HCl 360 mg capsule,24 360 mg PO DAILY 05/05/21 06/10/21 hr,extended release divalproex 500 mg tablet,extended 1,000 mg PO BEDTIME 05/05/21 06/10/21 release 24 hr famotidine 10 mg tablet 10 mg PO BID PRN 05/05/21 06/10/21 ferrous sulfate 325 mg (65 mg 325 mg PO DAILY 05/05/21 06/10/21 iron) tablet lactulose 10 gram/15 mL (15 mL) 15 ml PO DAILY 05/05/21 06/10/21 oral solution levothyroxine 125 mcg tablet 125 mcg PO DAILY 05/05/21 06/10/21 loperamide 2 mg tablet 2 mg PO Q6H PRN 05/05/21 06/10/21 olanzapine 10 mg tablet 10 mg PO TID PRN 05/05/21 06/10/21 polyethylene glycol 3350 17 gram 17 g PO DAILY 05/05/21 06/10/21 oral powder packet prazosin 1 mg capsule 1 mg PO BID 05/05/21 06/10/21 sitagliptin 100 mg tablet 100 mg PO DAILY 05/05/21 06/10/21 clotrimazole-betamethasone 1 1 applic TOPICAL BID 06/10/21 06/10/21 %-0.05 % topical cream furosemide 40 mg tablet 1 tab PO DAILY 06/10/21 06/10/21 nicotine 21 mg/24 hr daily 1 patch TOPICAL DAILY 06/10/21 06/10/21 transdermal patch sennosides 8.6 mg-docusate sodium 1 tab PO DAILY PRN 06/10/21 06/10/21 50 mg tablet (Senna Plus) venlafaxine 150 mg 1 cap PO DAILY 06/10/21 06/10/21 capsule,extended release 24 hr Previous Rx's Medication Instructions Recorded nitrofurantoin 100 mg PO Q12H 5 Days #10 cap 06/10/21 monohydrate/macrocrystals 100 mg capsule (Macrobid) Data Data Completed and Pending Completed studies during hospitalization [Text1]: 06/12/21 06/12/21 06/12/21 07:17 07:17 07:17 Estimat Average Glucose 103 Hemoglobin A1c % 5.2 Magnesium 1.9 B-Natriuretic Peptide Triglycerides 82 Cholesterol 132 LDL Cholesterol, Calc 75 HDL Cholesterol 41 Vitamin B12 480 Folate 18.8 TSH 2.16 Free T4 1.07 Valproic Acid 06/13/21 06/15/21 08:03 08:01 Estimat Average Glucose Hemoglobin A1c % Magnesium B-Natriuretic Peptide 294 H Triglycerides Cholesterol LDL Cholesterol, Calc HDL Cholesterol Vitamin B12 Folate TSH Free T4 Valproic Acid 94.4 06/10/21 22:00 Urine clean catch - Urine bland top Urine Culture - Final Imaging Diagnostic Imaging Impressions Chest X-Ray 06/10/21 18:43 IMPRESSION: No acute disease. Chronic increase in lung markings likely a bronchial wall thickening. DS: Summary Hospital Course Hospital Course: 55-year-old female with history of PTSD, depression and borderline personality disorder, chronic SI with chronic gestures, numerous hospitalizations, who presents for SI. Once on the unit patient's mood soon improved. Prior to this admission her Zyprexa was discontinued and she was started on Abilify. The admitting provider also started her on the additional antipsychotic perphenazine which seemed to help patient stabilize. Regarding medications, her prazosin was discontinued as it did not seem to provide benefit and she was started on oxybutynin 5 mg q.h.s. for nocturnal urinary accidents as she would have trouble ambulating to the bathroom in time (this resolved with scheduled bathroom breaks; patient wanted to remain on oxybutynin for now and will discuss further with PCP); on admission, she was started on antibiotic for UTI. During admission patient was cooperative and friendly; she was forthcoming in interviews and worked on being in behavioral control and not acting out. She continued to have intermittent SI but said it was fleeting and able to be ignored. When anxious she would intermittently have auditory hallucinations about peers/staff talking about her though she had insight to consider if these were actual voices or rather paranoid thoughts associated w/ anxiety. Overall these subsided and her anxiety diminished. Patient remained in good behavioral and impulse control throughout her stay in the unit. Her SI remained resolved. She discussed her anxiety over her living situation which was a prime topic of discussion. Patient says her outpt team wants her to go a rest home but the idea of this makes her anxious and she rather go to a prison; however, she has insight to say that she's burned a lot of bridges... with group homes and she can see that possibly goi ng to a rest home is a chance to prove she can tolerate/be appropriate in a group living situation. As discharge approached, patient remained future oriented. She was glad to know she was going back to the hotel instead of a rest home/skilled nursing. Patient discussed her chronic struggles with insight and shared that her suicidal thinking is her frequent go to thought when triggered; she understands that given the chronicity of it, this will also likely continue intermittently, but shared that she has been working on learning to forgive herself and accept? the fact that she is human and will continue to have intermittent struggles.? Up until the day of discharge, Patient reported that she is ready for discharge and in a good mood, calm and feeling she will probably do better now that she will be going to a day program for which there is a van that transfers people to and from their homes.? She continued to deny any SI and remained in good behavioral control.? However on the morning of discharge patient suddenly said she had suicidal ideation and did not want discharge. Staff who know her well explain that this is typically what happens on the morning of every discharge and that it is very common for her to need police escort off the unit to complete her discharge. [employer] discussed this with patient who had moments where she acccepted that this is her pattern and other times when she reverted back to saying she was suicidal. [employer] shared with patient that if upon returning home she continues to feel unsafe she can always come back to the emergency room. Given patient's history, long and clear pattern of this behavior on discharge, triggered by anxiety of discharge, combined with the fact that she had been in a good mood, without any SI, future oriented and in good behavioral control up until the moment of discharge (and that in the past, following being escorted out she remained safe despite SI comments), feature writer and team agreed that a longer stay on the unit will not benefit patient in any way, that her symptoms are chronic and need to be worked out over time in the community, and that staying on the unit longer will not prevent this same behavior happening again on the morning of any future discharge. Team agreed that patient is at her baseline which incorporates this behavior. Team agrees that she is not in imminent risk for harm to self or other s and is appropriate To continue treatment as an outpatient. Regarding medication regimen and being on 2 antipsychotics, [employer] discussed with the admitting provider, the medication decision to add a second antipsychotic. Patients history reviewed and she has failed 3+ monotherapy trials in the past; at her last admission she was discharged on 2 antipsychotic simultaneously.?Patient has a long history of psychiatric illness with complex medication regimen and feature writer agrees with admitting provider that currently the benefits of being on 2 antipsychotics outweigh the risks. Given patient's com plexity, feature writer also agrees that in general her medication management will be best overseen by her outpatient provider who can follow her and know her well, during which time she can attempt to see if she tolerates monotherapy. [employer] discussed this with patient also understands the increased risks but agrees with plan agrees and wants to continue with current regimen. Med trials: haldol seroquel 800 mg, olanzapine. Invega Time spent discussing smoking cessation with patient: 3 to 10 minutes Status at Discharge Functional status at discharge: uses cane/walker Overall status at discharge: patient is back to baseline Time Spent with Patient Time attestation: Total time spent providing and/or coordinating discharge services: Time spent: Greater than 30 minutes Discharge Plan Discharge Patient Disposition: Home, Self-Care Discharge Diagnosis: PTSD, chronic with acute exacerbation; Borderline Persona lity disorder Referrals: Psychiatric Med Management: Dr. Joel Orr [Other] - 07/07/21 11:00 am (This is an in-office appointment. This is a regular 20 minute follow-up appointment* *) Psychiatric Med Management: Dr. Joel Orr [Other] - 07/15/21 9:00 am (This is an in-office appointment. This is your hospital discharge follow-up appointment) [facility] [Other] - 1 Week (You have been referred for participation in the day treatment program. Please have your [facility] ACCS Team contact the program to schedule your start date) [facility] Therapy Intake: Open Access Hours [Other] - 06/21/21 10:00 am ([facility] is offering walk-in hours to complete a therapy intake appointment Monday-Monday from 10-12PM. Once you complete the intake appointment, you will be assigned to a therapist when a space becomes available ) [facility] [Other] - 06/18/21 (fax- [phone] or [phone] Services to restart at discharge) Darell Elizabeth PA [Primary Care Provider] - 06/24/21 2:00 pm (IN OFFICE) Discharge Medications: New nitrofurantoin monohyd/m-cryst [Macrobid] 100 mg capsule 100 mg PO Q12H 5 Days Qty: 10 0RF Rx Instructions: must administer with a meal/food perphenazine 8 mg Tablet 8 mg PO BID 30 Days Qty: 60 0RF oxybutynin chloride 5 mg Tablet Extended Release 24 Hr 5 mg PO BEDTIME 30 Days Qty: 30 0RF fosfomycin tromethamine 3 gram packet 1 packet PO ONCE 1 Days Qty: 1 0RF Continued atorvastatin 80 mg Tablet 80 mg PO BEDTIME 30 Days Qty: 30 0RF benztropine 0.5 mg Tablet 0.5 mg PO BID 30 Days Qty: 60 0RF famotidine 10 mg Tablet 10 mg PO BID PRN (Reason: Indigestion) 30 Days Qty: 60 0RF hydroxyzine pamoate [Vistaril] 50 mg Capsule 50 mg PO TID PRN (Reason: Anxiety) 30 Days Qty: 90 0RF diltiazem HCl 360 mg Capsule,Extended Release 24 Hr 360 mg PO DAILY 30 Days Qty: 30 0RF baclofen 10 mg Tablet 10 mg PO BID 30 Days Qty: 60 0RF ferrous sulfate 325 mg (65 mg iron) Tablet 325 mg PO DAILY 30 Days Qty: 30 0RF levothyroxine 125 mcg Tablet 125 mcg PO DAILY 30 Days Qty: 30 0RF divalproex 500 mg tablet extended release 24 hr 500 mg PO DAILY 30 Days Qty: 30 0RF divalproex 500 mg Tablet Extended Release 24 Hr 1,000 mg PO BEDTIME 30 Days Qty: 60 0RF aspirin 81 mg Tablet,Chewable 81 mg PO DAILY 30 Days Qty: 30 0RF albuterol sulfate 90 mcg/actuation Hfa Aerosol Inhaler 2 puff INHALATION Q4H 30 Days Qty: 6.7 0RF colchicine 0.6 mg Tablet 0.6 mg PO BID 30 Days Qty: 60 0RF aripiprazole [Abilify] 30 mg Tablet 30 mg PO DAILY 30 Days Qty: 30 0RF budesonide-formoterol [Symbicort] 80-4.5 mcg/actuation Hfa Aerosol Inhaler 2 puff INHALATION BID 30 Days Qty: 10.2 0RF lactulose 10 gram/15 mL (15 mL) Solution 15 ml PO DAILY 30 Days Qty: 450 0RF multivitamin [Daily-Lisa] Tablet 1 tab PO DAILY 30 Days Qty: 30 0RF polyethylene glycol 3350 17 gram Powder In Packet 17 g PO DAILY 30 Days Qty: 30 0RF metoprolol succinate 50 mg tablet extended release 24 hr 50 mg PO BID 30 Days Qty: 60 0RF prazosin 1 mg Capsule 1 mg PO BID 30 Days Qty: 60 0RF sennosides-docusate sodium [Senna Plus] 8.6-50 mg tablet 1 tab PO DAILY PRN (Reason: constipation) 30 Days Qty: 30 0RF loperamide 2 mg Tablet 2 mg PO Q6H PRN (Reason: Diarrhea) 30 Days Qty: 60 0RF sitagliptin 100 mg Tablet 100 mg PO DAILY 30 Days Qty: 30 0RF Changed furosemide 40 mg tablet 40 mg PO DAILY 30 Days Qty: 30 0RF clotrimazole-betamethasone 1-0.05 % cream 1 appl topical BID 30 Days Qty: 45 0RF trazodone 50 mg tablet 50 mg PO BEDTIME PRN (Reason: insomnia) 30 Days Qty: 30 0RF venlafaxine 150 mg capsule,extended release 24hr 150 mg PO DAILY 30 Days Qty: 30 0RF nicotine 21 mg/24 hr patch 24 hour 1 patch topical DAILY PRN (Reason: nicotine cravings) 28 Days Qty: 28 0RF Rx Instructions: remove at bedtime Discontinued olanzapine 10 mg Tablet 10 mg PO TID PRN (Reason: Agitation) Discharge Orders: Discharge Order (Routine); Ordered 06/18/21 Ordered By: Refugio De Souza Diet: diabetic diet Activity on Discharge: As tolerated Stand Alone Forms: Patient Portal Discharge page, Community Support Activity Restrictions/Additional Instructions: Patient has a UTI; treated with Macrobid 100mg BID for 7 days. Discharged with script for Fosfomycin 3mg one time. Care Plan Goals: Maintain mood and safe behaviors Take medications as prescribed Practice coping skills Continue with outpatient providers and reach out to them as needed Health Concerns: Mood stability and behaviors UTI: Completed 7 day course of Macrobid 100mg BID. Discharged with script for Fosfomycin 3mg one time. Diabetes CHF Hypertension High Cholesterol Plan of Treatment: Follow up with your PCP, psychiatric provider and other outpatient providers regarding above concerns Take medications as prescribed Assessment: Risk assessment at time of discharge:? Patient was interviewed prior to discharge and found to be fully oriented and without any SI or HI. Patient has insight and demonstrates good judgment in terms of wanting to pursue treatment. Patient is not in imminent risk of harm to self or others and has a safety plan that includes presenting to the closest ER or calling 911 if feeling unsafe.? Patient has been observed closely by nursing and unit staff throughout admission; patient has not engaged in any behaviors that suggest dangerousness to self or others and once stabilized demonstrated appropriate behaviors and impulse control Discharge Date/Time: 06/18/21 13:51
[2021-06-18 10:13] LABS: Appearance Urine CLEAR; Color Urine YELLOW; Glucose Urine UA NEG (NEG); Leukocyte Esterase Urine 2+ (NEG); Nitrite Urine NEG (NEG); PH 5.5 (5.0-8.0); Specific Gravity - Urine 1.015 (1.005-1.025); UACC Culture Trigger YES; Urine Blood TRACE (NEG); Urine Ketones NEG (NEG); Urine Protein NEG (NEG-TRACE)
[2021-06-18 10:38] LABS: Bacteria Urine 1+ /LPF; Squamous Epithelial Cell Urine 1+ /LPF; UACC CULT YES
== END 2021-06-18 13:51 | disposition home or self-care (01) | DRG 885 ==
LOC: HO.ED 22:33 → HO.PM5 06-11 22:17
PROVIDERS: Physician Assistant; Psychiatry & Neurology Psychiatry; Registered Nurse; Admitting Provider Psychiatry & Neurology Psychiatry; Emergency Provider Internal Medicine; PCP Physician Assistant; Visit Provider Psychiatry & Neurology Psychiatry
DX: F31.9 Bipolar disorder, unspecified (principal); R45.851 Suicidal ideations; N39.0 Urinary tract infection, site not specified; F43.10 Post-traumatic stress disorder, unspecified; F60.3 Borderline personality disorder; I12.9 Hypertensive chronic kidney disease with stage 1 through stage 4 chronic kidney disease, or unspecified chronic kidney disease; N18.9 Chronic kidney disease, unspecified; E11.22 Type 2 diabetes mellitus with diabetic chronic kidney disease; Z20.822 Contact with and (suspected) exposure to COVID-19; Z87.891 Personal history of nicotine dependence; Z59.02 Unsheltered homelessness; Z88.0 Allergy status to penicillin; Z88.2 Allergy status to sulfonamides; Z79.82 Long term (current) use of aspirin; Z79.890 Hormone replacement therapy; Z79.899 Other long term (current) drug therapy
CPT/HCPCS: 36415; 71045; 80053; 80061; 80143; 80164; 80179; 80307; 81001; 82077; 82607; 82746; 83036; 83735; 83880; 84439; 84443; 85025; 87086; 87635; 93005; 96374; 99285; J1940

== ENCOUNTER 2023-05-08 13:06 | Inpatient (IN) | payer OTHER, SELFPAY ==
[2023-05-08] VITALS (7 sets, daily range): BP systolic 107–190; BP diastolic 51–90; PULSE 66–81; RESP 18–20; TEMP 36.9; O2SAT 72–100; BMI 42.3
--- NOTE | ~2023-05-08 | XR_ITS ---
EXAMINATION: XR CHEST CLINICAL INFORMATION: Dyspnea COMPARISON: 06/10/2021 TECHNIQUE: Frontal view of the chest was obtained. FINDINGS: There is mild cardiac enlargement. Again noted is some mild central vascular prominence. Is no gross CHF. Peribronchial thickening is seen. No large effusions, infiltrates or lung masses are seen. Should be noted that at the time of the 11/24/2019 study, the chest radiograph looked fairly similar in the CT scan performed the next day didn't show small predominantly subpulmonic pleural effusions. A loop recorder is noted in the left precordium. XR/XR chest 1V IMPRESSION: Mild cardiomegaly with central vascular prominence. No acute intrathoracic disease.
--- NOTE | 2023-05-08 13:13 | ECG_ITS ---
Test Reason : DYSPNEA Blood Pressure : / mmHG Vent. Rate : 081 BPM Atrial Rate : 081 BPM P-R Int : 182 ms QRS Dur : 138 ms QT Int : 448 ms P-R-T Axes : 077 073 026 degrees QTc Int : 520 ms Normal sinus rhythm Right bundle branch block Abnormal ECG When compared with ECG of 11-JUN-2021 14:42, Right bundle branch block is now Present Referred By: Elizabeth Golden Electronically Signed By:TERI MONTERO
--- NOTE | 2023-05-08 13:17 | ED.SOB ---
HPI - SOB/Dyspnea General Chief Complaint: Dyspnea Stated Complaint: Respiratory Distress Source: patient, EMS and old records reviewed Mode of arrival: EMS Limitations: other (poor historian) History of Present Illness HPI Narrative: 57 yo female with PMH of CHF, borderline, PTSD, HLD, obesity, COPD, afib/flutter, hypothyroidism has been at [facility] for many months for the past week has had cough unable to produce sputum runny nose and does not feel well. She was found to have increased work of breathing today with sats in the 80s. EMS noted a RA sat of 80 gave duoneb with some relief MD elicited complaint: shortness of breath and cough Pertinent past history: asthma and congestive heart failure Onset (ago): week(s) (1) Context: recent illness Timing: progressively worsening Severity: moderate Exacerbating factors: exertion and coughing Relieving factors: oxygen and bronchodilators Known history of: asthma and congestive heart failure Associated symptoms: cough and wheezing Treatment prior to arrival: bronchodilator Related Data Previous Rx's Medication Instructions Recorded nitrofurantoin 100 mg PO Q12H 5 days #10 caps 06/10/21 monohydrate/macrocrystals 100 mg capsule (Macrobid) albuterol sulfate 90 mcg/actuation 2 puff inhalation Q4H 30 days #6.7 06/18/21 aerosol inhaler grams aripiprazole 30 mg tablet (Abilify) 30 mg PO DAILY 30 days #30 tabs 06/18/21 aspirin 81 mg chewable tablet 81 mg PO DAILY 30 days #30 tabs 06/18/21 atorvastatin 80 mg tablet 80 mg PO BEDTIME 30 days #30 tabs 06/18/21 baclofen 10 mg tablet 10 mg PO BID 30 days #60 tabs 06/18/21 benztropine 0.5 mg tablet 0.5 mg PO BID 30 days #60 tabs 06/18/21 budesonide-formoterol HFA 80 2 puff inhalation BID 30 days 06/18/21 mcg-4.5 mcg/actuation aerosol #10.2 grams inhaler (Symbicort) clotrimazole-betamethasone 1 1 appl topical BID 30 days #45 06/18/21 %-0.05 % topical cream grams colchicine 0.6 mg tablet 0.6 mg PO BID 30 days #60 tabs 04/29/22 diltiazem HCl 360 mg capsule,24 360 mg PO DAILY 30 days #30 caps 06/18/21 hr,extended release divalproex 500 mg tablet,extended 1,000 mg (2 x 500 mg) PO BEDTIME 06/18/21 release 24 hr 30 days #60 tabs divalproex 500 mg tablet,extended 500 mg PO DAILY 30 days #30 tabs 06/18/21 release 24 hr famotidine 10 mg tablet 10 mg PO BID PRN Indigestion 30 06/18/21 days #60 tabs ferrous sulfate 325 mg (65 mg 325 mg PO DAILY 30 days #30 tabs 06/18/21 iron) tablet fosfomycin tromethamine 3 gram 1 packet PO ONCE 1 day #1 ea 06/18/21 oral packet furosemide 40 mg tablet 40 mg PO DAILY 30 days #30 tabs 06/18/21 hydroxyzine pamoate 50 mg capsule 50 mg PO TID PRN Anxiety 30 days 06/18/21 (Vistaril) #90 caps lactulose 10 gram/15 mL (15 mL) 15 ml PO DAILY 30 days #450 mL 06/18/21 oral solution levothyroxine 125 mcg tablet 125 mcg PO DAILY 30 days #30 tabs 06/18/21 loperamide 2 mg tablet 2 mg PO Q6H PRN Diarrhea 30 days 06/18/21 #60 tabs metoprolol succinate 50 mg 50 mg PO BID 30 days #60 tabs 06/18/21 tablet,extended release 24 hr multivitamin (Daily-Lisa tablet) 1 tab PO DAILY 30 days #30 tabs 06/18/21 nicotine 21 mg/24 hr daily 1 patch topical DAILY PRN nicotine 06/18/21 transdermal patch cravings 28 days #28 ea oxybutynin chloride 5 mg 5 mg PO BEDTIME 30 days #30 tabs 06/18/21 tablet,extended release 24 hr perphenazine 8 mg tablet 8 mg PO BID 30 days #60 tabs 06/18/21 polyethylene glycol 3350 17 gram 17 g PO DAILY 30 days #30 ea 06/18/21 oral powder packet prazosin 1 mg capsule 1 mg PO BID 30 days #60 caps 06/18/21 sennosides 8.6 mg-docusate sodium 1 tab PO DAILY PRN constipation 30 06/18/21 50 mg tablet (Senna Plus) days #30 tabs sitagliptin phosphate 100 mg tablet 100 mg PO DAILY 30 days #30 tabs 06/18/21 trazodone 50 mg tablet 50 mg PO BEDTIME PRN insomnia 30 06/18/21 days #30 tabs venlafaxine 150 mg 150 mg PO DAILY 30 days #30 caps 06/18/21 capsule,extended release 24 hr Allergies Allergy/AdvReac Type Severity Reaction Status Date / Time Penicillins Allergy Mild unkown Verified 05/08/23 13:12 Sulfa (Sulfonamide Allergy Mild unknown Verified 05/08/23 13:12 Antibiotics) Review of Systems Review of Systems: Constitutional : No Fever, pos Chills ENT/Mouth : No Hoarseness, No sore throat, No Rhinorrhea Eyes: No Redness, No Discharge, No Vision Changes Cardiovascular : No Chest Pain, positive SOB, positive Dyspnea on Exertion, pos Edema Respiratory : positive Cough, No Sputum, positive Wheezing, Gastrointestinal : No Nausea, No Vomiting, No Diarrhea, No abdominal Pain Genitourinary : No Dysuria, No Hematuria Musculoskeletal : No joint pain, No Myalgias Skin : No rash Neuro : No Weakness, No Numbness, No Headache Psych : No anxiety, depression Heme/Lymph: No Bruising, No Bleeding Endocrine : No Polyuria, No Polydipsia All other systems reviewed and are negative PMFSH Past Medical History Attestation statement: The following information was validated with the patient. Source: old records reviewed Medical History Kidney disease Bipolar 1 disorder HTN (hypertension) Diabetes Social History Social History Household Members: None Household Members Other:: 3 other people live in nursing home Housing: Homeless Housing Other:: snf Do you presently have visiting nurse or other home services: No Alcohol intake: never Comment: utilizes netta Patient Tobacco Use Status: Former Tobacco user Cigarette Packs Per Day: 0.5 Cigarettes Per Day: 10.0 Smoked in Last 30 Days: No Use of substances other than those prescribed or required for medical reasons: No Advance Directives: Yes Advance Directives on File: Yes Advance Directives Date on File: 11/25/19 Patient : No service: No (Px. was asleep when called for this assessment.) Sexual orientation: Px. was asleep when called for this assessment. Physical Exam Vital Signs: Vital Signs: Last Vital Signs Temp 98.4 F 05/08/23 13:13 Pulse 73 05/08/23 15:14 Resp 20 05/08/23 15:14 BP 147/68 H 05/08/23 15:14 Pulse Ox 96 05/08/23 15:14 O2 Del Method Large Bore Nasal Cannula 05/08/23 15:14 O2 Flow Rate 2 05/08/23 15:14 BMI result Body Mass Index 42.3 Appearance: Alert. Oriented X3. Mild acute distress. Eyes: Pupils equal, round and reactive to light. ENT: Pharynx normal. Neck: Normal inspection. Neck supple. CVS: Normal heart rate and rhythm. Pulses normal. Respiratory: Mild respiratory distress tachypnea and retractions. Breath sounds diminished with diffuse wheezing Abdomen: Soft and nontender. Skin: Skin warm and dry. pale skin color. Normal skin turgor. Extremities: 1-2+ pitting lower extremity edema. Neuro: Oriented X 3. No motor deficit. No sensory deficit. Course Course Course Narrative: 96% on 2L IVF Medications Administered Discontinued Medications Generic Name Dose Route Start Last Admin Trade Name Freq PRN Reason Stop Dose Admin Albuterol Sulfate 2.5 mg/ 0 mg 05/08/23 13:13 05/08/23 13:23 Albuterol/Ipratropium 3 ml INHALE 05/08/23 13:14 1 dose ONCE ONE Administration Furosemide 40 mg 05/08/23 15:22 05/08/23 15:57 Furosemide 40 Mg/4 Ml Vial IVPUSH 05/08/23 15:23 40 mg STAT STA Administration Protocol Doxycycline Hyclate 100 mg/ 250 mls @ 166.67 mls/hr 05/08/23 13:33 05/08/23 15:55 Sodium Chloride IV 05/08/23 15:02 166.67 mls/hr ONCE ONE Administration Magnesium Sulfate 2 gm in 50 mls @ 25 mls/hr 05/08/23 14:03 05/08/23 15:50 Magnesium Sulfate/H2o IV 05/08/23 16:02 Infused ONCE ONE Infusion Methylprednisolone Sodium Succinate 60 mg 05/08/23 13:12 05/08/23 13:34 Methylprednisolone Sod Succ 125 Mg/2 Ml Vial IVPUSH 05/08/23 13:13 60 mg ONCE ONE Administration Medical Decision Making Medical Decision Making [facility] Narrative: 57 yo female with PMH of CHF, borderline, PTSD, HLD, obesity, COPD, afib/flutter, hypothyroidism here with c/o wheezing, cough, URI symptoms x 1 week now hypoxic she is responding to neb treatment at this time labs, cultures, viral panel, CXR and IV steroids. Possible viral syndrome, COPD, pneumonia, CHF suspect more COPD exacerbation in setting of URI she is requiring O2 Differential Diagnosis Differential Diagnoses: The differential diagnosis associated with the presentation includes viral syndrome, COPD, pneumonia, CHF Admission/Observation Consideration of admission/observation: Escalation of care including admission/observation considered given hypoxia will need admission she is improved Consult Healthcare Provider Management of the patient was discussed with: Hospitalist Lab Data [facility] Lab Attestation statement: I reviewed the patient's lab results. 05/08/23 14:51 05/08/23 14:51 Labs: Lab Results 05/08/23 05/08/23 05/08/23 Range/Units 13:16 14:50 14:51 WBC 10.7 (4.8-10.8) X10*3/uL RBC 3.63 L (4.20-5.50) X10*6/uL Hgb 9.5 L (12.0-16.0) g/dl Hct 31.2 L (37.0-47.0) % MCV 86.0 (80.0-98.0) fL MCH 26.2 L (27.0-33.0) pg MCHC 30.4 L (31.0-35.0) g/dl RDW 17.6 H (11.0-16.0) % Plt Count 235 D (160-400) X10*3/uL MPV 11.2 (9.4-12.3) fL Immature Gran % (Auto) 0.3 (0.0-0.4) % Neut % (Auto) 73.4 H (45-73) % Lymph % (Auto) 11.6 L (20-40) % [place] % (Auto) 8.9 (2-11) % Eos % (Auto) 4.7 H (0-4) % Baso % (Auto) 1.1 (0-2) % Lymph # (Auto) 1.2 (1.2-4.9) X10*3/uL [place] # (Auto) 1.0 (0.1-1.2) X10*3/uL Eos # (Auto) 0.5 H (0.0-0.4) X10*3/uL Baso # (Auto) 0.1 (0.0-0.2) X10*3/uL Abs Immat Gran (auto) 0.03 (0.00-0.03) X10*3/uL Absolute Neuts (auto) 7.9 (2.0-8.3) x10*3/uL Absolute Nucleated RBC 0.000 (0.0-0.012) X10*3/uL Nucleated RBC % (auto) 0.0 (0.0-0.2) /100WBC Sodium 138 (135-145) mmol/L Potassium 4.2 (3.3-5.1) mmol/L Chloride 104 (96-108) mmol/L Carbon Dioxide 24 (22-29) mmol/L Anion Gap 14 (12-20) BUN 13 (9-16) mg/dL Creatinine 0.89 (0.5-1.4) mg/dL Estim Creat Clear Calc 93.7 Estimated GFR > 60 POC Glucose 113 (60-115) mg/dL Random Glucose 121 H (60-115) mg/dL Lactic Acid 1.8 (0.5-2.0) mmol/L Calcium 9.3 (8.4-10.2) mg/dL Magnesium 1.9 (1.6-2.6) mg/dL Total Bilirubin 0.3 (0.0-1.0) mg/dL Direct Bilirubin 0.2 (0.0-0.5) mg/dL AST 11 (5-31) U/L ALT 7 (0-31) U/L Alkaline Phosphatase 88 (39-117) U/L Troponin I High Sens < 2.7 (<3.5-17.0) ng/L B-Natriuretic Peptide 440 H (<100) pg/mL Total Protein 7.6 (6.5-8.0) g/dL Albumin 3.6 (3.5-5.0) g/dL Valproic Acid (50.0-100.0) mcg/mL Influenza Type A (PCR) (Negative) Influenza Type B (PCR) (Negative) RSV RNA Qual (PCR) (Negative) SARS-CoV-2 RNA (RT-PCR) (Negative) 05/08/23 Range/Units 15:24 WBC (4.8-10.8) X10*3/uL RBC (4.20-5.50) X10*6/uL Hgb (12.0-16.0) g/dl Hct (37.0-47.0) % MCV (80.0-98.0) fL MCH (27.0-33.0) pg MCHC (31.0-35.0) g/dl RDW (11.0-16.0) % Plt Count (160-400) X10*3/uL MPV (9.4-12.3) fL Immature Gran % (Auto) (0.0-0.4) % Neut % (Auto) (45-73) % Lymph % (Auto) (20-40) % [place] % (Auto) (2-11) % Eos % (Auto) (0-4) % Baso % (Auto) (0-2) % Lymph # (Auto) (1.2-4.9) X10*3/uL [place] # (Auto) (0.1-1.2) X10*3/uL Eos # (Auto) (0.0-0.4) X10*3/uL Baso # (Auto) (0.0-0.2) X10*3/uL Abs Immat Gran (auto) (0.00-0.03) X10*3/uL Absolute Neuts (auto) (2.0-8.3) x10*3/uL Absolute Nucleated RBC (0.0-0.012) X10*3/uL Nucleated RBC % (auto) (0.0-0.2) /100WBC Sodium (135-145) mmol/L Potassium (3.3-5.1) mmol/L Chloride (96-108) mmol/L Carbon Dioxide (22-29) mmol/L Anion Gap (12-20) BUN (9-16) mg/dL Creatinine (0.5-1.4) mg/dL Estim Creat Clear Calc Estimated GFR POC Glucose (60-115) mg/dL Random Glucose (60-115) mg/dL Lactic Acid (0.5-2.0) mmol/L Calcium (8.4-10.2) mg/dL Magnesium (1.6-2.6) mg/dL Total Bilirubin (0.0-1.0) mg/dL Direct Bilirubin (0.0-0.5) mg/dL AST (5-31) U/L ALT (0-31) U/L Alkaline Phosphatase (39-117) U/L Troponin I High Sens (<3.5-17.0) ng/L B-Natriuretic Peptide (<100) pg/mL Total Protein (6.5-8.0) g/dL Albumin (3.5-5.0) g/dL Valproic Acid 39.9 L (50.0-100.0) mcg/mL Influenza Type A (PCR) NEGATIVE (Negative) Influenza Type B (PCR) NEGATIVE (Negative) RSV RNA Qual (PCR) NEGATIVE (Negative) SARS-CoV-2 RNA (RT-PCR) NEGATIVE (Negative) Independent Interpretation I performed an independent interpretation of an: EKG and Plain X-Ray (no pneumonia) Interpretation: Rate: 81 Rhythm: NSR [place]: normal Normal P waves. Normal [place]. RBBB ST T wave : no BRANDON, inverted t waves V1-V3, nonspecific ST T wave changes inf leads qTC: 520 prior studies: changed from 2021 The study has been interpreted contemporaneously by me. . Radiology Impression Discussion of test interpretation with radiology: I have reviewed the radiologist's reading. Independent Historian Clinical information obtained from an independent historian. History obtained from or confirmed by: EMS External Record Review External record reviewed: Inpatient record Discharge Plan Discharge Clinical Impression: COPD with acute exacerbation, Hypoxia CHF (congestive heart failure) Qualifiers: Heart failure type: unspecified Heart failure chronicity: acute on chronic Qualified Code(s): I50.9 - Heart failure, unspecified Patient Disposition: Admitted As Inpatient Prescriptions: No Action nitrofurantoin monohyd/m-cryst [Macrobid] 100 mg capsule 100 mg PO Q12H 5 Days Qty: 10 0RF Rx Instructions: must administer with a meal/food perphenazine 8 mg Tablet 8 mg PO BID 30 Days Qty: 60 0RF oxybutynin chloride 5 mg Tablet Extended Release 24 Hr 5 mg PO BEDTIME 30 Days Qty: 30 0RF furosemide 40 mg tablet 40 mg PO DAILY 30 Days Qty: 30 0RF atorvastatin 80 mg Tablet 80 mg PO BEDTIME 30 Days Qty: 30 0RF benztropine 0.5 mg Tablet 0.5 mg PO BID 30 Days Qty: 60 0RF famotidine 10 mg Tablet 10 mg PO BID PRN (Reason: Indigestion) 30 Days Qty: 60 0RF hydroxyzine pamoate [Vistaril] 50 mg Capsule 50 mg PO TID PRN (Reason: Anxiety) 30 Days Qty: 90 0RF diltiazem HCl 360 mg Capsule,Extended Release 24 Hr 360 mg PO DAILY 30 Days Qty: 30 0RF baclofen 10 mg Tablet 10 mg PO BID 30 Days Qty: 60 0RF ferrous sulfate 325 mg (65 mg iron) Tablet 325 mg PO DAILY 30 Days Qty: 30 0RF levothyroxine 125 mcg Tablet 125 mcg PO DAILY 30 Days Qty: 30 0RF clotrimazole-betamethasone 1-0.05 % cream 1 appl topical BID 30 Days Qty: 45 0RF divalproex 500 mg tablet extended release 24 hr 500 mg PO DAILY 30 Days Qty: 30 0RF divalproex 500 mg Tablet Extended Release 24 Hr 1,000 mg PO BEDTIME 30 Days Qty: 60 0RF aspirin 81 mg Tablet,Chewable 81 mg PO DAILY 30 Days Qty: 30 0RF albuterol sulfate 90 mcg/actuation Hfa Aerosol Inhaler 2 puff INHALATION Q4H 30 Days Qty: 6.7 0RF colchicine 0.6 mg Tablet 0.6 mg PO BID 30 Days Qty: 60 0RF aripiprazole [Abilify] 30 mg Tablet 30 mg PO DAILY 30 Days Qty: 30 0RF budesonide-formoterol [Symbicort] 80-4.5 mcg/actuation Hfa Aerosol Inhaler 2 puff INHALATION BID 30 Days Qty: 10.2 0RF lactulose 10 gram/15 mL (15 mL) Solution 15 ml PO DAILY 30 Days Qty: 450 0RF multivitamin [Daily-Lisa] Tablet 1 tab PO DAILY 30 Days Qty: 30 0RF trazodone 50 mg tablet 50 mg PO BEDTIME PRN (Reason: insomnia) 30 Days Qty: 30 0RF polyethylene glycol 3350 17 gram Powder In Packet 17 g PO DAILY 30 Days Qty: 30 0RF metoprolol succinate 50 mg tablet extended release 24 hr 50 mg PO BID 30 Days Qty: 60 0RF prazosin 1 mg Capsule 1 mg PO BID 30 Days Qty: 60 0RF sennosides-docusate sodium [Senna Plus] 8.6-50 mg tablet 1 tab PO DAILY PRN (Reason: constipation) 30 Days Qty: 30 0RF loperamide 2 mg Tablet 2 mg PO Q6H PRN (Reason: Diarrhea) 30 Days Qty: 60 0RF venlafaxine 150 mg capsule,extended release 24hr 150 mg PO DAILY 30 Days Qty: 30 0RF nicotine 21 mg/24 hr patch 24 hour 1 patch topical DAILY PRN (Reason: nicotine cravings) 28 Days Qty: 28 0RF Rx Instructions: remove at bedtime sitagliptin phosphate 100 mg Tablet 100 mg PO DAILY 30 Days Qty: 30 0RF fosfomycin tromethamine 3 gram packet 1 packet PO ONCE 1 Days Qty: 1 0RF
[2023-05-08 13:21] LABS: Glucose, Whole Blood 113 mg/dL (60-115)
[2023-05-08] MEDS: Albuterol Sulfate 2.5 MG, Albuterol/Iprat 2.5/0.5MG 3 ML 3 ML INHALE (13:23)
[2023-05-08] MEDS: methylPREDNISolone Sod Succ 125 MG/2 ML VIAL 60 MG IVPUSH (13:34)
--- NOTE | 2023-05-08 13:41 | PC.NURSE ---
Patient comes to ED via ambulance due to dyspnea and cough that has worsened the last couple of days. Patient is alert and oriented. skin pwd, lung sounds junky throughout. Patient placed on 2l via tariq. Patient is currently receiving nebulizer therapy and is sating at 93%. vss stable at this time, normal sinus on monitor. patient has +1 BLE edema, scratches noted on BUE, staff from [place] at bedside.
[2023-05-08 14:56] LABS: MANUAL DIFF FLAG NO
--- NOTE | 2023-05-08 14:57 | MHC.EDTECH ---
This pct has drawn labs on patient eventhough i was successful in retrieving some of the labs i was unable to get all labs, will attempt again soon. RN Aware
[2023-05-08 14:58] LABS: Basophils Absolute Auto 0.1 X10*3/uL (0.0-0.2); Basophils Percent Auto 1.1 % (0-2); Eosinophils Absolute Auto 0.5 X10*3/uL (0.0-0.4); Eosinophils Percent Auto 4.7 % (0-4); Hematocrit 31.2 % (37.0-47.0); Hemoglobin 9.5 g/dl (12.0-16.0); Imm Gran Abs Auto 0.03 X10*3/uL (0.00-0.03); Imm Gran Pct Auto 0.3 % (0.0-0.4); Lymphocytes Absolute Auto 1.2 X10*3/uL (1.2-4.9); Lymphocytes Percent Auto 11.6 % (20-40); Mean Corpuscular HGB Conc 30.4 g/dl (31.0-35.0); Mean Corpuscular Hemoglobin 26.2 pg (27.0-33.0); Mean Platelet Volume 11.2 fL (9.4-12.3); Monocytes Percent Auto 8.9 % (2-11); Neutrophils Absolute Auto 7.9 x10*3/uL (2.0-8.3); Neutrophils Percent Auto 73.4 % (45-73); Platelet Count 235 X10*3/uL (160-400); Red Blood Count 3.63 X10*6/uL (4.20-5.50); Red Cell Distribution Width 17.6 % (11.0-16.0); White Blood Count 10.7 X10*3/uL (4.8-10.8)
--- NOTE | 2023-05-08 15:06 | PC.NURSE ---
delay in blood work because pt is a hard stick, awaiting second set of blood coutures to be able to hang the abx
[2023-05-08] MEDS: Magnesium Sulfate/H2O 2 GM/50 ML PIGGYBACK IV (15:10)
[2023-05-08 15:14] LABS: Lactic Acid 1.8 mmol/L (0.5-2.0)
[2023-05-08 15:25] LABS: B Type Natriuretic Peptide 440 pg/mL (<100)
[2023-05-08 15:27] LABS: Troponin-I High Sensitivity < 2.7 ng/L (<3.5-17.0)
[2023-05-08 15:28] LABS: Alanine Aminotransferase 7 U/L (0-31); Albumin Level 3.6 g/dL (3.5-5.0); Alkaline Phosphatase 88 U/L (39-117); Anion Gap 14 (12-20); Aspartate Amino Transferase 11 U/L (5-31); Bilirubin Direct 0.2 mg/dL (0.0-0.5); Blood Urea Nitrogen 13 mg/dL (9-16); Calcium 9.3 mg/dL (8.4-10.2); Carbon Dioxide 24 mmol/L (22-29); Chloride 104 mmol/L (96-108); Creatinine Clr Calc Pharmacy 93.7; Estimated Glomerular Filt Rate > 60; Glucose Random 121 mg/dL (60-115); Magnesium 1.9 mg/dL (1.6-2.6); Potassium 4.2 mmol/L (3.3-5.1); Sodium 138 mmol/L (135-145); Total Protein 7.6 g/dL (6.5-8.0)
[2023-05-08 15:38] LABS: Bilirubin Total 0.3 mg/dL (0.0-1.0)
[2023-05-08 15:47] LABS: Valproate 39.9 mcg/mL (50.0-100.0)
[2023-05-08] MEDS: Doxycycline Hyclate 100 MG in 0.9 % Sodium Chloride 250 ML 166.67 MG IV (15:55)
[2023-05-08] MEDS: Furosemide 40 MG/4 ML VIAL IVPUSH (15:57)
[2023-05-08 16:11] LABS: Influenza A PCR NEGATIVE (Negative); Influenza B PCR NEGATIVE (Negative); Resp Syncy Virus RNA Qual PCR NEGATIVE (Negative); SARS COV2 PCR INHOUSE NEGATIVE (Negative)
--- NOTE | 2023-05-08 16:45 | PM.IMHP ---
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 Patient presented from [facility] where she has been admitted for depression. Patient reports about a 1 week prior to presentation symptoms began with upper respiratory tract infection. Symptoms continued to progress with cough and shortness of breath to the point where she was noted to be hypoxic to the low 80s on room air on day of presentation so sent to the ED. In ED viral swab was negative. Patient was hypoxic requiring 2 L. elevated BNP, chest x-ray with central vascular prominence. Patient denies chest pain, fever, abdominal pain, nausea vomiting or diarrhea. Review of Systems Review of Systems: Yes all other systems are reviewed and are negative [facility] Medical History Kidney disease Bipolar 1 disorder HTN (hypertension) Diabetes Social History Household Members: None Household Members Other:: 3 other people live in retirement Housing: Homeless Housing Other:: residential Do you presently have visiting nurse or other home services: No Alcohol intake: never Comment: abimael chadwick Patient Tobacco Use Status: Former Tobacco user Cigarette Packs Per Day: 0.5 Cigarettes Per Day: 10.0 Smoked in Last 30 Days: No Use of substances other than those prescribed or required for medical reasons: No Advance Directives: Yes Advance Directives on File: Yes Advance Directives Date on File: 11/25/19 Patient : No service: No (Px. was asleep when called for this assessment.) Sexual orientation: Px. was asleep when called for this assessment. Meds Allergies Allergy/AdvReac Type Severity Reaction Status Date / Time Penicillins Allergy Mild unkown Verified 05/08/23 13:12 Sulfa (Sulfonamide Allergy Mild unknown Verified 05/08/23 13:12 Antibiotics) Active Medications: Current Medications Albuterol/Ipratropium (Albuterol/Iprat 2.5/0.5mg 3 Ml Ampul.Neb) 3 ml INHALE RQ4H WHILE AWAKE JUVENAL Enoxaparin Sodium (Enoxaparin Sodium 40 Mg/0.4 Ml Syringe) 40 mg SUBCUT Q24H JUVENAL Furosemide (Furosemide 40 Mg/4 Ml Vial) 40 mg IVPUSH BID@0900,1800 JUVENAL; Protocol Methylprednisolone Sodium Succinate (Methylprednisolone Sod Succ 40 Mg/Ml Vial) 40 mg IVPUSH Q12H [facility] Sodium Chloride (0.9 % Sodium Chloride Flush 3 Ml Syringe) 3 ml IVFLUSH QSHIFT JUVENAL Home Medications Medication Instructions Recorded Confirmed Last Taken Type atorvastatin 40 mg tablet 40 mg PO BEDTIME 05/08/23 05/08/23 Unknown History ferrous sulfate 325 mg (65 mg 325 mg PO BIDWM 05/08/23 05/08/23 Unknown History iron) tablet lurasidone 40 mg tablet (Latuda) 40 mg PO DAILY 05/08/23 05/08/23 Unknown History metoprolol succinate 25 mg 25 mg PO DAILY 05/08/23 05/08/23 Unknown History tablet,extended release 24 hr pantoprazole 20 mg tablet,delayed 20 mg PO DAILY 05/08/23 05/08/23 Unknown History release perphenazine 8 mg tablet 8 mg PO TID 05/08/23 05/08/23 Unknown History potassium chloride 20 mEq oral 20 meq PO BID 05/08/23 05/08/23 Unknown History packet prazosin 1 mg capsule 1 mg PO BEDTIME 05/08/23 05/08/23 Unknown History Physical Exam Vital Signs and Narrative: Vital Signs: Last Vital Signs Temp 98.4 F 05/08/23 13:13 Pulse 73 05/08/23 15:14 Resp 20 05/08/23 15:14 BP 147/68 H 05/08/23 15:14 Pulse Ox 96 05/08/23 15:14 O2 Del Method Large Bore Nasal Cannula 05/08/23 15:14 O2 Flow Rate 2 05/08/23 15:14 BMI result Body Mass Index 42.3 General: AO X 3, no acute distress Resp: Crackles and wheezes bilateral, no accessory muscles used CVS: S1,S2,RRR, 1-2 + edema GI: soft, non tender, non distended Neuro: motor grossly intact, alert Psych: appropriate affect, appropriate insight Results Labs 05/08/23 14:51 05/08/23 14:51 Labs: Laboratory Results - last 24 hr 05/08/23 05/08/23 05/08/23 13:16 14:50 14:51 MCV 86.0 MCH 26.2 L MCHC 30.4 L RDW 17.6 H Plt Count 235 D MPV 11.2 Immature Gran % (Auto) 0.3 Neut % (Auto) 73.4 H Lymph % (Auto) 11.6 L [place] % (Auto) 8.9 Eos % (Auto) 4.7 H Baso % (Auto) 1.1 Lymph # (Auto) 1.2 [place] # (Auto) 1.0 Eos # (Auto) 0.5 H Baso # (Auto) 0.1 Abs Immat Gran (auto) 0.03 Absolute Neuts (auto) 7.9 Absolute Nucleated RBC 0.000 Nucleated RBC % (auto) 0.0 Anion Gap 14 Estim Creat Clear Calc 93.7 Estimated GFR > 60 POC Glucose 113 Random Glucose 121 H Lactic Acid 1.8 Calcium 9.3 Magnesium 1.9 Total Bilirubin 0.3 Direct Bilirubin 0.2 AST 11 ALT 7 Alkaline Phosphatase 88 Troponin I High Sens < 2.7 B-Natriuretic Peptide 440 H Total Protein 7.6 Albumin 3.6 Valproic Acid Influenza Type A (PCR) Influenza Type B (PCR) RSV RNA Qual (PCR) SARS-CoV-2 RNA (RT-PCR) 05/08/23 15:24 MCV MCH MCHC RDW Plt Count MPV Immature Gran % (Auto) Neut % (Auto) Lymph % (Auto) [place] % (Auto) Eos % (Auto) Baso % (Auto) Lymph # (Auto) [place] # (Auto) Eos # (Auto) Baso # (Auto) Abs Immat Gran (auto) Absolute Neuts (auto) Absolute Nucleated RBC Nucleated RBC % (auto) Anion Gap Estim Creat Clear Calc Estimated GFR POC Glucose Random Glucose Lactic Acid Calcium Magnesium Total Bilirubin Direct Bilirubin AST ALT Alkaline Phosphatase Troponin I High Sens B-Natriuretic Peptide Total Protein Albumin Valproic Acid 39.9 L Influenza Type A (PCR) NEGATIVE Influenza Type B (PCR) NEGATIVE RSV RNA Qual (PCR) NEGATIVE SARS-CoV-2 RNA (RT-PCR) NEGATIVE Imaging Radiologist's Impressions: Impressions Chest X-Ray 05/08/23 13:56 IMPRESSION: Mild cardiomegaly with central vascular prominence. No acute intrathoracic disease. Assessment and Plan (1) Hypoxia: Status: Acute Plan 57F PMH morbid obesity, chronic diasotlic chf, copd, schizoaffective disorder, ptsd, adhd, gerd, hypothryoid, htn, hld, presented with sob Acute hypoxic respiratory failure secondary to acute on chronic diastolic CHF and COPD with acute decompensation likely due to unspecified upper respiratory tract infection IV Lasix, monitor electrolytes IV steroids, DuoNebs Wean O2 as tolerated Morbid obesity Weight loss recommended Schizoaffective disorder with suicidal ideation Continue sitter Continue Depakote, venlafaxine Will need care team eval prior to discharge Reported history of diabetes Does not appear to be hyperglycemic or on medications, check A1c Reported history of CKD 3 Appears to have normal GFR Hypothyroid Synthroid Hypertension Prazosin, metoprolol Hyperlipidemia Statin DVT prophylaxis with Lovenox Full Code Patient with significant CHF and COPD requiring IV diuresis and O2 supplementation. Due to morbid obesity and hypertension at high risk for further decompensation, therefore, expected require at least 2 midnights inpatient. Quality Stroke Does the patient have a stroke diagnosis?: No VTE Prior VTE?: No VTE Risk Level:: Medical - moderate - high VTE Device Contraindication: Treatment Not Indicated VTE Drug Contraindication: N/A - Med Ordered
--- NOTE | 2023-05-08 17:03 | PHA.MEDREC ---
Pharmacy Consult ? Medication Reconciliation Pharmacy has completed the medication reconciliation. Patient from [facility] with med list. Kimberly Bentley, SusiD
[2023-05-08 17:11] LABS: Estimated Average Glucose 111 mg/dL; Hemoglobin A1c % 5.5 % (<6.0)
--- NOTE | 2023-05-08 17:43 | PC.NURSE ---
Called [facility] to give nurse to nurse report about patient's treatment plan.
--- NOTE | 2023-05-08 19:19 | PC.NURSE ---
Addendum entered by Mireya Mock RN 05/09/23 06:32: 05/08/2023-1936 Dr.Gomez Marquez notified and order for Haldol IM 5mg. Dr.Gomez Marquez came to bedside and observed pt behavior. Medication administered as ordered. Sitter remains at bedside unable to take vitals d/t pt refusing. Pt in bed safe at this time. Original Note: Assumed care of pt at 1900. Dose ordered for IV lasix and discussed with because pt received dose at 1559. Hold per MD. Pt pulled out IV and leads trying to get out of bed. PT got back in to bed and given supper tray. Refusing to allow this RN to put tele leads on or put in another iv at this time. Pt states I am dying and I want to go home . P encouraged multiple times but refusing. notified.
[2023-05-08] MEDS: Haloperidol Lactate 5 MG/ML VIAL IM (19:46)
[2023-05-08] MEDS: Albuterol/Iprat 2.5/0.5MG 3 ML AMPUL.NEB INHALE (20:02)
--- NOTE | 2023-05-08 22:03 | PC.NURSE ---
Addendum entered by Mireya Mock RN 05/09/23 06:38: Pt did take PO meds late but still refusing to place IV or tele monitor. Wisdom cannula @1L in place and O2 sat monitor 92-95%. Original Note: Pt has been in bed resting quietly with sitter at bedside. Easily arousable but still refusing to take medications or answer questions. Pt is no longer trying to get out of bed but also still refusing to allow an IV at this time.
[2023-05-08] MEDS: Prazosin HCL 1 MG CAPSULE PO (23:04)
[2023-05-08] MEDS: Perphenazine 8 MG TABLET PO (23:05)
[2023-05-08] MEDS: Potassium Chloride Packet 20 MEQ PACKET PO (23:05)
[2023-05-08] MEDS: Divalproex Sodium ER 500 MG TAB.ER.24H 1000 MG PO (23:05)
[2023-05-08] MEDS: Benztropine Mesylate 0.5 MG TABLET PO (23:05)
[2023-05-08] MEDS: Atorvastatin Calcium 40 MG TABLET PO (23:05)
[2023-05-08] MEDS: Famotidine 20 MG TABLET PO (23:06)
[2023-05-09] VITALS (11 sets, daily range): BP systolic 121–134; BP diastolic 52–77; PULSE 63–84; RESP 14–20; TEMP 36.2–37; O2SAT 87–98; BMI 40.5
[2023-05-09 05:16] LABS: Hematocrit 28.9 % (37.0-47.0); Hemoglobin 8.9 g/dl (12.0-16.0); Mean Corpuscular HGB Conc 30.8 g/dl (31.0-35.0); Mean Corpuscular Volume 84.5 fL (80.0-98.0); Mean Platelet Volume 10.9 fL (9.4-12.3); Platelet Count 238 X10*3/uL (160-400); Red Blood Count 3.42 X10*6/uL (4.20-5.50); Red Cell Distribution Width 17.7 % (11.0-16.0)
[2023-05-09 05:32] LABS: Anion Gap 13 (12-20); Blood Urea Nitrogen 20 mg/dL (9-16); Calcium 9.1 mg/dL (8.4-10.2); Carbon Dioxide 26 mmol/L (22-29); Chloride 103 mmol/L (96-108); Creatinine Clr Calc Pharmacy 85.9; Estimated Glomerular Filt Rate 60; Glucose Fasting 176 mg/dL (60-99); Potassium 4.3 mmol/L (3.3-5.1); Sodium 138 mmol/L (135-145)
[2023-05-09] MEDS: Omeprazole 20 MG CAPSULE.DR PO (06:20)
[2023-05-09] MEDS: Levothyroxine Sodium 125 MCG TABLET PO (06:20)
[2023-05-09] MEDS: Enoxaparin Sodium 40 MG/0.4 ML SYRINGE SUBCUT (06:20)
[2023-05-09] MEDS: Albuterol/Iprat 2.5/0.5MG 3 ML AMPUL.NEB INHALE ×3 (08:44→15:46)
--- NOTE | 2023-05-09 09:05 | HO.PM.IMPN ---
Subjective Subjective Date of Service: 05/09/23 Interval History: sob improving Physical Exam Vital Signs: Vital Signs: Last Vital Signs Temp 98.2 F 05/09/23 05:37 Pulse 66 05/09/23 08:45 Resp 16 05/09/23 08:45 BP 133/63 05/09/23 05:37 Pulse Ox 94 05/09/23 05:37 O2 Del Method Room Air 05/09/23 05:37 O2 Flow Rate 1 05/08/23 21:55 BMI result Body Mass Index 42.3 General: AO X 3, no acute distress Resp: diffuse wheezing bilateral, no accessory muscles used CVS: S1,S2,RRR, 1+ bilateral edema GI: soft, non tender, non distended Neuro: motor grossly intact, alert Objective Data Active Medications Albuterol/Ipratropium (Albuterol/Iprat 2.5/0.5mg 3 Ml Ampul.Neb) 3 ml INHALE RQ4H WHILE AWAKE [facility] Last Admin: 05/09/23 08:44 Dose: 3 ml Documented By: STEPHENIE Atorvastatin Calcium (Atorvastatin Calcium 40 Mg Tablet) 40 mg PO BEDTIME [facility] Last Admin: 05/08/23 23:05 Dose: 40 mg Documented By: BREANNA Benztropine Mesylate (Benztropine Mesylate 0.5 Mg Tablet) 0.5 mg PO BID [facility] Last Admin: 05/08/23 23:05 Dose: 0.5 mg Documented By: BREANNA Divalproex Sodium (Divalproex Sodium Er 500 Mg Tab.Er.24h) 1,000 mg PO BEDTIME [facility] Last Admin: 05/08/23 23:05 Dose: 1,000 mg Documented By: BREANNA Enoxaparin Sodium (Enoxaparin Sodium 40 Mg/0.4 Ml Syringe) 40 mg SUBCUT Q24H [facility] Last Admin: 05/09/23 06:20 Dose: 40 mg Documented By: BREANNA Famotidine (Famotidine 20 Mg Tablet) 20 mg PO BID [facility] Last Admin: 05/08/23 23:06 Dose: 20 mg Documented By: BREANNA Ferrous Sulfate (Ferrous Sulfate 324 Mg Tablet.Dr) 324 mg PO BIDWM [facility] Furosemide (Furosemide 40 Mg/4 Ml Vial) 40 mg IVPUSH BID@0900,1800 [facility]; Protocol Last Admin: 05/08/23 19:19 Dose: Not Given Documented By: BREANNA Non-Admin Reason: Physician Held Med Levothyroxine Sodium (Levothyroxine Sodium 125 Mcg Tablet) 125 mcg PO DAILY@0600 [facility] Last Admin: 05/09/23 06:20 Dose: 125 mcg Documented By: BREANNA Lurasidone HCl (Lurasidone Hcl 40 Mg Tablet) 40 mg PO DAILY [facility] Methylprednisolone Sodium Succinate (Methylprednisolone Sod Succ 40 Mg/Ml Vial) 40 mg IVPUSH Q12H [facility] Metoprolol Succinate (Metoprolol Succinate Er 25 Mg Tab.Er.24h) 25 mg PO DAILY [facility]; Protocol Omeprazole (Omeprazole 20 Mg Capsule.Dr) 20 mg PO DAILY@0630 [facility] Last Admin: 05/09/23 06:20 Dose: 20 mg Documented By: BREANNA Perphenazine (Perphenazine 8 Mg Tablet) 8 mg PO TID [facility] Last Admin: 05/08/23 23:05 Dose: 8 mg Documented By: BREANNA Potassium Chloride (Potassium Chloride Packet 20 Meq Packet) 20 meq PO BID [facility] Last Admin: 05/08/23 23:05 Dose: 20 meq Documented By: BREANNA Prazosin HCl (Prazosin Hcl 1 Mg Capsule) 1 mg PO BEDTIME [facility]; Protocol Last Admin: 05/08/23 23:04 Dose: 1 mg Documented By: BREANNA Sodium Chloride (0.9 % Sodium Chloride Flush 3 Ml Syringe) 3 ml IVFLUSH QSHIFT [facility] Last Admin: 05/08/23 23:39 Dose: Not Given Documented By: BREANNA Non-Admin Reason: No Access Trazodone HCl (Trazodone Hcl 50 Mg Tablet) 50 mg PO BEDTIME PRN PRN Reason: insomnia Venlafaxine HCl (Venlafaxine Hcl Er 150 Mg Cap.Er.24h) 150 mg PO DAILY [facility] Labs 05/09/23 04:39 05/09/23 04:39 Labs: Laboratory Results - last 24 hr 05/08/23 05/08/23 05/08/23 13:16 14:50 14:51 MCV 86.0 MCH 26.2 L MCHC 30.4 L RDW 17.6 H Plt Count 235 D MPV 11.2 Immature Gran % (Auto) 0.3 Neut % (Auto) 73.4 H Lymph % (Auto) 11.6 L [place] % (Auto) 8.9 Eos % (Auto) 4.7 H Baso % (Auto) 1.1 Lymph # (Auto) 1.2 [place] # (Auto) 1.0 Eos # (Auto) 0.5 H Baso # (Auto) 0.1 Abs Immat Gran (auto) 0.03 Absolute Neuts (auto) 7.9 Absolute Nucleated RBC 0.000 Nucleated RBC % (auto) 0.0 Anion Gap 14 Estim Creat Clear Calc 93.7 Estimated GFR > 60 POC Glucose 113 Random Glucose 121 H Fasting Glucose Estimat Average Glucose 111 Hemoglobin A1c % 5.5 Lactic Acid 1.8 Calcium 9.3 Magnesium 1.9 Total Bilirubin 0.3 Direct Bilirubin 0.2 AST 11 ALT 7 Alkaline Phosphatase 88 Troponin I High Sens < 2.7 B-Natriuretic Peptide 440 H Total Protein 7.6 Albumin 3.6 Valproic Acid Influenza Type A (PCR) Influenza Type B (PCR) RSV RNA Qual (PCR) SARS-CoV-2 RNA (RT-PCR) 05/08/23 05/09/23 15:24 04:39 MCV 84.5 MCH 26.0 L MCHC 30.8 L RDW 17.7 H Plt Count 238 MPV 10.9 Immature Gran % (Auto) Neut % (Auto) Lymph % (Auto) [place] % (Auto) Eos % (Auto) Baso % (Auto) Lymph # (Auto) [place] # (Auto) Eos # (Auto) Baso # (Auto) Abs Immat Gran (auto) Absolute Neuts (auto) Absolute Nucleated RBC 0.000 Nucleated RBC % (auto) 0.0 Anion Gap 13 Estim Creat Clear Calc 85.9 Estimated GFR 60 POC Glucose Random Glucose Fasting Glucose 176 H Estimat Average Glucose Hemoglobin A1c % Lactic Acid Calcium 9.1 Magnesium Total Bilirubin Direct Bilirubin AST ALT Alkaline Phosphatase Troponin I High Sens B-Natriuretic Peptide Total Protein Albumin Valproic Acid 39.9 L Influenza Type A (PCR) NEGATIVE Influenza Type B (PCR) NEGATIVE RSV RNA Qual (PCR) NEGATIVE SARS-CoV-2 RNA (RT-PCR) NEGATIVE Assessment and Plan (1) COPD with acute exacerbation: Status: Acute Plan 57F PMH morbid obesity, chronic diasotlic chf, copd, schizoaffective disorder, ptsd, adhd, gerd, hypothryoid, htn, hld, presented with sob Acute hypoxic respiratory failure secondary to acute on chronic diastolic CHF and COPD with acute decompensation likely due to unspecified upper respiratory tract infection continue IV Lasix, monitor electrolytes IV steroids, DuoNebs now on room air Morbid obesity Weight loss recommended Schizoaffective disorder with suicidal ideation Continue sitter Continue Depakote, venlafaxine Will need care team eval prior to discharge Reported history of diabetes a1c 5.5 - does not appear to have DM Reported history of CKD 3 Appears to have normal GFR Hypothyroid Synthroid Hypertension Prazosin, metoprolol Hyperlipidemia Statin DVT prophylaxis with Lovenox Full Code reason for continued hospitalization:still diffusely wheezing and some edema, would continue iv lasix, iv steroids and ATC nebs for another day. Quality Stroke Does the patient have a stroke diagnosis?: No VTE Prior VTE?: No VTE Risk Level:: Medical - moderate - high VTE Device Contraindication: Treatment Not Indicated VTE Drug Contraindication: N/A - Med Ordered
[2023-05-09] MEDS: Famotidine 20 MG TABLET PO (09:49)
[2023-05-09] MEDS: Ferrous Sulfate 324 MG TABLET.DR PO (09:50)
[2023-05-09] MEDS: Venlafaxine HCl ER 150 MG CAP.ER.24H PO (09:50)
[2023-05-09] MEDS: Metoprolol Succinate ER 25 MG TAB.ER.24H PO (09:51)
[2023-05-09] MEDS: methylPREDNISolone Sod Succ 40 MG/ML VIAL IVPUSH (09:52)
[2023-05-09] MEDS: 0.9 % Sodium Chloride Flush 3 ML SYRINGE IVFLUSH ×2 (09:52→15:20)
[2023-05-09] MEDS: Furosemide 40 MG/4 ML VIAL IVPUSH (09:55)
--- NOTE | 2023-05-09 09:59 | PC.NURSE ---
Pt noted to desat to 87% on RA, pt placed back on 1L O2 via NC and provider alerted.
[2023-05-09] MEDS: Benztropine Mesylate 0.5 MG TABLET PO (11:03)
[2023-05-09] MEDS: Perphenazine 8 MG TABLET PO ×2 (11:03→15:21)
[2023-05-09] MEDS: Lurasidone HCl 40 MG TABLET PO (11:03)
--- NOTE | 2023-05-09 14:04 | MHC.CM.PN ---
IMM DELIVERED. 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 USES A WHEELCHAIR AND NEEDS ASSISTANCE W/ ADL'S. [place] [facility] [place] AT [facility], WHERE SHE REPORTS SHE HAS BEEN FOR 1 MONTH AND WAS TOLD SHE WOULD BE STAYING UP TO 6 MONTHS. [facility] STATES PATIENT WAS DC'D WHEN [place] [facility] [place] PCP RENZO ROSENBERG HCP ON FILE AND VERIFIED, AGENT IS BROTHER MAXX DP: PATIENT'S GOAL IS TO RETURN TO INPATIENT PSYCH AT [facility]. WILL NEED CARE TEAM EVAL. CM WILL CONTINUE TO FOLLOW.
--- NOTE | 2023-05-09 18:30 | PC.NURSE ---
Pt refusing medications because shes not on a regular diet . Md Goel notified and diet order changed still refusing meds . will attempt to give and pass info onto oncoming shift
--- NOTE | 2023-05-09 21:35 | PC.NURSE ---
Pt refusing all pm meds also refusing to wear oxygen o2sat 92-93% on RA.
[2023-05-10] VITALS (8 sets, daily range): BP systolic 133–139; BP diastolic 60–64; PULSE 63–77; RESP 16–18; TEMP 36.1–36.3; O2SAT 92–96
[2023-05-10] MEDS: Albuterol/Iprat 2.5/0.5MG 3 ML AMPUL.NEB INHALE ×4 (07:26→19:11)
[2023-05-10] MEDS: Furosemide 40 MG/4 ML VIAL IVPUSH ×2 (08:45→17:51)
[2023-05-10] MEDS: methylPREDNISolone Sod Succ 40 MG/ML VIAL IVPUSH ×2 (08:45→20:48)
[2023-05-10] MEDS: Metoprolol Succinate ER 25 MG TAB.ER.24H PO (08:46)
[2023-05-10] MEDS: Benztropine Mesylate 0.5 MG TABLET PO ×2 (08:46→20:47)
[2023-05-10] MEDS: Venlafaxine HCl ER 150 MG CAP.ER.24H PO (08:46)
[2023-05-10] MEDS: Perphenazine 8 MG TABLET PO ×3 (08:46→20:48)
[2023-05-10] MEDS: Famotidine 20 MG TABLET PO ×2 (08:46→20:48)
[2023-05-10] MEDS: Lurasidone HCl 40 MG TABLET PO (08:47)
[2023-05-10] MEDS: Ferrous Sulfate 324 MG TABLET.DR PO ×2 (08:47→17:51)
[2023-05-10] MEDS: 0.9 % Sodium Chloride Flush 3 ML SYRINGE IVFLUSH ×3 (08:51→20:48)
--- NOTE | 2023-05-10 08:58 | P.PNIM_ITS ---
Subjective Subjective Date of Service: 05/10/23 Interval History: sob improving Physical Exam 2 Vital Signs: Vital Signs: Last Vital Signs Temp 96.9 F 05/10/23 07:08 Pulse 68 05/10/23 07:29 Resp 18 05/10/23 07:29 BP 133/60 05/10/23 07:08 Pulse Ox 92 05/10/23 07:08 O2 Del Method Nasal Cannula 05/10/23 07:08 O2 Flow Rate 2 05/10/23 07:08 BMI result Body Mass Index 40.5 General: AO X 3, no acute distress Resp: diffuse wheezing bilateral, no accessory muscles used CVS: S1,S2,RRR, 1+ bilateral edema GI: soft, non tender, non distended Neuro: motor grossly intact, alert Objective Data Active Medications Albuterol/Ipratropium (Albuterol/Iprat 2.5/0.5mg 3 Ml Ampul.Neb) 3 ml INHALE RQ4H WHILE AWAKE [facility] Last Admin: 05/10/23 07:26 Dose: 3 ml Documented By: GITA Atorvastatin Calcium (Atorvastatin Calcium 40 Mg Tablet) 40 mg PO BEDTIME [facility] Last Admin: 05/09/23 20:36 Dose: Not Given Documented By: ANDREW Non-Admin Reason: Patient Refused Benztropine Mesylate (Benztropine Mesylate 0.5 Mg Tablet) 0.5 mg PO BID [facility] Last Admin: 05/10/23 08:46 Dose: 0.5 mg Documented By: DANNY Divalproex Sodium (Divalproex Sodium Er 500 Mg Tab.Er.24h) 1,000 mg PO BEDTIME [facility] Last Admin: 05/09/23 20:36 Dose: Not Given Documented By: ANDREW Non-Admin Reason: Patient Refused Enoxaparin Sodium (Enoxaparin Sodium 40 Mg/0.4 Ml Syringe) 40 mg SUBCUT Q24H [facility] Last Admin: 05/10/23 05:30 Dose: Not Given Documented By: ANDREW Non-Admin Reason: Patient Refused Famotidine (Famotidine 20 Mg Tablet) 20 mg PO BID [facility] Last Admin: 05/10/23 08:46 Dose: 20 mg Documented By: DANNY Ferrous Sulfate (Ferrous Sulfate 324 Mg Tablet.) 324 mg PO BIDWM [facility] Last Admin: 05/10/23 08:47 Dose: 324 mg Documented By: DANNY Furosemide (Furosemide 40 Mg/4 Ml Vial) 40 mg IVPUSH BID@0900,1800 [facility]; Protocol Last Admin: 05/10/23 08:45 Dose: 40 mg Documented By: DANNY Levothyroxine Sodium (Levothyroxine Sodium 125 Mcg Tablet) 125 mcg PO DAILY@0600 [facility] Last Admin: 05/10/23 05:30 Dose: Not Given Documented By: ANDREW Non-Admin Reason: Patient Refused Lurasidone HCl (Lurasidone Hcl 40 Mg Tablet) 40 mg PO DAILY [facility] Last Admin: 05/10/23 08:47 Dose: 40 mg Documented By: DANNY Methylprednisolone Sodium Succinate (Methylprednisolone Sod Succ 40 Mg/Ml Vial) 40 mg IVPUSH Q12H [facility] Last Admin: 05/10/23 08:45 Dose: 40 mg Documented By: DANNY Metoprolol Succinate (Metoprolol Succinate Er 25 Mg Tab.Er.24h) 25 mg PO DAILY [facility]; Protocol Last Admin: 05/10/23 08:46 Dose: 25 mg Documented By: DANNY Omeprazole (Omeprazole 20 Mg Capsule.Dr) 20 mg PO DAILY@0630 [facility] Last Admin: 05/10/23 05:30 Dose: Not Given Documented By: ANDREW Non-Admin Reason: Patient Refused Perphenazine (Perphenazine 8 Mg Tablet) 8 mg PO TID [facility] Last Admin: 05/10/23 08:46 Dose: 8 mg Documented By: DANNY Potassium Chloride (Potassium Chloride Packet 20 Meq Packet) 20 meq PO BID [facility] Last Admin: 05/10/23 08:51 Dose: Not Given Documented By: DANNY Non-Admin Reason: Patient Refused Prazosin HCl (Prazosin Hcl 1 Mg Capsule) 1 mg PO BEDTIME [facility]; Protocol Last Admin: 05/09/23 20:37 Dose: Not Given Documented By: ANDREW Non-Admin Reason: Patient Refused Sodium Chloride (0.9 % Sodium Chloride Flush 3 Ml Syringe) 3 ml IVFLUSH QSHIFT [facility] Last Admin: 05/10/23 08:51 Dose: 3 ml Documented By: DANNY Trazodone HCl (Trazodone Hcl 50 Mg Tablet) 50 mg PO BEDTIME PRN PRN Reason: insomnia Venlafaxine HCl (Venlafaxine Hcl Er 150 Mg Cap.Er.24h) 150 mg PO DAILY [facility] Last Admin: 05/10/23 08:46 Dose: 150 mg Documented By: DANNY Labs 05/09/23 04:39 05/09/23 04:39 Microbiology Microbiology Results: Microbiology 05/08/23 15:24 Blood Culture - Preliminary Blood - Venous No growth after 24 hours. 05/08/23 14:51 Blood Culture - Preliminary Blood - Venous No growth after 24 hours. Assessment and Plan (1) COPD with acute exacerbation: Status: Acute Plan 57F PMH morbid obesity, chronic diasotlic chf, copd, schizoaffective disorder, ptsd, adhd, gerd, hypothryoid, htn, hld, presented with sob Acute hypoxic respiratory failure secondary to acute on chronic diastolic CHF and COPD with acute decompensation likely due to unspecified upper respiratory tract infection continue IV Lasix, monitor electrolytes IV steroids, DuoNebs placed back on 1L 02, was 88% on room air Morbid obesity Weight loss recommended Schizoaffective disorder with suicidal ideation Continue sitter Continue Depakote, venlafaxine Will need care team eval prior to discharge Reported history of diabetes a1c 5.5 - does not appear to have DM Reported history of CKD 3 Appears to have normal GFR Hypothyroid Synthroid Hypertension Prazosin, metoprolol Hyperlipidemia Statin DVT prophylaxis with Lovenox Full Code reason for continued hospitalization:still diffusely wheezing and hypoxic Quality Stroke Does the patient have a stroke diagnosis?: No VTE Prior VTE?: No VTE Risk Level:: Medical - moderate - high VTE Device Contraindication: Treatment Not Indicated VTE Drug Contraindication: N/A - Med Ordered
--- NOTE | 2023-05-10 10:22 | MHC.CM.PN ---
EMR reviewed. Per MD rounds patient is not medically cleared for dc. Will need CARE eval when medically cleared. CM will continue to follow.
[2023-05-10] MEDS: Prazosin HCL 1 MG CAPSULE PO (20:47)
[2023-05-10] MEDS: Atorvastatin Calcium 40 MG TABLET PO (20:47)
[2023-05-10] MEDS: Divalproex Sodium ER 500 MG TAB.ER.24H 1000 MG PO (20:48)
[2023-05-10] MEDS: Potassium Chloride Packet 20 MEQ PACKET PO (20:48)
[2023-05-10] MEDS: traZODone HCL 50 MG TABLET PO (20:54)
[2023-05-11] VITALS (8 sets, daily range): BP systolic 145–170; BP diastolic 64–80; PULSE 59–71; RESP 16–20; TEMP 36.2–36.9; O2SAT 94–98
[2023-05-11] MEDS: Enoxaparin Sodium 40 MG/0.4 ML SYRINGE SUBCUT (05:37)
[2023-05-11] MEDS: Levothyroxine Sodium 125 MCG TABLET PO (05:37)
[2023-05-11] MEDS: Omeprazole 20 MG CAPSULE.DR PO (05:37)
[2023-05-11 07:08] LABS: Hematocrit 30.9 % (37.0-47.0); Hemoglobin 9.5 g/dl (12.0-16.0); Mean Corpuscular HGB Conc 30.7 g/dl (31.0-35.0); Mean Corpuscular Hemoglobin 26.1 pg (27.0-33.0); Mean Corpuscular Volume 84.9 fL (80.0-98.0); Mean Platelet Volume 11.6 fL (9.4-12.3); Platelet Count 265 X10*3/uL (160-400); Red Blood Count 3.64 X10*6/uL (4.20-5.50); Red Cell Distribution Width 17.6 % (11.0-16.0); White Blood Count 9.1 X10*3/uL (4.8-10.8)
[2023-05-11 07:14] LABS: Anion Gap 17 (12-20); Blood Urea Nitrogen 28 mg/dL (9-16); Calcium 9.2 mg/dL (8.4-10.2); Carbon Dioxide 29 mmol/L (22-29); Chloride 98 mmol/L (96-108); Creatinine Clr Calc Pharmacy 95.7; Estimated Glomerular Filt Rate > 60; Glucose Fasting 210 mg/dL (60-99); Potassium 3.6 mmol/L (3.3-5.1); Sodium 140 mmol/L (135-145)
--- NOTE | 2023-05-11 07:44 | HO.PM.IMPN ---
Subjective Subjective Date of Service: 05/11/23 Interval History: feeling better Physical Exam Vital Signs: Vital Signs: Last Vital Signs Temp 97.2 F 05/11/23 06:56 Pulse 62 05/11/23 06:56 Resp 20 05/11/23 06:56 BP 170/80 H 05/11/23 06:56 Pulse Ox 95 05/11/23 06:56 O2 Del Method Room Air 05/11/23 06:56 O2 Flow Rate 2 05/10/23 15:19 BMI result Body Mass Index 40.5 much better air movement, some mild crackles and end exp wheezes Objective Data Active Medications Albuterol/Ipratropium (Albuterol/Iprat 2.5/0.5mg 3 Ml Ampul.Neb) 3 ml INHALE RQ4H WHILE AWAKE [facility] Last Admin: 05/10/23 19:11 Dose: 3 ml Documented By: GANESH Atorvastatin Calcium (Atorvastatin Calcium 40 Mg Tablet) 40 mg PO BEDTIME [facility] Last Admin: 05/10/23 20:47 Dose: 40 mg Documented By: ANDREW Benztropine Mesylate (Benztropine Mesylate 0.5 Mg Tablet) 0.5 mg PO BID [facility] Last Admin: 05/10/23 20:47 Dose: 0.5 mg Documented By: ANDREW Divalproex Sodium (Divalproex Sodium Er 500 Mg Tab.Er.24h) 1,000 mg PO BEDTIME [facility] Last Admin: 05/10/23 20:48 Dose: 1,000 mg Documented By: ANDREW Enoxaparin Sodium (Enoxaparin Sodium 40 Mg/0.4 Ml Syringe) 40 mg SUBCUT Q24H [facility] Last Admin: 05/11/23 05:37 Dose: 40 mg Documented By: ANDREW Famotidine (Famotidine 20 Mg Tablet) 20 mg PO BID [facility] Last Admin: 05/10/23 20:48 Dose: 20 mg Documented By: ANDREW Ferrous Sulfate (Ferrous Sulfate 324 Mg Tablet.) 324 mg PO BIDWM [facility] Last Admin: 05/10/23 17:51 Dose: 324 mg Documented By: DANNY Furosemide (Furosemide 40 Mg/4 Ml Vial) 40 mg IVPUSH BID@0900,1800 [facility]; Protocol Last Admin: 05/10/23 17:51 Dose: 40 mg Documented By: DANNY Levothyroxine Sodium (Levothyroxine Sodium 125 Mcg Tablet) 125 mcg PO DAILY@0600 [facility] Last Admin: 05/11/23 05:37 Dose: 125 mcg Documented By: ANDREW Lurasidone HCl (Lurasidone Hcl 40 Mg Tablet) 40 mg PO DAILY [facility] Last Admin: 05/10/23 08:47 Dose: 40 mg Documented By: DANNY Methylprednisolone Sodium Succinate (Methylprednisolone Sod Succ 40 Mg/Ml Vial) 40 mg IVPUSH Q12H [facility] Last Admin: 05/10/23 20:48 Dose: 40 mg Documented By: ANDREW Metoprolol Succinate (Metoprolol Succinate Er 25 Mg Tab.Er.24h) 25 mg PO DAILY [facility]; Protocol Last Admin: 05/10/23 08:46 Dose: 25 mg Documented By: DANNY Omeprazole (Omeprazole 20 Mg Capsule.Dr) 20 mg PO DAILY@0630 [facility] Last Admin: 05/11/23 05:37 Dose: 20 mg Documented By: ANDREW Perphenazine (Perphenazine 8 Mg Tablet) 8 mg PO TID [facility] Last Admin: 05/10/23 20:48 Dose: 8 mg Documented By: ANDREW Potassium Chloride (Potassium Chloride Packet 20 Meq Packet) 20 meq PO BID [facility] Last Admin: 05/10/23 20:48 Dose: 20 meq Documented By: ANDREW Prazosin HCl (Prazosin Hcl 1 Mg Capsule) 1 mg PO BEDTIME [facility]; Protocol Last Admin: 05/10/23 20:47 Dose: 1 mg Documented By: ANDREW Sodium Chloride (0.9 % Sodium Chloride Flush 3 Ml Syringe) 3 ml IVFLUSH QSHIFT [facility] Last Admin: 05/10/23 20:48 Dose: 3 ml Documented By: ANDREW Trazodone HCl (Trazodone Hcl 50 Mg Tablet) 50 mg PO BEDTIME PRN PRN Reason: insomnia Last Admin: 05/10/23 20:54 Dose: 50 mg Documented By: ANDREW Venlafaxine HCl (Venlafaxine Hcl Er 150 Mg Cap.Er.24h) 150 mg PO DAILY [facility] Last Admin: 05/10/23 08:46 Dose: 150 mg Documented By: DANNY Labs 05/11/23 05:40 05/11/23 05:40 Labs: Laboratory Results - last 24 hr 05/11/23 05:40 MCV 84.9 MCH 26.1 L MCHC 30.7 L RDW 17.6 H Plt Count 265 MPV 11.6 Absolute Nucleated RBC 0.000 Nucleated RBC % (auto) 0.0 Anion Gap 17 Estim Creat Clear Calc 95.7 Estimated GFR > 60 Fasting Glucose 210 H Calcium 9.2 Microbiology Microbiology Results: Microbiology 05/08/23 15:24 Blood Culture - Preliminary Blood - Venous No growth after 48 hours. 05/08/23 14:51 Blood Culture - Preliminary Blood - Venous No growth after 48 hours. Assessment and Plan (1) COPD with acute exacerbation: Status: Acute Plan 57F PMH morbid obesity, chronic diasotlic chf, copd, schizoaffective disorder, ptsd, adhd, gerd, hypothryoid, htn, hld, presented with sob Acute hypoxic respiratory failure secondary to acute on chronic diastolic CHF and COPD with acute decompensation likely due to unspecified upper respiratory tract infection now much better, on room air change to po lasix (increased from 20 home dose to 40mg daily) prednisone 40mg daily Morbid obesity Weight loss recommended Schizoaffective disorder with suicidal ideation Continue sitter Continue Depakote, venlafaxine medically stable, care team eval Reported history of diabetes a1c 5.5 - does not appear to have DM Reported history of CKD 3 Appears to have normal GFR Hypothyroid Synthroid Hypertension Prazosin, metoprolol Hyperlipidemia Statin DVT prophylaxis with Lovenox Full Code reason for continued hospitalization: care team eval, medically cleared Quality Stroke Does the patient have a stroke diagnosis?: No VTE Prior VTE?: No VTE Risk Level:: Medical - moderate - high VTE Device Contraindication: Treatment Not Indicated VTE Drug Contraindication: N/A - Med Ordered
--- NOTE | 2023-05-11 07:47 | PM.DS ---
DS: Providers Provider Date of Service: 05/11/23 Date of admission: 05/08/23 16:43 Date of discharge: 05/12/23 Primary care physician: Unknown Physician Consults: 05/08/23 16:49 Consult for Sitter Routine Reason for consultation: SI 05/10/23 16:31 Consult to Wound Care Routine Reason for consultation: Bilateral forearms 05/11/23 07:33 Consult to Care Team Routine Comment: Reason for consultation: medically cleared, SI, from [place] DS: Diagnosis Discharge Diagnosis (1) COPD with acute exacerbation: Status: Acute DS: Summary Hospital Course Hospital Course: from initial hpi: 57F PMH morbid obesity, 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 Patient presented from [facility] where she has been admitted for depression. Patient reports about a 1 week prior to presentation symptoms began with upper respiratory tract infection. Symptoms continued to progress with cough and shortness of breath to the point where she was noted to be hypoxic to the low 80s on room air on day of presentation so sent to the ED. In ED viral swab was negative. Patient was hypoxic requiring 2 L. elevated BNP, chest x-ray with central vascular prominence. Patient denies chest pain, fever, abdominal pain, nausea vomiting or diarrhea. hospital course: Patient was admitted for acute hypoxic respiratory failure secondary to acute on chronic diastolic CHF and COPD with acute decompensation likely due to unspecified upper respiratory tract infection. She was treated with IV Lasix and diuresed well. She was also treated with IV steroids and DuoNebs. Symptoms significantly improved and patient was weaned down to room air. She will be discharged on 5 more days of prednisone and her home Lasix of 20 mg daily will be increased to 40 mg daily. For morbid obesity weight loss recommended. For schizoaffective disorder with suicidal ideation she was continued on Depakote and venlafaxine. She was seen by care team prior to discharge who recommended discharge back to [facility].. For reported history of diabetes A1c was done which showed 5.5, patient did not have any hyperglycemic episodes and does not appear to have diabetes. For reported history of CKD 3 patient maintained normal GFR throughout hospitalization, she does not appear to have CKD 3. For hypothyroidism was continued on Synthroid. For hypertension was continued on prazosin and metoprolol. For hyperlipidemia was continue on statin. Time Attestation Discharge Coordination Time (in mins): 35 Quality: Safe Use of Opioids Does Pt have an Active Cancer Diagnosis on the Problem List?: No Quality: Stroke Does the patient have a stroke diagnosis?: No Physical Exam Vital Signs: Vital Signs: Last Vital Signs Temp 97.2 F 05/11/23 06:56 Pulse 62 05/11/23 06:56 Resp 20 05/11/23 06:56 BP 170/80 H 05/11/23 06:56 Pulse Ox 95 05/11/23 06:56 O2 Del Method Room Air 05/11/23 06:56 O2 Flow Rate 2 05/10/23 15:19 BMI result Body Mass Index 40.5 much better air movement, some mild crackles and end exp wheezes DS: Data Data Completed and Pending Labs on day of discharge: Laboratory Results - last 24 hr 05/11/23 05:40 WBC 9.1 RBC 3.64 L Hgb 9.5 L Hct 30.9 L MCV 84.9 MCH 26.1 L MCHC 30.7 L RDW 17.6 H Plt Count 265 MPV 11.6 Absolute Nucleated RBC 0.000 Nucleated RBC % (auto) 0.0 Sodium 140 Potassium 3.6 Chloride 98 Carbon Dioxide 29 Anion Gap 17 BUN 28 H Creatinine 0.85 Estim Creat Clear Calc 95.7 Estimated GFR > 60 Fasting Glucose 210 H Calcium 9.2 Preliminary micro results at discharge 05/08/23 15:24 Blood Culture - Preliminary Blood - Venous No growth after 48 hours. 05/08/23 14:51 Blood Culture - Preliminary Blood - Venous No growth after 48 hours. Discharge Plan Discharge Anticipated Discharge Date/Time: 05/12/23 08:00 Patient Disposition: Xfer Other Discharge Diagnosis: chf, copd Referrals: Physician,Unknown J [Physician] - 1 Week Discharge Medications: New furosemide 40 mg Tablet 40 mg PO DAILY Qty: 0 0RF Protocol: Hold for SBP< HOLD for SBP < : 90 prednisone 20 mg Tablet 40 mg PO DAILY 5 Days Qty: 0 0RF Continued benztropine 0.5 mg Tablet 0.5 mg PO BID 30 Days Qty: 60 0RF levothyroxine 125 mcg Tablet 125 mcg PO DAILY 30 Days Qty: 30 0RF divalproex 500 mg Tablet Extended Release 24 Hr 1,000 mg PO BEDTIME 30 Days Qty: 60 0RF trazodone 50 mg tablet 50 mg PO BEDTIME PRN (Reason: insomnia) 30 Days Qty: 30 0RF venlafaxine 150 mg capsule,extended release 24hr 150 mg PO DAILY 30 Days Qty: 30 0RF atorvastatin 40 mg tablet 40 mg PO BEDTIME pantoprazole 20 mg tablet,delayed release (DR/EC) 20 mg PO DAILY potassium chloride 20 mEq Packet 20 meq PO BID metoprolol succinate 25 mg tablet extended release 24 hr 25 mg PO DAILY lurasidone [Latuda] 40 mg Tablet 40 mg PO DAILY Rx Instructions: must administer with food (at least 350 calories) prazosin 1 mg capsule 1 mg PO BEDTIME ferrous sulfate 325 mg (65 mg iron) tablet 325 mg PO BIDWM perphenazine 8 mg tablet 8 mg PO TID famotidine 20 mg Tablet 20 mg PO BID multivitamin Tablet 1 tab PO DAILY miconazole nitrate 2 % Powder 1 appl TOPICAL BID PRN (Reason: Itching) haloperidol 1 mg Tablet 2 mg PO BID PRN (Reason: Agitation) melatonin 3 mg Tablet 3 mg PO BEDTIME PRN (Reason: Insomnia) calcium carbonate 500 mg calcium (1,250 mg) Tablet,Chewable 500 mg PO Q4H PRN (Reason: Indigestion) lorazepam 1 mg Tablet 1 mg PO BID PRN (Reason: Agitation) Rx Instructions: USE WITH HALDOL FOR SEVERE AGITATION nicotine (polacrilex) 2 mg Lozenge 2 mg BUCCAL Q1H PRN (Reason: Nicotine Cravings) Discontinued furosemide 20 mg Tablet 20 mg PO DAILY Discharge Orders: Discharge Order (Routine); Ordered 05/12/23 Ordered By: Irving Goel Diet: Advance to usual diet Activity on Discharge: As tolerated Stand Alone Forms: Patient Portal Discharge page Care Plan Goals: recovery Health Concerns: chf, copd Plan of Treatment: increase lasix to 40, 5 days prednsione Assessment: see above
[2023-05-11] MEDS: Albuterol/Iprat 2.5/0.5MG 3 ML AMPUL.NEB INHALE ×4 (08:45→20:00)
[2023-05-11] MEDS: Venlafaxine HCl ER 150 MG CAP.ER.24H PO (10:16)
[2023-05-11] MEDS: predniSONE 20 MG TABLET 40 MG PO (10:16)
[2023-05-11] MEDS: Lurasidone HCl 40 MG TABLET PO (10:16)
[2023-05-11] MEDS: Famotidine 20 MG TABLET PO ×2 (10:16→20:42)
[2023-05-11] MEDS: Metoprolol Succinate ER 25 MG TAB.ER.24H PO (10:16)
[2023-05-11] MEDS: Ferrous Sulfate 324 MG TABLET.DR PO ×2 (10:17→17:07)
[2023-05-11] MEDS: methylPREDNISolone Sod Succ 40 MG/ML VIAL IVPUSH ×2 (10:17→20:40)
[2023-05-11] MEDS: Benztropine Mesylate 0.5 MG TABLET PO ×2 (10:17→20:42)
[2023-05-11] MEDS: Perphenazine 8 MG TABLET PO ×3 (10:17→20:42)
[2023-05-11] MEDS: Furosemide 40 MG TABLET PO (10:17)
[2023-05-11] MEDS: 0.9 % Sodium Chloride Flush 3 ML SYRINGE IVFLUSH ×3 (10:18→20:42)
--- NOTE | 2023-05-11 14:30 | MHC.CARE ---
Pt is accepted to [facility] for 05/11 @ 9am Address- [address], [place] [address] Accept[address] Doctor Lacey Garcia
--- NOTE | 2023-05-11 14:54 | MHC.CM.PN ---
Addendum entered by Earlene Pinto RN 05/11/23 15:08: IMM DELIVERED. Original Note: Patient is medically cleared. Per CARE team, continues to require inpatient psychiatric care. Accepted back to [facility] 05/11 at 0900. [facility] transportation book. CARE team, RN, MD and patient aware. [facility] Booking ID# [id number].
[2023-05-11] MEDS: LORazepam 0.5 MG TABLET PO (15:12)
[2023-05-11] MEDS: Atorvastatin Calcium 40 MG TABLET PO (20:41)
[2023-05-11] MEDS: traZODone HCL 50 MG TABLET PO (20:41)
[2023-05-11] MEDS: Prazosin HCL 1 MG CAPSULE PO (20:41)
[2023-05-11] MEDS: Divalproex Sodium ER 500 MG TAB.ER.24H 1000 MG PO (20:42)
[2023-05-12 03:47] VITALS: BP 164/71; PULSE 74; RESP 18; TEMP 36.2; O2SAT 95
[2023-05-12] MEDS: Enoxaparin Sodium 40 MG/0.4 ML SYRINGE SUBCUT (06:08)
[2023-05-12] MEDS: Levothyroxine Sodium 125 MCG TABLET PO (06:08)
[2023-05-12] MEDS: Venlafaxine HCl ER 150 MG CAP.ER.24H PO (07:44)
[2023-05-12] MEDS: Metoprolol Succinate ER 25 MG TAB.ER.24H PO (07:44)
[2023-05-12] MEDS: Famotidine 20 MG TABLET PO (07:45)
[2023-05-12] MEDS: Ferrous Sulfate 324 MG TABLET.DR PO (07:45)
[2023-05-12] MEDS: predniSONE 20 MG TABLET 40 MG PO (07:45)
[2023-05-12] MEDS: Benztropine Mesylate 0.5 MG TABLET PO (07:45)
[2023-05-12] MEDS: Furosemide 40 MG TABLET PO (07:45)
[2023-05-12] MEDS: Lurasidone HCl 40 MG TABLET PO (07:45)
[2023-05-12] MEDS: Perphenazine 8 MG TABLET PO (07:46)
[2023-05-12 07:47] VITALS: BP 166/72; PULSE 67; RESP 18; TEMP 35.9; O2SAT 94
[2023-05-12] MEDS: Albuterol/Iprat 2.5/0.5MG 3 ML AMPUL.NEB INHALE (08:05)
[2023-05-12 08:07] VITALS: PULSE 64; RESP 18; O2SAT 100
--- NOTE | 2023-05-12 08:35 | MHC.CM.PN ---
Patient dc'd to [facility] via BLS. IMM was delivered 05/10.
== END 2023-05-12 09:24 | disposition other institution (70) | DRG 291 ==
LOC: HO.ED 16:26 → HO.EDOVER 17:06 → HO.S3 05-09 07:33
PROVIDERS: Admitting Provider Internal Medicine; Emergency Provider Emergency Medicine; PCP Physician Assistant; Visit Provider Student in an Organized Health Care Education/Training Program
DX: I11.0 Hypertensive heart disease with heart failure (principal); I50.33 Acute on chronic diastolic (congestive) heart failure; J96.01 Acute respiratory failure with hypoxia; Z68.41 Body mass index [BMI] 40.0-44.9, adult; R45.851 Suicidal ideations; J44.1 Chronic obstructive pulmonary disease with (acute) exacerbation; E78.5 Hyperlipidemia, unspecified; E66.01 Morbid (severe) obesity due to excess calories; F25.9 Schizoaffective disorder, unspecified; E03.9 Hypothyroidism, unspecified; Z20.822 Contact with and (suspected) exposure to COVID-19; Z87.891 Personal history of nicotine dependence; Z79.890 Hormone replacement therapy; Z79.899 Other long term (current) drug therapy
CPT/HCPCS: 0241U; 36415; 71045; 80048; 80076; 80164; 82947; 83036; 83605; 83735; 83880; 84484; 85025; 85027; 87040; 93005; 94640; 99285; J1630; J1650; J1940; J2920; J2930; J3475; S9485

== ENCOUNTER → 2023-05-08 13:13 | Outpatient (BNV) | payer OTHER, SELFPAY | PROVIDERS: Admitting Provider Internal Medicine; Emergency Provider Emergency Medicine; Visit Provider Internal Medicine | DX: R06.00 Dyspnea, unspecified (principal) | CPT/HCPCS: 93010 ==

== ENCOUNTER → 2023-05-08 13:41 | Outpatient (BNV) | payer OTHER, SELFPAY | PROVIDERS: Emergency Provider Emergency Medicine; Visit Provider Internal Medicine | DX: J44.1 Chronic obstructive pulmonary disease with (acute) exacerbation (principal); J96.01 Acute respiratory failure with hypoxia; I50.33 Acute on chronic diastolic (congestive) heart failure | CPT/HCPCS: 99223; 99232; 99233; 99239 ==

== ENCOUNTER 2023-05-27 11:32 | Emergency (ER) | payer OTHER, SELFPAY ==
--- NOTE | ~2023-05-27 | XR_ITS ---
EXAMINATION: XR CHEST CLINICAL INFORMATION: Reason for Exam dyspnea COMPARISON: Chest radiograph 05/08/2023 TECHNIQUE: One view of the chest FINDINGS: Lines and tubes: EKG leads overlie the patient. Cardiac device overlies left hemithorax, unchanged from prior. Bronchial wall thickening which can be seen with a small airways process such as asthma or atypical/viral infection. No pleural effusion. No pneumothorax. Unchanged cardiomediastinal silhouette. XR/XR chest 1V IMPRESSION: 1. Bronchial wall thickening which can be seen with a small airways process such as asthma or atypical/viral infection.
[2023-05-27 11:36] VITALS: BP 154/66; PULSE 80; O2SAT 98
[2023-05-27 11:39] VITALS: RESP 18; TEMP 37.2; O2SAT 95; BMI 47.0
[2023-05-27 11:42] VITALS: BP 172/73; RESP 18; O2SAT 98
--- NOTE | 2023-05-27 11:46 | ED_ITS ---
HPI - General Adult General Chief complaint: General Medical Stated complaint: CHF EXAC Time Seen by Provider: 05/27/23 11:45 Source: patient and EMS Mode of arrival: EMS Limitations: no limitations History of Present Illness HPI narrative: 57-year-old female past history significant for CHF borderline personality disorder PTSD obesity chronic hypoxic respiratory failure COPD and CHF. Recently admitted here May 07 for CHF exacerbation did improve with Lasix patient is coming from [facility] for crackles and worsening shortness of breath. Related Data Home Medications ?Medication ?Instructions ?Recorded ?Confirmed atorvastatin 40 mg tablet 40 mg PO BEDTIME 05/08/23 05/08/23 calcium carbonate 500 mg calcium 500 mg PO Q4H PRN Indigestion 05/08/23 05/08/23 (1,250 mg) chewable tablet famotidine 20 mg tablet 20 mg PO BID 05/08/23 05/08/23 ferrous sulfate 325 mg (65 mg 325 mg PO BIDWM 05/08/23 05/08/23 iron) tablet haloperidol 1 mg tablet 2 mg PO BID PRN Agitation 05/08/23 05/08/23 lorazepam 1 mg tablet 1 mg PO BID PRN Agitation 05/08/23 05/08/23 lurasidone 40 mg tablet (Latuda) 40 mg PO DAILY 05/08/23 05/08/23 melatonin 3 mg tablet 3 mg PO BEDTIME PRN Insomnia 05/08/23 05/08/23 metoprolol succinate 25 mg 25 mg PO DAILY 05/08/23 05/08/23 tablet,extended release 24 hr miconazole nitrate 2 % topical 1 appl topical BID PRN Itching 05/08/23 05/08/23 powder multivitamin 1 tab PO DAILY 05/08/23 05/08/23 nicotine (polacrilex) 2 mg buccal 2 mg buccal Q1H PRN Nicotine 05/08/23 05/08/23 lozenge Cravings pantoprazole 20 mg tablet,delayed 20 mg PO DAILY 05/08/23 05/08/23 release perphenazine 8 mg tablet 8 mg PO TID 05/08/23 05/08/23 potassium chloride 20 mEq oral 20 meq PO BID 05/08/23 05/08/23 packet prazosin 1 mg capsule 1 mg PO BEDTIME 05/08/23 05/08/23 Previous Rx's ?Medication ?Instructions ?Recorded benztropine 0.5 mg tablet 0.5 mg PO BID 30 days #60 tabs 06/18/21 divalproex 500 mg tablet,extended 1,000 mg (2 x 500 mg) PO BEDTIME 06/18/21 release 24 hr 30 days #60 tabs levothyroxine 125 mcg tablet 125 mcg PO DAILY 30 days #30 tabs 06/18/21 trazodone 50 mg tablet 50 mg PO BEDTIME PRN insomnia 30 06/18/21 days #30 tabs venlafaxine 150 mg 150 mg PO DAILY 30 days #30 caps 06/18/21 capsule,extended release 24 hr furosemide 40 mg tablet 40 mg PO DAILY #0 tabs 05/11/23 prednisone 20 mg tablet 40 mg (2 x 20 mg) PO DAILY 5 days 05/11/23 #0 tabs Allergies Allergy/AdvReac Type Severity Reaction Status Date / Time Penicillins Allergy Mild unkown Verified 05/27/23 11:42 Sulfa (Sulfonamide Allergy Mild unknown Verified 05/27/23 11:42 Antibiotics) Review of Systems 2 Review of Systems: Review of systems: General: Patient denies any fever chills recent illness or falls Musculoskeletal: Denies back pain or body aches or other injuries HEENT: denies headache, runny nose, ear pain Respiratory: shortness of breath, cough Cardiovascular: no chest pain or palpitations : denies dysuria, frequency Abdomen: no nausea vomiting denies abdominal pain Extremities: no swelling, no pain Skin: no diaphoresis Yes all other systems are reviewed and are negative [facility] Past Medical History Medical History Kidney disease Bipolar 1 disorder HTN (hypertension) Diabetes Social History Social History Household Members: None Household Members Other:: 3 other people live [facility] pen[facility] Housing: Apartment Housing Other:: currently at [facility] for past month Do you presently have visiting nurse or other home services: No Alcohol intake: former Comment: one to one sitter at bed side Patient Tobacco Use Status: Former Tobacco user Tobacco use type: Cigarette Cigarette Packs Per Day: 0.5 Cigarettes Per Day: 10.0 Smoked in Last 30 Days: No Second Hand Smoke Exposure: No Advance Directives: Yes Advance Directives on File: Yes Advance Directives Date on File: 11/25/19 service: No Sexual orientation: Px. was asleep when called for this assessment. Physical Exam ED Vital Signs: Vital Signs - 24 hr 05/27/23 11:39 05/27/23 11:42 05/27/23 14:31 Temperature 99 F 98.7 F Pulse Rate 73 Respiratory Rate 18 18 20 Blood Pressure 172/73 H 171/69 H Pulse Oximetry 95 98 98 Oxygen Delivery Method Nasal Cannula Room Air BMI result Body Mass Index 47.0 General: Well-appearing well-nourished in no signs of distress HEENT: Normocephalic atraumatic Neck: No signs of JVD, no masses no tenderness or lymphadenopathy Cardiovascular: Regular rate and rhythm Respiratory: crackles bilaterally Abdomen: Soft nontender no masses Extremities: Normal pedal pulses 1 to 2 plus signs of edema Skin: Dry warm no rashes Back: No tenderness full ROM Course Course Course Narrative: Patient did well but became hypoxic down to the 70s repositioned the patient called for the patient to get BiPAP for short period of time and ABG was done as well patient is well known to the respiratory therapist said that she did this last time and when she sat up and started breathing she did much better patient oxygen corrected and was taken off BiPAP shortly after starting it. Reevaluation(s) Reevaluation #1: Patient continues to do well I do not think the patient needs to be admitted today I will send home have the patient follow up with her doctor. Medications Administered Discontinued Medications Generic Name Dose Route Start Last Admin Trade Name Freq PRN Reason Stop Dose Admin Furosemide 40 mg 05/27/23 11:49 05/27/23 13:51 Furosemide 40 Mg/4 Ml Vial IVPUSH 05/27/23 11:50 40 mg ONCE ONE Administration Protocol Prednisone 60 mg 05/27/23 11:49 05/27/23 13:51 Prednisone 20 Mg Tablet PO 05/27/23 11:50 60 mg ONCE ONE Administration Medical Decision Making Medical Decision Making [facility] Narrative: Will send the patient Lasix get the patient over for x-ray and labs and reassess Differential Diagnosis Differential Diagnoses: The differential diagnosis associated with the presentation includes CBD CHF pneumonia cough fever COVID flu RSV Admission/Observation Consideration of admission/observation: Escalation of care including admission/observation considered Consult Healthcare Provider Management of the patient was discussed with: Hospitalist Lab Data [facility] Lab Attestation statement: I reviewed the patient's lab results. 05/27/23 13:08 05/27/23 13:08 Labs: Lab Results 05/27/23 Range/Units 13:08 WBC 9.2 (4.8-10.8) X10*3/uL RBC 3.50 L (4.20-5.50) X10*6/uL Hgb 9.1 L (12.0-16.0) g/dl Hct 30.3 L (37.0-47.0) % MCV 86.6 (80.0-98.0) fL MCH 26.0 L (27.0-33.0) pg MCHC 30.0 L (31.0-35.0) g/dl RDW 18.7 H (11.0-16.0) % Plt Count 236 (160-400) X10*3/uL MPV 11.2 (9.4-12.3) fL Immature Gran % (Auto) 0.4 (0.0-0.4) % Neut % (Auto) 56.8 (45-73) % Lymph % (Auto) 21.7 (20-40) % [place] % (Auto) 7.6 (2-11) % Eos % (Auto) 11.4 H (0-4) % Baso % (Auto) 2.1 H (0-2) % Lymph # (Auto) 2.0 (1.2-4.9) X10*3/uL [place] # (Auto) 0.7 (0.1-1.2) X10*3/uL Eos # (Auto) 1.1 H (0.0-0.4) X10*3/uL Baso # (Auto) 0.2 (0.0-0.2) X10*3/uL Abs Immat Gran (auto) 0.04 H (0.00-0.03) X10*3/uL Absolute Neuts (auto) 5.2 (2.0-8.3) x10*3/uL Absolute Nucleated RBC 0.000 (0.0-0.012) X10*3/uL Nucleated RBC % (auto) 0.0 (0.0-0.2) /100WBC Sodium 139 (135-145) mmol/L Potassium 4.3 (3.3-5.1) mmol/L Chloride 107 (96-108) mmol/L Carbon Dioxide 23 (22-29) mmol/L Anion Gap 13 (12-20) BUN 21 H (9-16) mg/dL Creatinine 0.96 (0.5-1.4) mg/dL Estim Creat Clear Calc 92.4 Estimated GFR > 60 Random Glucose 114 (60-115) mg/dL Lactic Acid 1.0 (0.5-2.0) mmol/L Calcium 9.6 (8.4-10.2) mg/dL Total Bilirubin 0.3 (0.0-1.0) mg/dL Direct Bilirubin 0.1 (0.0-0.5) mg/dL AST 9 (5-31) U/L ALT 8 (0-31) U/L Alkaline Phosphatase 93 (39-117) U/L Troponin I High Sens 4.4 D (<3.5-17.0) ng/L B-Natriuretic Peptide 366 H (<100) pg/mL Total Protein 7.0 (6.5-8.0) g/dL Albumin 3.5 (3.5-5.0) g/dL Lipase 20 (8-78) U/L Independent Interpretation I performed an independent interpretation of an: EKG, Rhythm Strip and Plain X- Ray Radiology Impression Discussion of test interpretation with radiology: I have reviewed the radiologist's reading. Independent Historian Clinical information obtained from an independent historian. History obtained from or confirmed by: EMS Chronic Conditions Patient?s care impacted by: Diabetes and Hypertension Social Determinants Patient?s care significantly limited by Social Determinants of Health including: Inadequate housing Core Measures AMI core measures followed: No Discharge Plan Discharge Clinical Impression: Acute exacerbation of CHF (congestive heart failure) Patient Disposition: Home, Self-Care Instructions: Heart Failure (ED) Additional Instructions: You were seen today for shortness of breath year given some medications had an x-ray and labs which all looked okay. He had been concerns please do not hesitate to come back to emergency department. Prescriptions: No Action benztropine 0.5 mg Tablet 0.5 mg PO BID 30 Days Qty: 60 0RF levothyroxine 125 mcg Tablet 125 mcg PO DAILY 30 Days Qty: 30 0RF divalproex 500 mg Tablet Extended Release 24 Hr 1,000 mg PO BEDTIME 30 Days Qty: 60 0RF trazodone 50 mg tablet 50 mg PO BEDTIME PRN (Reason: insomnia) 30 Days Qty: 30 0RF venlafaxine 150 mg capsule,extended release 24hr 150 mg PO DAILY 30 Days Qty: 30 0RF atorvastatin 40 mg tablet 40 mg PO BEDTIME pantoprazole 20 mg tablet,delayed release (DR/EC) 20 mg PO DAILY potassium chloride 20 mEq Packet 20 meq PO BID metoprolol succinate 25 mg tablet extended release 24 hr 25 mg PO DAILY lurasidone [Latuda] 40 mg Tablet 40 mg PO DAILY Rx Instructions: must administer with food (at least 350 calories) prazosin 1 mg capsule 1 mg PO BEDTIME ferrous sulfate 325 mg (65 mg iron) tablet 325 mg PO BIDWM perphenazine 8 mg tablet 8 mg PO TID famotidine 20 mg Tablet 20 mg PO BID multivitamin Tablet 1 tab PO DAILY miconazole nitrate 2 % Powder 1 appl TOPICAL BID PRN (Reason: Itching) haloperidol 1 mg Tablet 2 mg PO BID PRN (Reason: Agitation) melatonin 3 mg Tablet 3 mg PO BEDTIME PRN (Reason: Insomnia) calcium carbonate 500 mg calcium (1,250 mg) Tablet,Chewable 500 mg PO Q4H PRN (Reason: Indigestion) lorazepam 1 mg Tablet 1 mg PO BID PRN (Reason: Agitation) Rx Instructions: USE WITH HALDOL FOR SEVERE AGITATION nicotine (polacrilex) 2 mg Lozenge 2 mg BUCCAL Q1H PRN (Reason: Nicotine Cravings) furosemide 40 mg Tablet 40 mg PO DAILY Qty: 0 0RF Protocol: Hold for SBP< HOLD for SBP < : 90 prednisone 20 mg Tablet 40 mg PO DAILY 5 Days Qty: 0 0RF Print Language: Kazakh
[2023-05-27 13:15] LABS: Basophils Absolute Auto 0.2 X10*3/uL (0.0-0.2); Basophils Percent Auto 2.1 % (0-2); Eosinophils Absolute Auto 1.1 X10*3/uL (0.0-0.4); Eosinophils Percent Auto 11.4 % (0-4); Hematocrit 30.3 % (37.0-47.0); Hemoglobin 9.1 g/dl (12.0-16.0); Imm Gran Abs Auto 0.04 X10*3/uL (0.00-0.03); Imm Gran Pct Auto 0.4 % (0.0-0.4); Lymphocytes Percent Auto 21.7 % (20-40); MANUAL DIFF FLAG NO; Mean Corpuscular Volume 86.6 fL (80.0-98.0); Mean Platelet Volume 11.2 fL (9.4-12.3); Monocytes Absolute Auto 0.7 X10*3/uL (0.1-1.2); Monocytes Percent Auto 7.6 % (2-11); Neutrophils Absolute Auto 5.2 x10*3/uL (2.0-8.3); Neutrophils Percent Auto 56.8 % (45-73); Platelet Count 236 X10*3/uL (160-400); Red Cell Distribution Width 18.7 % (11.0-16.0); White Blood Count 9.2 X10*3/uL (4.8-10.8)
[2023-05-27 13:35] LABS: Alanine Aminotransferase 8 U/L (0-31); Albumin Level 3.5 g/dL (3.5-5.0); Alkaline Phosphatase 93 U/L (39-117); Anion Gap 13 (12-20); Aspartate Amino Transferase 9 U/L (5-31); Bilirubin Direct 0.1 mg/dL (0.0-0.5); Bilirubin Total 0.3 mg/dL (0.0-1.0); Blood Urea Nitrogen 21 mg/dL (9-16); Calcium 9.6 mg/dL (8.4-10.2); Carbon Dioxide 23 mmol/L (22-29); Chloride 107 mmol/L (96-108); Creatinine Clr Calc Pharmacy 92.4; Estimated Glomerular Filt Rate > 60; Glucose Random 114 mg/dL (60-115); Lipase 20 U/L (8-78); Potassium 4.3 mmol/L (3.3-5.1); Sodium 139 mmol/L (135-145)
[2023-05-27 13:38] LABS: B Type Natriuretic Peptide 366 pg/mL (<100)
[2023-05-27 13:42] LABS: Troponin-I High Sensitivity 4.4 ng/L (<3.5-17.0)
[2023-05-27] MEDS: predniSONE 20 MG TABLET 60 MG PO (13:51)
[2023-05-27] MEDS: Furosemide 40 MG/4 ML VIAL IVPUSH (13:51)
[2023-05-27 14:31] VITALS: BP 171/69; PULSE 73; RESP 20; TEMP 37.1; O2SAT 98
--- NOTE | 2023-05-27 14:59 | PC.NURSE ---
report given to jesus childress. DC pending ambulance transfer
[2023-05-27 16:39] VITALS: BP 183/95; PULSE 96; RESP 20; TEMP 36.9; O2SAT 96
== END 2023-05-27 16:41 | disposition home or self-care (01) ==
PROVIDERS: Emergency Provider Student in an Organized Health Care Education/Training Program
DX: I50.9 Heart failure, unspecified (principal); R06.02 Shortness of breath; Z87.891 Personal history of nicotine dependence; Z79.899 Other long term (current) drug therapy
CPT/HCPCS: 36415; 71045; 80048; 80076; 83605; 83690; 83880; 84484; 85025; 87040; 96374; 99284; J1940

== ENCOUNTER 2023-06-01 01:42 | Emergency (ER) | payer OTHER, SELFPAY ==
[2023-06-01] VITALS (13 sets, daily range): BP systolic 0–197; BP diastolic 0–88; PULSE 74–86; RESP 16–22; TEMP -17.7–37.1; O2SAT 86–100; BMI 46.9
--- NOTE | ~2023-06-01 | US_ITS ---
EXAMINATION: US VENOUS ULTRASOUND WITH DOPPLER LOWER EXTREMITY, RIGHT CLINICAL INFORMATION: Calf pain COMPARISON: None available. TECHNIQUE: Ultrasound of the deep veins is performed from the hip to the calf with compression sonography and color and pulse Doppler assessment. Spectral analysis with color-flow imaging is performed. FINDINGS: There is normal venous compression and respiratory variation and augmented flow. The visualized common femoral vein, superficial femoral vein, profunda femoral vein, popliteal vein show no evidence of deep venous thrombosis. Tibial veins were not visualized. There is no significant popliteal fossa cyst. If the patient's symptoms persist, followup ultrasound in 5 days 7 days might be of value to exclude proximal propagation from a non-visualized calf vein. US/US venous duplex LE RT IMPRESSION: No DVT demonstrated in the right lower extremity.
--- NOTE | ~2023-06-01 | XR_ITS ---
EXAMINATION: XR CHEST CLINICAL INFORMATION: Shortness of breath COMPARISON: 05/27/2023 TECHNIQUE: Frontal view of the chest was obtained. FINDINGS: There are mildly prominent interstitial markings bilaterally without vascular congestion, there is bilateral vascular distribution seen. Cardiomediastinal silhouette is borderline. There is pacemaker recorder projecting over the left hemithorax. XR/XR chest 1V IMPRESSION: Mild interstitial edema
--- NOTE | 2023-06-01 02:02 | ECG_ITS ---
Test Reason : SOB Blood Pressure : / mmHG Vent. Rate : 077 BPM Atrial Rate : 077 BPM P-R Int : 184 ms QRS Dur : 138 ms QT Int : 444 ms P-R-T Axes : 060 063 065 degrees QTc Int : 502 ms Normal sinus rhythm Right bundle branch block Abnormal ECG When compared with ECG of 08-MAY-2023 13:30, T wave inversion no longer evident in Anterior leads Nonspecific T wave abnormality now evident in Lateral leads Referred By: Generic ED Physician Electronically Signed By:Bud Soriano
[2023-06-01 02:37] LABS: MANUAL DIFF FLAG NO
[2023-06-01 02:38] LABS: Basophils Absolute Auto 0.1 X10*3/uL (0.0-0.2); Basophils Percent Auto 1.5 % (0-2); Eosinophils Absolute Auto 0.7 X10*3/uL (0.0-0.4); Eosinophils Percent Auto 8.7 % (0-4); Hematocrit 28.7 % (37.0-47.0); Hemoglobin 8.7 g/dl (12.0-16.0); Imm Gran Abs Auto 0.06 X10*3/uL (0.00-0.03); Imm Gran Pct Auto 0.7 % (0.0-0.4); Lymphocytes Absolute Auto 1.7 X10*3/uL (1.2-4.9); Lymphocytes Percent Auto 21.1 % (20-40); Mean Corpuscular HGB Conc 30.3 g/dl (31.0-35.0); Mean Corpuscular Hemoglobin 26.2 pg (27.0-33.0); Mean Corpuscular Volume 86.4 fL (80.0-98.0); Mean Platelet Volume 10.7 fL (9.4-12.3); Monocytes Absolute Auto 0.8 X10*3/uL (0.1-1.2); Monocytes Percent Auto 9.6 % (2-11); NRBC Pct Auto 0.4 /100WBC (0.0-0.2); Neutrophils Absolute Auto 4.8 x10*3/uL (2.0-8.3); Neutrophils Percent Auto 58.4 % (45-73); Platelet Count 194 X10*3/uL (160-400); Red Blood Count 3.32 X10*6/uL (4.20-5.50); Red Cell Distribution Width 18.9 % (11.0-16.0); White Blood Count 8.2 X10*3/uL (4.8-10.8)
[2023-06-01 02:52] LABS: Anion Gap 11 (12-20); Blood Urea Nitrogen 27 mg/dL (9-16); Calcium 9.2 mg/dL (8.4-10.2); Carbon Dioxide 27 mmol/L (22-29); Chloride 106 mmol/L (96-108); Creatinine Clr Calc Pharmacy 83.6; Estimated Glomerular Filt Rate 54; Glucose Random 141 mg/dL (60-115); Potassium 4.1 mmol/L (3.3-5.1); Sodium 140 mmol/L (135-145)
[2023-06-01 02:57] LABS: Troponin-I High Sensitivity 7.9 ng/L (<3.5-17.0)
--- NOTE | 2023-06-01 04:26 | PC.NURSE ---
provider notified of pts elevated bp.
--- NOTE | 2023-06-01 06:31 | PC.NURSE ---
Notified provider of elevated BP. Provider states it is ok for bp to be high at his time.
--- NOTE | 2023-06-01 06:38 | ED_ITS ---
HPI - General Adult General Chief complaint: Dyspnea Stated complaint: sob Time Seen by Provider: 06/01/23 06:35 Source: patient and RN notes reviewed Mode of arrival: ambulatory Limitations: no limitations History of Present Illness HPI narrative: This is a 14-cid[age]-euh-female, with a hx of bipolar disorder, schizoaffective disorder, CHF, hypertension, and diabetes on section 21, presenting to the ER from [place], accompanied by [facility] staff member, with a complaints of shortness of breath and increased lower extremity swelling. Patient states that she is unable to report how long she has been short of breath however has noticed it has been worsening over the last several days. Of note, patient was seen in the emergency room on May 27, 2023 for acute exacerbation of CHF and was discharged home. She is unsure if her symptoms had improved after her hospital visit. She does admit that she has been refusing her at-home medications as she no longer wants to live, she states that she has thoughts of suicidal ideations and ending her life by stabbing herself. She has not been taking her medications as she no longer wants to live. She denies any fevers, chills, chest pain, palpitations, abdominal pain, nausea, vomiting. She does endorse diarrhea. She is not typically on oxygen. No other complaints or concerns at this time. MD complaint: Shortness of breath Onset (ago): day(s) Relieving factors: none Exacerbating factors: none Associated symptoms: denies other symptoms Treatments prior to arrival: none Related Data Home Medications ?Medication ?Instructions ?Recorded ?Confirmed atorvastatin 40 mg tablet 40 mg PO BEDTIME 05/08/23 06/01/23 ferrous sulfate 325 mg (65 mg 325 mg PO BIDWM 05/08/23 06/01/23 iron) tablet haloperidol 1 mg tablet 2 mg PO BID PRN Agitation 05/08/23 06/01/23 lorazepam 1 mg tablet 1 mg PO BID PRN Agitation 05/08/23 06/01/23 multivitamin 1 tab PO DAILY 05/08/23 06/01/23 perphenazine 8 mg tablet 8 mg PO TID 05/08/23 06/01/23 prazosin 1 mg capsule 2 mg PO BEDTIME 05/08/23 06/01/23 acetaminophen 325 mg tablet 650 mg PO Q6H PRN Pain, Mild 06/01/23 06/01/23 albuterol sulfate 90 mcg/actuation 2 puff inhalation Q6H PRN 06/01/23 06/01/23 aerosol inhaler Shortness Of Breath aluminum-mag hydroxide-simethicone 30 ml PO Q6H PRN Dyspepsia 06/01/23 06/01/23 200 mg-200 mg-20 mg/5 mL oral susp aspirin 81 mg tablet,delayed 81 mg PO DAILY 06/01/23 06/01/23 release benzocaine 20 % mucosal gel 1 appl mucous membrane QID PRN 06/01/23 06/01/23 Pain, Mild benztropine 1 mg/mL injection 0.5 mg IM BID 06/01/23 06/01/23 solution clonidine HCl 0.1 mg tablet 0.1 mg PO Q4H PRN Hypertension 06/01/23 06/01/23 haloperidol lactate 5 mg/mL 2 mg IM BID PRN Agitation 06/01/23 06/01/23 injection solution haloperidol lactate 5 mg/mL 2.5 mg IM BID 06/01/23 06/01/23 injection solution lisinopril 10 mg tablet 10 mg PO DAILY 06/01/23 06/01/23 lurasidone 60 mg tablet 60 mg PO QPM 06/01/23 06/01/23 magnesium hydroxide 400 mg/5 mL 30 ml PO DAILY PRN Constipation 06/01/23 06/01/23 oral suspension (Milk of Magnesia) metformin 500 mg tablet 500 mg PO BIDWMEAL 06/01/23 06/01/23 mirtazapine 7.5 mg tablet 7.5 mg PO BEDTIME 06/01/23 06/01/23 omeprazole 20 mg capsule,delayed 40 mg PO DAILY 06/01/23 06/01/23 release ondansetron 4 mg disintegrating 8 mg PO Q8H PRN Nausea And Vomiting 06/01/23 06/01/23 tablet venlafaxine 150 mg 150 mg PO DAILY@0630 06/01/23 06/01/23 capsule,extended release 24 hr Previous Rx's ?Medication ?Instructions ?Recorded benztropine 0.5 mg tablet 0.5 mg PO BID 30 days #60 tabs 06/18/21 divalproex 500 mg tablet,extended 1,000 mg (2 x 500 mg) PO BEDTIME 06/18/21 release 24 hr 30 days #60 tabs levothyroxine 125 mcg tablet 125 mcg PO DAILY 30 days #30 tabs 06/18/21 Allergies Allergy/AdvReac Type Severity Reaction Status Date / Time Penicillins Allergy Mild unkown Verified 06/01/23 02:00 Sulfa (Sulfonamide Allergy Mild unknown Verified 06/01/23 02:00 Antibiotics) Review of Systems 2 Review of Systems: Yes all other systems are reviewed and are negative Constitutional: Constitutional: Reports as per [facility] Past Medical History Attestation statement: The following information was validated with the patient. Medical History Elevated brain natriuretic peptide (BNP) level Kidney disease Bipolar 1 disorder HTN (hypertension) Diabetes Social History Social History Household Members: None Household Members Other:: 3 other people live in long-term Housing: Apartment Housing Other:: currently at [facility] for past month Do you presently have visiting nurse or other home services: No Alcohol intake: former Comment: one to one sitter at bed side Patient Tobacco Use Status: Former Tobacco user Tobacco use type: Cigarette Cigarette Packs Per Day: 0.5 Cigarettes Per Day: 10.0 Smoked in Last 30 Days: No Second Hand Smoke Exposure: No Use of substances other than those prescribed or required for medical reasons: No Advance Directives: Yes Advance Directives on File: Yes Advance Directives Date on File: 11/25/19 service: No Sexual orientation: Px. was asleep when called for this assessment. Physical Exam ED Vital Signs: Vital Signs - 24 hr 06/01/23 01:56 06/01/23 01:57 06/01/23 02:00 Temperature 98.5 F 98.5 F 98.5 F Pulse Rate 79 78 78 Respiratory Rate 17 20 20 Blood Pressure 174/79 H 171/67 H 171/67 H Pulse Oximetry 94 92 92 Oxygen Delivery Method Nasal Cannula Room Air Room Air Oxygen Flow Rate 2 06/01/23 04:10 06/01/23 06:34 06/01/23 09:15 Temperature 98.8 F 98.7 F 98.7 F Pulse Rate 75 86 74 Respiratory Rate 17 17 20 Blood Pressure 183/81 H 197/80 H 191/88 H Pulse Oximetry 93 96 96 Oxygen Delivery Method Room Air Nasal Cannula Nasal Cannula Oxygen Flow Rate 2 2 06/01/23 10:07 06/01/23 13:30 06/01/23 15:00 Temperature 98.4 F Pulse Rate 84 74 Respiratory Rate 22 H 16 Blood Pressure 151/69 H 174/65 H Pulse Oximetry 86 L 93 100 Oxygen Delivery Method Room Air Nasal Cannula Nasal Cannula Oxygen Flow Rate 2 2 06/01/23 17:05 06/01/23 18:17 06/01/23 19:25 Temperature Pulse Rate Respiratory Rate Blood Pressure Pulse Oximetry 95 94 92 Oxygen Delivery Method Room Air Room Air Room Air Oxygen Flow Rate 06/01/23 19:49 Temperature 0 F L Pulse Rate 80 Respiratory Rate 16 Blood Pressure 0/0 L Pulse Oximetry 92 Oxygen Delivery Method Oxygen Flow Rate BMI result Body Mass Index 46.9 Const General: cooperative, comfortable and no acute distress Orientation/consciousness: patient oriented x3 Limitations: no limitations HENMT Head: Yes normal to inspection, Yes normocephalic and Yes atraumatic Ears: hearing grossly normal bilaterally General nose exam: Normal external nose present Face and sinus: Yes normal facial exam Mouth: Normal oral and palatal mucosa present, oropharynx normal and moist mucous membranes Throat: Yes posterior oropharynx normal Eyes General: appearance normal, both eyes and all related structures Eyelids: Yes eyelids normal Conjunctivae: conjunctivae normal Sclerae: sclerae normal Pupils: Equal, round and reactive pupils present EOM: EOMs intact bilaterally Neck Neck: Yes normal visual inspection, Yes full ROM and Yes no lymphadenopathy Lymphatic: no lymphadenopathy noted Chest Chest palpation & inspection: normal inspection of the chest Resp Other: Crackles auscultated in bilateral lung bases Effort & Inspection: normal respiratory effort and able to speak in complete sentences Cardio Rate: regular rate Rhythm: regular rhythm Heart sounds: S1 normal heart sound present and S2 normal heart sound present GI Other: Abdomen is soft, nontender Inspection: Yes normal to inspection Skin General skin exam: no rashes or lesions noted Trauma: no lacerations or abrasions Wounds: no wounds Neuro General: patient oriented x3 and moves all extremities Cranial nerves: Yes Equal, round and reactive pupils present Extrem Other: 1+ pitting edema noted bilaterally. Right calf tenderness palpation General: Yes normal to inspection Right upper extremity: normal to inspection Left upper extremity: normal to inspection Right lower extremity: normal to inspection Left lower extremity: normal to inspection Course Reevaluation(s) Reevaluation #1: Second troponin flat, without any delta change. BNP elevated at 501. Crackles heard during lung examination. Chest x-ray showing mild interstitial edema. Upon further questioning, patient states that she has not been taking her prescribed medication, she states that she is refusing because she ?wants to , she also expresses thoughts stabbing herself in the belly. I spoke to the traffic supervisor who states that patient refused all home medications yesterday including her Lasix. I took patient off of oxygen and patient's oxygen saturation dipped between 86 and 88% on room air. It is very important that patient received Lasix as she is fluid overloaded. Patient refusing all medications at this time as she wants to end her life. I am unsure whether not patient has medical capacity to make these medical decisions for herself. Given this, this requires care team/psychiatric input. Time: 09:23 Reevaluation #2: Discussed case with my attending physician, Dr. Golden, who recommends reaching out to care team. Patient is currently under a section 7 and 8. Care team recommending psychiatric consult. Dr. De Souza will look into capacity to see if she has the right to refuse medical treatment. Time: 11:00 Reevaluation #3: Pt becoming increasingly agitated, pt had to be placed in soft restraints and given IM haldol (this is one of her jeff's order medications). Pt spitting in staff members faces and attempting to bite, spit shield placed on patient. Awaiting Dr. De Souza's capacity to make medical decisions. Time: 13:30 Additional Reevaluation(s): 06/01/2023 - 1638 - Dr. De Souza seeing patient at bedside, attempting to figure out if she has the capacity to refuse medical treatment. Will remove oxygen off of patient to see if she is hypoxic as if she becomes hypoxic then she may qualify for hospital admission for CHF exacerbation. She still is refusing Lasix at this time. Will continue to closely monitor. 18:17- I reviewed the patient's workup, she appears to have mild CHF which is likely related to her refusing her Lasix. She is off oxygen at this time and her oxygen saturations maintaining 94%. Psychiatry, Dr. De Souza feels the patient likely does not have capacity to make medical decisions. However, at this time there is no Jeff's orders to take her medications that are not her psychiatric medications. The patient is medically stable for discharge. She does not ambulate, but an ambulation trial was considered prior to discharge. Medications Administered Discontinued Medications Generic Name Dose Route Start Last Admin Trade Name [place] PRN Reason Stop Dose Admin Acetaminophen 975 mg 06/01/23 15:56 06/01/23 16:28 Acetaminophen 325 Mg Tablet PO 06/01/23 15:57 975 mg ONCE ONE Administration Furosemide 40 mg 06/01/23 10:17 06/01/23 12:11 Furosemide 40 Mg/4 Ml Vial IVPUSH 06/01/23 10:18 Not Given STAT STA Protocol Furosemide 40 mg 06/01/23 13:12 06/01/23 15:47 Furosemide 40 Mg/4 Ml Vial IVPUSH 06/01/23 13:13 Not Given STAT STA Protocol Haloperidol Lactate 2.5 mg 06/01/23 13:16 06/01/23 13:41 Haloperidol Lactate 5 Mg/Ml Vial IM 06/01/23 13:17 2.5 mg STAT STA Administration Medical Decision Making Medical Decision Making [facility] Narrative: This is a 82-sorc-tjb-female, with a hx of kidney disease, bipolar disorder, hypertension, and diabetes, presenting to the ER from [place], accompanied by [facility] staff member, with a complaints of shortness of breath and increased lower extremity swelling. On arrival, patient is slightly hypertensive at 174/79, she is saturating at 94% on 2 L nasal cannula. Crackles auscultated in bilateral lung bases. 1+ pitting edema noted bilaterally. She also has right calf tenderness to palpation. She has usually not dependent on O2 supplementation. Presentation concerning for acute CHF exacerbation. Upon review, patient's medical facility states that she has been refusing her medications at home. Facility member states that she refused all her medications yesterday, was able to take her medications on May 30, 2023. Plan: Labs, EKG, chest x-ray, viral swabs Differential Diagnosis Differential Diagnoses: The differential diagnosis associated with the presentation includes CHF, pneumonia, URI, viral syndrome, DVT, ACS Admission/Observation Consideration of admission/observation: Escalation of care including admission/observation considered Escalation of care including admission/observation considered however given workup today not warranted at this time. Consult Healthcare Provider Management of the patient was discussed with: [employer] Senior Manager and Behavioral Health Provider Dr. De Souza Lab Data MDM Lab Attestation statement: I reviewed the patient's lab results. No leukocytosis, normocytic anemia noted with an H&H of 8.7/28.7, BUN elevated at 27 appears to be at her baseline. Creatinine 1.06 similar to previous. Hyperglycemic at 141 06/01/23 02:32 06/01/23 02:31 Labs: Lab Results 06/01/23 06/01/23 06/01/23 Range/Units 02:31 02:32 06:40 WBC 8.2 (4.8-10.8) X10*3/uL RBC 3.32 L (4.20-5.50) X10*6/uL Hgb 8.7 L (12.0-16.0) g/dl Hct 28.7 L (37.0-47.0) % MCV 86.4 (80.0-98.0) fL MCH 26.2 L (27.0-33.0) pg MCHC 30.3 L (31.0-35.0) g/dl RDW 18.9 H (11.0-16.0) % Plt Count 194 (160-400) X10*3/uL MPV 10.7 (9.4-12.3) fL Immature Gran % (Auto) 0.7 H (0.0-0.4) % Neut % (Auto) 58.4 (45-73) % Lymph % (Auto) 21.1 (20-40) % [place] % (Auto) 9.6 (2-11) % Eos % (Auto) 8.7 H (0-4) % Baso % (Auto) 1.5 (0-2) % Lymph # (Auto) 1.7 (1.2-4.9) X10*3/uL [place] # (Auto) 0.8 (0.1-1.2) X10*3/uL Eos # (Auto) 0.7 H (0.0-0.4) X10*3/uL Baso # (Auto) 0.1 (0.0-0.2) X10*3/uL Abs Immat Gran (auto) 0.06 H (0.00-0.03) X10*3/uL Absolute Neuts (auto) 4.8 (2.0-8.3) x10*3/uL Absolute Nucleated RBC 0.030 H (0.0-0.012) X10*3/uL Nucleated RBC % (auto) 0.4 H (0.0-0.2) /100WBC Sodium 140 (135-145) mmol/L Potassium 4.1 (3.3-5.1) mmol/L Chloride 106 (96-108) mmol/L Carbon Dioxide 27 (22-29) mmol/L Anion Gap 11 L (12-20) BUN 27 H (9-16) mg/dL Creatinine 1.06 (0.5-1.4) mg/dL Estim Creat Clear Calc 83.6 Estimated GFR 54 POC Glucose (60-115) mg/dL Random Glucose 141 H (60-115) mg/dL Calcium 9.2 (8.4-10.2) mg/dL Troponin I High Sens 7.9 D 7.2 (<3.5-17.0) ng/L B-Natriuretic Peptide 501 H (<100) pg/mL Influenza Type A (PCR) (Negative) Influenza Type B (PCR) (Negative) RSV RNA Qual (PCR) (Negative) SARS-CoV-2 RNA (RT-PCR) (Negative) 06/01/23 06/01/23 Range/Units 07:41 18:32 WBC (4.8-10.8) X10*3/uL RBC (4.20-5.50) X10*6/uL Hgb (12.0-16.0) g/dl Hct (37.0-47.0) % MCV (80.0-98.0) fL MCH (27.0-33.0) pg MCHC (31.0-35.0) g/dl RDW (11.0-16.0) % Plt Count (160-400) X10*3/uL MPV (9.4-12.3) fL Immature Gran % (Auto) (0.0-0.4) % Neut % (Auto) (45-73) % Lymph % (Auto) (20-40) % [place] % (Auto) (2-11) % Eos % (Auto) (0-4) % Baso % (Auto) (0-2) % Lymph # (Auto) (1.2-4.9) X10*3/uL [place] # (Auto) (0.1-1.2) X10*3/uL Eos # (Auto) (0.0-0.4) X10*3/uL Baso # (Auto) (0.0-0.2) X10*3/uL Abs Immat Gran (auto) (0.00-0.03) X10*3/uL Absolute Neuts (auto) (2.0-8.3) x10*3/uL Absolute Nucleated RBC (0.0-0.012) X10*3/uL Nucleated RBC % (auto) (0.0-0.2) /100WBC Sodium (135-145) mmol/L Potassium (3.3-5.1) mmol/L Chloride (96-108) mmol/L Carbon Dioxide (22-29) mmol/L Anion Gap (12-20) BUN (9-16) mg/dL Creatinine (0.5-1.4) mg/dL Estim Creat Clear Calc Estimated GFR POC Glucose 136 H (60-115) mg/dL Random Glucose (60-115) mg/dL Calcium (8.4-10.2) mg/dL Troponin I High Sens (<3.5-17.0) ng/L B-Natriuretic Peptide (<100) pg/mL Influenza Type A (PCR) NEGATIVE (Negative) Influenza Type B (PCR) NEGATIVE (Negative) RSV RNA Qual (PCR) NEGATIVE (Negative) SARS-CoV-2 RNA (RT-PCR) NEGATIVE (Negative) Independent Interpretation I performed an independent interpretation of an: EKG Interpretation: EKG normal sinus rhythm the right branch bundle block seen ventricular rate of 77 beats per minute, HI interval 184, QT QTC 444/5 O2 T-wave inversion noted in V4 through V6, similar appearing EKG from previous Radiology Impression Discussion of test interpretation with radiology: I have reviewed the radiologist's reading. Radiologist Impression: EXAMINATION: XR CHEST CLINICAL INFORMATION: Shortness of breath COMPARISON: 05/27/2023 TECHNIQUE: Frontal view of the chest was obtained. FINDINGS: There are mildly prominent interstitial markings bilaterally without vascular congestion, there is bilateral vascular distribution seen. Cardiomediastinal silhouette is borderline. There is pacemaker recorder projecting over the left hemithorax. XR/XR chest 1V IMPRESSION: Mild interstitial edema Dictated By: Roro Leonard MD EXAMINATION: US VENOUS ULTRASOUND WITH DOPPLER LOWER EXTREMITY, RIGHT CLINICAL INFORMATION: Calf pain COMPARISON: None available. TECHNIQUE: Ultrasound of the deep veins is performed from the hip to the calf with compression sonography and color and pulse Doppler assessment. Spectral analysis with color-flow imaging is performed. FINDINGS: There is normal venous compression and respiratory variation and augmented flow. The visualized common femoral vein, superficial femoral vein, profunda femoral vein, popliteal vein show no evidence of deep venous thrombosis. Tibial veins were not visualized. There is no significant popliteal fossa cyst. If the patient's symptoms persist, followup ultrasound in 5 days 7 days might be of value to exclude proximal propagation from a non-visualized calf vein. US/US venous duplex LE RT IMPRESSION: No DVT demonstrated in the right lower extremity. Dictated By: Gordy Cabrera MD Critical Care Time Critical Care Time Critical Care Time: Yes Total Critical Care Time: 60 Attestation: I have personally provided critical care time exclusive of time spent on separately billable procedures. Time includes review of lab data, radiology results, discussion with consultants, and monitoring for potential decompensation. Intervention performed as documented. Discharge Plan Discharge Clinical Impression: Congestive heart failure, Borderline personality disorder, Noncompliance with medication regimen Patient Disposition: Home, Self-Care Instructions: Heart Failure (ED) Additional Instructions: Your workup in the emergency room today was significant for mild congestive heart failure. This is likely related to being noncompliant with your Lasix medication I recommend that you take all of your medications as prescribed Return for new or worsening symptoms Prescriptions: No Action benztropine 0.5 mg Tablet 0.5 mg PO BID 30 Days Qty: 60 0RF levothyroxine 125 mcg Tablet 125 mcg PO DAILY 30 Days Qty: 30 0RF divalproex 500 mg Tablet Extended Release 24 Hr 1,000 mg PO BEDTIME 30 Days Qty: 60 0RF atorvastatin 40 mg tablet 40 mg PO BEDTIME prazosin 1 mg capsule 2 mg PO BEDTIME ferrous sulfate 325 mg (65 mg iron) tablet 325 mg PO BIDWM perphenazine 8 mg tablet 8 mg PO TID multivitamin Tablet 1 tab PO DAILY haloperidol 1 mg Tablet 2 mg PO BID PRN (Reason: Agitation) lorazepam 1 mg Tablet 1 mg PO BID PRN (Reason: Agitation) Rx Instructions: USE WITH HALDOL FOR SEVERE AGITATION venlafaxine 150 mg capsule,extended release 24hr 150 mg PO DAILY@0630 metformin 500 mg Tablet 500 mg PO BIDWMEAL clonidine HCl 0.1 mg Tablet 0.1 mg PO Q4H PRN (Reason: Hypertension) acetaminophen 325 mg Tablet 650 mg PO Q6H PRN (Reason: Pain, Mild) aspirin 81 mg Tablet,Delayed Release (Dr/Ec) 81 mg PO DAILY magnesium hydroxide [Milk of Magnesia] 400 mg/5 mL Suspension 30 ml PO DAILY PRN (Reason: Constipation) lisinopril 10 mg Tablet 10 mg PO DAILY omeprazole 20 mg Capsule,Delayed Release(Dr/Ec) 40 mg PO DAILY benztropine 1 mg/mL Solution 0.5 mg IM BID haloperidol lactate 5 mg/mL Solution 2.5 mg IM BID haloperidol lactate 5 mg/mL Solution 2 mg IM BID PRN (Reason: Agitation) albuterol sulfate 90 mcg/actuation Hfa Aerosol Inhaler 2 puff INHALATION Q6H PRN (Reason: Shortness Of Breath) mirtazapine 7.5 mg Tablet 7.5 mg PO BEDTIME alum-mag hydroxide-simeth [Mylanta] 200-200-20 mg/5 mL Suspension 30 ml PO Q6H PRN (Reason: Dyspepsia) Rx Instructions: administer between meals and at bedtime ondansetron 4 mg Tablet,Disintegrating 8 mg PO Q8H PRN (Reason: Nausea And Vomiting) benzocaine 20 % Gel 1 appl MUCOUS MEMBRANE QID PRN (Reason: Pain, Mild) lurasidone 60 mg Tablet 60 mg PO QPM Rx Instructions: AFTER DINNER Interventions: ED Discharge Assessment Last Done: 06/01/23 19:49 Discharge Date/Time: 06/01/23 19:50 Print Language: Albanian
[2023-06-01 07:12] LABS: Troponin-I High Sensitivity 7.2 ng/L (<3.5-17.0)
[2023-06-01 07:13] LABS: B Type Natriuretic Peptide 501 pg/mL (<100)
--- NOTE | 2023-06-01 07:57 | PC.NURSE ---
staff from [facility] at bedside, patient initially trying to refuse care and state she wishes to return. will re-attempt ultrasound, was agreeable to xray and sars swab
[2023-06-01 09:02] LABS: Influenza A PCR NEGATIVE (Negative); Influenza B PCR NEGATIVE (Negative); Resp Syncy Virus RNA Qual PCR NEGATIVE (Negative); SARS COV2 PCR INHOUSE NEGATIVE (Negative)
--- NOTE | 2023-06-01 10:19 | PC.NURSE ---
600mL urine output with pure wick
--- NOTE | 2023-06-01 11:15 | PC.NURSE ---
attempted to call jesus childress ([facility]) to give and update [phone]. unable to reach the nurse at facility for update.
--- NOTE | 2023-06-01 11:17 | PHA.MEDREC ---
Pharmacy Consult ? Medication Reconciliation Pharmacy has completed the medication reconciliation using med list from [place].
--- NOTE | 2023-06-01 11:33 | PC.NURSE ---
[facility] unable to staff with patient observer at this time. camera placed in room for patient safety. attempted to place IV, patient continues to refuse at this time.
--- NOTE | 2023-06-01 11:58 | PC.NURSE ---
patient attempting to get self out of bed, sliding down in the bed. removed arborist representative leads, trying to remove oxygen tubing. no longer responding to questions, continues pulling at equipment in agitation
--- NOTE | 2023-06-01 12:12 | PC.NURSE ---
camera placed in room along with patient observer at bedside for safety.
--- NOTE | 2023-06-01 13:30 | PC.NURSE ---
patient continues to pull at all devices and try to remove self from bed, continues to state that she wants to do. I'm gonna and I'm ready to . placed in soft restraints at this time. has stahl order in place for psych medications.
[2023-06-01] MEDS: Haloperidol Lactate 5 MG/ML VIAL 2.5 MG IM (13:41)
--- NOTE | 2023-06-01 14:05 | MHC.CARE ---
Spoke with Diallo Lehman, who agree to find and fax patient's stahl order to the CARE team fax. Additionally called listed [facility] worked and [facility] worker, left with no PHI requesting call back to discuss a mutual patient.
--- NOTE | 2023-06-01 14:56 | PC.NURSE ---
attempting to take patient out of soft restraints, understanding in the event she begins to pull at the devices that she will be back in the restraints. patient observer remains at bedside for patient safety
--- NOTE | 2023-06-01 15:54 | PC.NURSE ---
full linen change obatined. psychiatry in meeting with patient at this time.
[2023-06-01] MEDS: Acetaminophen 325 MG TABLET 975 MG PO (16:28)
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
--- NOTE | 2023-06-01 17:04 | PC.NURSE ---
patient has been taken off of oxygen, maintaining 92-94% on room air
--- NOTE | 2023-06-01 18:18 | PC.NURSE ---
does not ambulate, states she uses a wheel chair at baseline. has maintained on room air > 92% for over an hour
[2023-06-01 18:36] LABS: Glucose, Whole Blood 136 mg/dL (60-115)
--- NOTE | 2023-06-01 18:47 | PC.NURSE ---
attempted to call [facility] for report x2, no answer.
--- NOTE | 2023-06-01 19:20 | PC.NURSE ---
PT removed O2 monitoring,refuses to put back on @ this time. Sitter @ bedside for safety. Awaiting EMS pick up man.
== END 2023-06-01 19:50 | disposition home or self-care (01) ==
PROVIDERS: Physician Assistant Medical; Emergency Provider Emergency Medicine Emergency Medical Services
DX: I50.9 Heart failure, unspecified (principal); F43.10 Post-traumatic stress disorder, unspecified; F60.3 Borderline personality disorder; F25.0 Schizoaffective disorder, bipolar type; R06.02 Shortness of breath; Z79.899 Other long term (current) drug therapy; Z91.148 Patient's other noncompliance with medication regimen for other reason
CPT/HCPCS: 0241U; 36415; 71045; 80048; 82947; 83880; 84484; 85025; 93005; 93971; 96372; 99284; 99285; J1630

== ENCOUNTER → 2023-06-01 02:02 | Outpatient (BNV) | payer OTHER, SELFPAY | PROVIDERS: Emergency Provider Emergency Medicine Emergency Medical Services; Visit Provider Internal Medicine Cardiovascular Disease | DX: R06.02 Shortness of breath (principal) | CPT/HCPCS: 93010 ==

== ENCOUNTER → 2023-06-01 03:58 | Outpatient (BNV) | payer OTHER, SELFPAY | PROVIDERS: Emergency Provider Emergency Medicine Emergency Medical Services; Visit Provider Psychiatry & Neurology Psychiatry | DX: F60.3 Borderline personality disorder (principal); F25.0 Schizoaffective disorder, bipolar type; I50.9 Heart failure, unspecified; F43.10 Post-traumatic stress disorder, unspecified | CPT/HCPCS: 99283 ==